=== PATIENT | female | born 1955 | race Caucasian/White ===

== ENCOUNTER 2024-03-29 20:32 | Inpatient (IN) | payer MEDICARE, OTHER ==
--- NOTE | 2024-03-29 20:46 | ED ---
Abdominal Pain HPI - General Source: patient, family, RN notes reviewed Mode of arrival: ambulatory Limitations: no limitations <Halley Camargo - Last Filed: 03/29/24 20:45> - General Source: patient, family, RN notes reviewed <Reg Mtz - Last Filed: 03/30/24 01:29> - General Stated Complaint: Weakness,Dehydration Time Seen by Provider: 03/29/24 20:45 - History of Present Illness Initial Comments: Quick note: 68-year-old female presented to ER with a chief complaint of weakness and abdominal distention. She states for approximately 1-1/2 weeks she has noticed an increase in abdominal discomfort and distention. She denies any nausea, vomiting, constipation/diarrhea. She does report a decreased appetite. states they were sent by Dr. Esparza due to weakness. Denies any fevers. (Halley Camargo) Patient is a 68-year-old female presents emergency department complaining of multiple weeks of worsening weakness, abdominal distention, as well as skin turning yellow. Patient does have history of alcohol abuse but last drink was over 2 weeks ago. Denies any abdominal pain other than distention. Denies any chest pain or shortness of breath. No other acute complaints at this time. Presents for further evaluation at this time. Denies having a PCP. (Reg Mtz) - Related Data Allergies Allergy/AdvReac Type Severity Reaction Status Date / Time azithromycin AdvReac Abdominal Verified 03/29/24 20:47 Pain Review of Systems ROS Other: All systems not noted in ROS Statement are negative. <Halley Camargo - Last Filed: 03/29/24 20:45> ROS Other: All systems not noted in ROS Statement are negative. <Reg Mtz - Last Filed: 03/30/24 01:29> ROS Statement: Those systems with pertinent positive or pertinent negative responses have been documented in the HPI. Review of Systems: CONST: Denies fever EYES: Denies blurry vision ENT: Denies nasal congestion C/V: Denies Chest pain RESP: Denies shortness of breath GI: Endorses abdominal distention : Denies dysuria SKIN: Denies rash. MSK: Denies joint pain. NEURO: Denies headache (Reg Mtz) General Exam <Halley Camargo - Last Filed: 03/29/24 20:45> <Reg Mtz - Last Filed: 03/30/24 01:29> - General Exam Comments Initial Comments: Visual Physical Exam Vital signs reviewed General: Well-appearing, nontoxic, no acute distress. Distended abdomen and jaundice Head: Normocephalic, atraumatic Eyes: PERRLA, EOMI ENT: Airway patent Chest: Nonlabored breathing Skin: No visual rash, normal skin tone Neuro: Alert and oriented 3 Musculoskeletal: No gross abnormalities (Halley Camargo) General: Appears anxious. HEAD: Normal with no signs of head trauma. EYES: PERRLA, EOMI, conjunctiva normal, no discharge. Scleral icterus. ENT: Hearing grossly intact, normal oropharynx. RESPIRATORY: Clear breath sounds bilaterally. No wheezes, rales, or rhonchi. C/V: Regular rate and rhythm. S1 and S2 auscultated, no edema, peripheral pulses 2+ and intact throughout ABD: Abdomen is distended with fluid wave. No significant tenderness. No guarding. EXT: Normal range of motion, no obvious deformity SKIN: Patient is jaundiced. NEURO: Alert and oriented x 4. (Reg Mtz) Course Vital Signs 03/29/24 20:41 Temperature 97.9 F Pulse Rate 114 H Respiratory 18 Rate Blood Pressure 118/72 O2 Sat by Pulse 94 L Oximetry Medical Decision Making <Halley Camargo - Last Filed: 03/29/24 20:45> - Lab Data Result diagrams: 03/29/24 20:58 03/29/24 20:58 <Reg Mtz - Last Filed: 03/30/24 01:29> - Medical Decision Making I performed the quick note portion of this chart. Electronically signed by Halley Camargo PA-C (Halley Camargo) Was pt. sent in by a medical professional or institution (YESENIA Ludwig, FUR TAILOR, urgent care, hospital, or jail...) When possible be specific @ -No Did you speak to anyone other than the patient for history (EMS, parent, family, police, friend...)? What history was obtained from this source @ -No Did you review nursing and triage notes (agree or disagree)? Why? @ -I reviewed and agree with nursing and triage notes Were old charts reviewed (outside hosp., previous admission, EMS record, old EKG, old radiological studies, urgent care reports/EKG's, jail records)? Report findings @ -No old charts were reviewed Differential Diagnosis (chest pain, altered mental status, abdominal pain women, abdominal pain men, vaginal bleeding, weakness, fever, dyspnea, syncope, headache, dizziness, GI bleed, back pain, seizure, CVA, palpatations, mental health, musculoskeletal)? @ -Differential Abdominal Pain Women: Appendicitis, Cholecystitis, diverticulosis, ischemic bowel, pancreatitis, hepatitis, UTI, gastroenteritis, AAA, incarcerated hernia, bowel obstruction, constipation, inflammatory bowel, hepatitis, peptic ulcer disease, splenic infarction, perforated viscus, vulvitis, ovarian torsion, PID, kidney stone, placenta abruption, this is not meant to be an all-inclusive list EKG interpreted by me (3pts min.). @ -None done X-rays interpreted by me (1pt min.). @ -None done CT interpreted by me (1pt min.). @ -CT abdomen pelvis reveals liver cirrhosis, portal venous hypertension with some severe intraperitoneal ascites and paraesophageal varices. U/S interpreted by me (1pt. min.). @ -None done What testing was considered but not performed or refused? (CT, X-rays, U/S, labs)? Why? @ -None What meds were considered but not given or refused? Why? @ -None Did you discuss the management of the patient with other professionals (professionals i.e. , PA, FUR TAILOR, lab, RT, psych nurse, social work job titles, wire insulator, te acher, loan officer, classification case manager)? Give summary @ -Discussed with admitting physician, city call Dr. Carmen who accepted the admission. Was smoking cessation discussed for >3mins.? @ -No Was critical care preformed (if so, how long)? @ -No Were there social determinants of health that impacted care today? How? (Homelessness, low income, unemployed, alcoholism, drug addiction, transportation, low edu. Level, literacy, decrease access to med. care, [facility], rehab)? @ -No Was there de-escalation of care discussed even if they declined (Discuss DNR or withdrawal of care, Hospice)? DNR status @ -No What co-morbidities impacted this encounter? (DM, HTN, Smoking, COPD, CAD, Cancer, CVA, ARF, Chemo, Hep., AIDS, mental health diagnosis, sleep apnea, morbid obesity)? @ -Alcohol abuse Was patient admitted / discharged? Hospital course, mention meds given and route, prescriptions, significant lab abnormalities, going to OR and other pertinent info. @ -Patient presents emergency department with abdominal distention, turning yellow, weakness, which has been ongoing for a few weeks. Workup started as a quick note. Labs returned remarkable for elevated hepatobiliary function in the setting of chronic alcohol abuse and findings of cirrhosis and portal venous hypertension on CT imaging likely all secondary to her alcohol abuse. Lipase is also slightly elevated. She has no pain or tenderness. I believe hepatobiliary labs as well as elevated lactic acid are all secondary to the cirrhosis. I discussed with the patient. She does feel anxious. No concern for infection at this time. Patient will be empirically given a dose of Zosyn as well as IV Protonix. She is given a dose of Ativan. To avoid making the ascites worse we will not provide her with IV fluids at this time but encourage oral hydration. I recommended admission for evaluation by gastroenterology Dr. Moss and she was in agreement this plan. I spoke with the admitting physician, Dr. Churchill who accepted the admission. Dr. Moss consulted. Undiagnosed new problem with uncertain prognosis? @ -No Drug Therapy requiring intensive monitoring for toxicity (Heparin, Nitro, Insulin, Cardizem)? @ -No Were any procedures done? @ -No Diagnosis/symptom? @ -Cirrhosis, ascites, jaundice, alcohol abuse Acute, or Chronic, or Acute on Chronic? @ -Acute Uncomplicated (without systemic symptoms) or Complicated (systemic symptoms)? @ -Complicated Side effects of treatment? @ -No Exacerbation, Progression, or Severe Exacerbation? @ -No Poses a threat to life or bodily function? How? (Chest pain, USA, PR, pneumonia, PE, COPD, DKA, ARF, appy, cholecystitis, CVA, Diverticulitis, Homicidal, Suicidal, threat to staff... and all critical care pts) @ -Yes (Reg Mtz) - Lab Data Lab Results 03/29/24 03/29/24 03/29/24 Range/Units 20:58 20:58 20:58 WBC 12.0 H (3.8-10.6) k/uL RBC 3.45 L (3.80-5.40) m/uL Hgb 13.5 (11.4-16.0) gm/dL Hct 40.8 (34.0-46.0) % MCV 118.3 H (80.0-100.0) fL MCH 39.1 H (25.0-35.0) pg MCHC 33.1 (31.0-37.0) g/dL RDW 13.8 (11.5-15.5) % Plt Count 174 (150-450) k/uL MPV 9.4 Neutrophils % 77 % Lymphocytes % 13 % Monocytes % 7 % Eosinophils % 1 % Basophils % 1 % Neutrophils # 9.3 H (1.3-7.7) k/uL Lymphocytes # 1.6 (1.0-4.8) k/uL Monocytes # 0.8 (0-1.0) k/uL Eosinophils # 0.1 (0-0.7) k/uL Basophils # 0.1 (0-0.2) k/uL Manual Slide Review Performed Polychromasia Present Macrocytosis Marked A Target Cells Present PT 16.8 H (10.0-12.5) sec INR 1.7 H (<1.2) APTT 35.1 H (22.0-30.0) sec Sodium 130 L (137-145) mmol/L Potassium 4.6 (3.5-5.1) mmol/L Chloride 97 L (98-107) mmol/L Carbon Dioxide 20 L (22-30) mmol/L Anion Gap 13 mmol/L BUN 22 H (7-17) mg/dL Creatinine 0.85 (0.52-1.04) mg/dL Est GFR (CKD-EPI)AfAm 81 (>60 ml/min/1.73 sqM) Est GFR (CKD-EPI)NonAf 70 (>60 ml/min/1.73 sqM) Glucose 129 H (74-99) mg/dL Lactic Ac Sepsis Rflx Plasma Lactic Acid Santos (0.7-2.0) mmol/L Calcium 8.5 (8.4-10.2) mg/dL Total Bilirubin 8.7 H (0.2-1.3) mg/dL Conjugated Bilirubin 2.9 H (0.0-0.3) mg/dL Unconjugated Bilirubin 2.4 H (0.0-1.1) mg/dL Delta Bilirubin 3.4 H (0.0-0.2) mg/dL AST 161 H (14-36) U/L ALT 41 H (4-34) U/L Alkaline Phosphatase 192 H (38-126) U/L Ammonia (<30) umol/L Total Protein 8.6 H (6.3-8.2) g/dL Albumin 3.3 L (3.5-5.0) g/dL Amylase 67 (30-110) U/L Lipase 629 H (23-300) U/L Serum Alcohol mg/dL Influenza Type A (PCR) (Not Detectd) Influenza Type B (PCR) (Not Detectd) RSV (PCR) (Not Detectd) SARS-CoV-2 (PCR) (Not Detectd) 03/29/24 03/29/24 03/29/24 Range/Units 20:58 21:46 23:09 WBC (3.8-10.6) k/uL RBC (3.80-5.40) m/uL Hgb (11.4-16.0) gm/dL Hct (34.0-46.0) % MCV (80.0-100.0) fL MCH (25.0-35.0) pg MCHC (31.0-37.0) g/dL RDW (11.5-15.5) % Plt Count (150-450) k/uL MPV Neutrophils % % Lymphocytes % % Monocytes % % Eosinophils % % Basophils % % Neutrophils # (1.3-7.7) k/uL Lymphocytes # (1.0-4.8) k/uL Monocytes # (0-1.0) k/uL Eosinophils # (0-0.7) k/uL Basophils # (0-0.2) k/uL Manual Slide Review Polychromasia Macrocytosis Target Cells PT (10.0-12.5) sec INR (<1.2) APTT (22.0-30.0) sec Sodium (137-145) mmol/L Potassium (3.5-5.1) mmol/L Chloride (98-107) mmol/L Carbon Dioxide (22-30) mmol/L Anion Gap mmol/L BUN (7-17) mg/dL Creatinine (0.52-1.04) mg/dL Est GFR (CKD-EPI)AfAm (>60 ml/min/1.73 sqM) Est GFR (CKD-EPI)NonAf (>60 ml/min/1.73 sqM) Glucose (74-99) mg/dL Lactic Ac Sepsis Rflx Y Plasma Lactic Acid Santos 3.7 H* (0.7-2.0) mmol/L Calcium (8.4-10.2) mg/dL Total Bilirubin (0.2-1.3) mg/dL Conjugated Bilirubin (0.0-0.3) mg/dL Unconjugated Bilirubin (0.0-1.1) mg/dL Delta Bilirubin (0.0-0.2) mg/dL AST (14-36) U/L ALT (4-34) U/L Alkaline Phosphatase (38-126) U/L Ammonia <9 (<30) umol/L Total Protein (6.3-8.2) g/dL Albumin (3.5-5.0) g/dL Amylase (30-110) U/L Lipase (23-300) U/L Serum Alcohol mg/dL Influenza Type A (PCR) (Not Detectd) Influenza Type B (PCR) (Not Detectd) RSV (PCR) (Not Detectd) SARS-CoV-2 (PCR) (Not Detectd) 03/29/24 03/29/24 Range/Units 23:09 23:09 WBC (3.8-10.6) k/uL RBC (3.80-5.40) m/uL Hgb (11.4-16.0) gm/dL Hct (34.0-46.0) % MCV (80.0-100.0) fL MCH (25.0-35.0) pg MCHC (31.0-37.0) g/dL RDW (11.5-15.5) % Plt Count (150-450) k/uL MPV Neutrophils % % Lymphocytes % % Monocytes % % Eosinophils % % Basophils % % Neutrophils # (1.3-7.7) k/uL Lymphocytes # (1.0-4.8) k/uL Monocytes # (0-1.0) k/uL Eosinophils # (0-0.7) k/uL Basophils # (0-0.2) k/uL Manual Slide Review Polychromasia Macrocytosis Target Cells PT (10.0-12.5) sec INR (<1.2) APTT (22.0-30.0) sec Sodium (137-145) mmol/L Potassium (3.5-5.1) mmol/L Chloride (98-107) mmol/L Carbon Dioxide (22-30) mmol/L Anion Gap mmol/L BUN (7-17) mg/dL Creatinine (0.52-1.04) mg/dL Est GFR (CKD-EPI)AfAm (>60 ml/min/1.73 sqM) Est GFR (CKD-EPI)NonAf (>60 ml/min/1.73 sqM) Glucose (74-99) mg/dL Lactic Ac Sepsis Rflx Plasma Lactic Acid Santos (0.7-2.0) mmol/L Calcium (8.4-10.2) mg/dL Total Bilirubin (0.2-1.3) mg/dL Conjugated Bilirubin (0.0-0.3) mg/dL Unconjugated Bilirubin (0.0-1.1) mg/dL Delta Bilirubin (0.0-0.2) mg/dL AST (14-36) U/L ALT (4-34) U/L Alkaline Phosphatase (38-126) U/L Ammonia (<30) umol/L Total Protein (6.3-8.2) g/dL Albumin (3.5-5.0) g/dL Amylase (30-110) U/L Lipase (23-300) U/L Serum Alcohol <10 mg/dL Influenza Type A (PCR) Not Detected (Not Detectd) Influenza Type B (PCR) Not Detected (Not Detectd) RSV (PCR) Not Detected (Not Detectd) SARS-CoV-2 (PCR) Not Detected (Not Detectd) Disposition <Halley Camargo - Last Filed: 03/29/24 20:45> Time of Disposition: 23:09 <Reg Mtz - Last Filed: 03/30/24 01:29> Clinical Impression: Cirrhosis, Ascites, Jaundice, Alcohol abuse Disposition: ADMITTED IP TO THIS HOSP Condition: Serious
[2024-03-29 21:32] LABS: ALT 41 U/L (4-34); African American GFR (CKD) 81 (>60 ml/min/1.73 sqM); Amylase 67 U/L (30-110); Anion Gap 13 mmol/L; Bilirubin, Conjugated 2.9 mg/dL (0.0-0.3); Bilirubin, Delta 3.4 mg/dL (0.0-0.2); Bilirubin,Unconjugated 2.4 mg/dL (0.0-1.1); Blood Urea Nitrogen 22 mg/dL (7-17); Calcium 8.5 mg/dL (8.4-10.2); Carbon Dioxide 20 mmol/L (22-30); Chloride 97 mmol/L (98-107); Glucose 129 mg/dL (74-99); INR 1.7 (<1.2); Lipase 629 U/L (23-300); Non-African American GFR(CKD) 70 (>60 ml/min/1.73 sqM); Partial Thromboplastin Time 35.1 sec (22.0-30.0); Prothrombin Time 16.8 sec (10.0-12.5); Sodium 130 mmol/L (137-145); Total Bilirubin 8.7 mg/dL (0.2-1.3); Total Protein 8.6 g/dL (6.3-8.2)
[2024-03-29 21:38] LABS: Basophils # (A) 0.1 k/uL (0-0.2); Basophils % (A) 1 %; Eosinophils # (A) 0.1 k/uL (0-0.7); Eosinophils % (A) 1 %; HCT 40.8 % (34.0-46.0); HGB 13.5 gm/dL (11.4-16.0); Lymphocytes # (A) 1.6 k/uL (1.0-4.8); Lymphocytes % (A) 13 %; MCH 39.1 pg (25.0-35.0); MCHC 33.1 g/dL (31.0-37.0); MCV 118.3 fL (80.0-100.0); Macrocytosis Marked; Mean Platelet Volume 9.4; Monocytes # (A) 0.8 k/uL (0-1.0); Monocytes % (A) 7 %; Neutrophils # (A) 9.3 k/uL (1.3-7.7); Neutrophils % (A) 77 %; Platelet Count 174 k/uL (150-450); RBC 3.45 m/uL (3.80-5.40); RDW 13.8 % (11.5-15.5)
[2024-03-29 21:43] LABS: AST 161 U/L (14-36); Albumin 3.3 g/dL (3.5-5.0); Alkaline Phosphatase 192 U/L (38-126); Potassium 4.6 mmol/L (3.5-5.1)
--- NOTE | 2024-03-29 22:22 | CT ---
EXAMINATION TYPE: CT abdomen pelvis w con DATE OF EXAM: 03/29/2024 HISTORY: abd distention and jaundice CT DLP: 880.6mGycm Automated Exposure Control for Dose Reduction was Utilized. CONTRAST: CT scan of the abdomen and pelvis is performed with IV Contrast, patient injected with 100 ml mL of I sovue 300. COMPARISON: None. FINDINGS: LUNG BASES: No significant abnormality is appreciated. LIVER/GB: Gallbladder has distended margins. Finding probably related to underlying hepatocellular di sease. Liver is heterogeneously hypodense and somewhat small in size. Patent nondilated main portal v ein. PANCREAS: No significant abnormality is seen. SPLEEN: No significant abnormality is seen. ADRENALS: No significant abnormality is seen. KIDNEYS: No significant abnormality is seen. BOWEL: Paraesophageal varices distal esophagus. No abnormal small or large bowel dilatation. Stomach poorly distended and suboptimally evaluated. UTERUS/ADNEXA: No gross abnormality seen. LYMPH NODES: No greater than 1cm abdominal or pelvic lymph nodes are appreciated. OSSEOUS STRUCTURES: Moderate narrowing of both hip joints. OTHER: Moderate to severe intraperitoneal ascites in the abdomen and pelvis. IMPRESSION: 1. Underlying cirrhosis. Underlying portal venous hypertension with moderate to severe intraperitonea l ascites and paraesophageal varices.
[2024-03-29 22:30] LABS: Polychromasia Present; Target Cells Present
[2024-03-29] MEDS ORDERED: ONDANSETRON 4 MG/2 ML VIAL IVP PRN (23:09)
[2024-03-29] MEDS ORDERED: NALOXONE 0.4 MG/ML 1 ML VIAL IV PRN (23:09)
[2024-03-30] MEDS: PIPERACILLIN-TAZOBACTAM 3.375 GM in SODIUM CHLORIDE 0.9% 100 ML IVPB STA (00:37)
[2024-03-30] MEDS: LORazepam 0.5 MG TAB PO STA (00:37)
[2024-03-30] MEDS: PANTOPRAZOLE 40 MG/10 ML VIAL IVP STA (00:38)
[2024-03-30 07:24] LABS: Appearance,Urine Clear (Clear); Bacteria,Urine Rare /hpf; Bilirubin,Urine 1+ (Negative); Blood,Urine Small (Negative); Color,Urine Dark Yellow; Glucose,Urine (UA) Negative (Negative); Ketones,Urine Trace (Negative); Leukocyte Esterase,Urine Negative (Negative); Mucus,Urine Rare /hpf; Nitrite,Urine Negative (Negative); PH, Urine 5.5 (5.0-8.0); Protein,Urine Trace (Negative); RBC,Urine 6 /hpf (0-5); Squamous Epithelial Cell,Urine 10 /hpf (0-4); WBC,Urine 1 /hpf (0-5)
[2024-03-30 07:29] LABS: Specific Gravity,Urine >1.050 (1.001-1.035)
[2024-03-30 08:06] LABS: Basophils # (A) 0.1 k/uL (0-0.2); Basophils % (A) 1 %; Eosinophils # (A) 0.1 k/uL (0-0.7); Eosinophils % (A) 1 %; HCT 39.3 % (34.0-46.0); Lymphocytes # (A) 1.9 k/uL (1.0-4.8); Lymphocytes % (A) 16 %; MCH 39.8 pg (25.0-35.0); MCHC 33.1 g/dL (31.0-37.0); MCV 120.2 fL (80.0-100.0); Macrocytosis Marked; Mean Platelet Volume 9.4; Monocytes # (A) 0.7 k/uL (0-1.0); Monocytes % (A) 6 %; Neutrophils # (A) 9.4 k/uL (1.3-7.7); Neutrophils % (A) 77 %; Platelet Count 189 k/uL (150-450); RBC 3.27 m/uL (3.80-5.40); RDW 13.8 % (11.5-15.5); WBC 12.2 k/uL (3.8-10.6)
[2024-03-30 08:11] LABS: ALT 37 U/L (4-34); African American GFR (CKD) 81 (>60 ml/min/1.73 sqM); Anion Gap 12 mmol/L; Blood Urea Nitrogen 22 mg/dL (7-17); Calcium 8.2 mg/dL (8.4-10.2); Carbon Dioxide 21 mmol/L (22-30); Chloride 97 mmol/L (98-107); Glucose 105 mg/dL (74-99); Non-African American GFR(CKD) 70 (>60 ml/min/1.73 sqM); Sodium 130 mmol/L (137-145); Total Bilirubin 8.1 mg/dL (0.2-1.3); Total Protein 8.1 g/dL (6.3-8.2)
[2024-03-30 08:16] LABS: Potassium 4.7 mmol/L (3.5-5.1)
[2024-03-30 08:17] LABS: AST 142 U/L (14-36); Alkaline Phosphatase 168 U/L (38-126)
[2024-03-30] MEDS: PANTOPRAZOLE 40 MG/10 ML VIAL IVP SCH (09:21)
[2024-03-30] MEDS: FUROSEMIDE 20 MG TAB PO SCH (09:21)
[2024-03-30] MEDS: SPIRONOLACTONE 25 MG TAB PO SCH (09:22)
--- NOTE | 2024-03-30 13:22 | P.CONS ---
History of Present Illness - Reason for Consult Consult date: 03/30/24 Ascites Requesting physician: Reg Mtz - Chief Complaint Abdominal distention - History of Present Illness This is a pleasant 68-year-old female who presented to the emergency department for increased weakness, decreased appetite and abdominal distention. Patient has history of alcohol abuse and was drinking quite heavily. She admitted to drinking 3 back on squirts daily for at least 10 years. States she has not been drinking at all for the last 2 weeks duration. She had abdominal CT that reports cirrhosis of the liver, portal hypertension with moderate to severe ascites. She denies any previous history of liver disease, no history of hepatitis, no previous history of ascites. States that her abdomen has been distended for last 2 weeks duration with some discomfort. at the bedside states that he has not really noticed that she was jaundice but states that she has been sleeping quite a bit and had decreased appetite not eating or drinking much. Patient with elevated liver enzymes. She denies any abdominal pain at this time, no nausea or vomiting, no fevers or chills. Review of Systems REVIEW OF SYSTEMS: CARDIOPULMONARY: No chest pain or shortness of breath. Gastrointestinal: Abdominal pain. Abdominal distention. Decreased appetite. No nausea or vomiting. No hematemesis, coffee-ground emesis. No rectal bleeding, or melena. GENITOURINARY: No dysuria or hematuria. MUSCULOSKELETAL: Reports normal range of motion. SKIN: No rashes. No jaundice. ENDOCRINE: No chills, fevers. No excessive weight gain or loss. No polydipsia or polyuria. PSYCHIATRIC: Unremarkable. NEUROLOGY: No change in mental status. Denies dizziness, headache. ENT: Vision unremarkable. CONSTITUTIONAL: No recent weight loss. No fever, chills, night sweats. Weakness. Fatigue. Past Medical History Past Medical History: No Reported History History of Any Multi-Drug Resistant Organisms: None Reported Past Surgical History: No Surgical Hx Reported Past Psychological History: No Psychological Hx Reported Smoking Status: Never smoker Past Alcohol Use History: Daily Past Drug Use History: None Reported Medications and Allergies Home Medications Medication Instructions Recorded Confirmed Type No Known Home Medications 03/30/24 03/30/24 History Allergies Allergy/AdvReac Type Severity Reaction Status Date / Time azithromycin AdvReac Abdominal Verified 03/30/24 07:52 Pain Physical Exam Vitals: Vital Signs Temp Pulse Resp BP Pulse Ox 03/30/24 07:35 97.8 F 89 16 105/65 93 L 03/30/24 06:00 86 18 95/44 93 L 03/30/24 04:58 92 18 111/62 92 L 03/30/24 02:00 92 18 98/61 93 L 03/29/24 20:41 97.9 F 114 H 18 118/72 94 L Intake and Output 03/29/24 03/30/24 03/30/24 22:59 06:59 14:59 Other: Weight 74.843 kg General appearance: The patient is alert, oriented, appears in no acute distress. HET: Head is normocephalic and atraumatic. Conjunctiva pink. Sclera icteric. Neck: Supple without lymphadenopathy. Trachea midline. Heart: Regular. Lungs: Equal expansion, normal respiratory effort. Abdomen: Soft, nontender, distended, large amount of ascites. Skin: No rashes. Jaundice. Extremities: Normal skin color and turgor. No pedal edema. Neurological: No focal deficits. Alert and oriented x3. Results CBC & Chem 7: 03/30/24 06:49 03/30/24 06:49 Labs: Abnormal Lab Results - Last 24 Hours (Table) 03/29/24 03/29/24 03/29/24 Range/Units 20:58 20:58 20:58 WBC 12.0 H (3.8-10.6) k/uL RBC 3.45 L (3.80-5.40) m/uL MCV 118.3 H (80.0-100.0) fL MCH 39.1 H (25.0-35.0) pg Neutrophils # 9.3 H (1.3-7.7) k/uL Macrocytosis Marked A PT 16.8 H (10.0-12.5) sec INR 1.7 H (<1.2) APTT 35.1 H (22.0-30.0) sec Sodium 130 L (137-145) mmol/L Chloride 97 L (98-107) mmol/L Carbon Dioxide 20 L (22-30) mmol/L BUN 22 H (7-17) mg/dL Glucose 129 H (74-99) mg/dL Plasma Lactic Acid Santos (0.7-2.0) mmol/L Calcium (8.4-10.2) mg/dL Total Bilirubin 8.7 H (0.2-1.3) mg/dL Conjugated Bilirubin 2.9 H (0.0-0.3) mg/dL Unconjugated Bilirubin 2.4 H (0.0-1.1) mg/dL Delta Bilirubin 3.4 H (0.0-0.2) mg/dL AST 161 H (14-36) U/L ALT 41 H (4-34) U/L Alkaline Phosphatase 192 H (38-126) U/L Total Protein 8.6 H (6.3-8.2) g/dL Albumin 3.3 L (3.5-5.0) g/dL Lipase 629 H (23-300) U/L Ur Specific Ora (1.001-1.035) Urine Protein (Negative) Urine Ketones (Negative) Urine Blood (Negative) Urine Bilirubin (Negative) Urine RBC (0-5) /hpf Ur Squamous Epith Cells (0-4) /hpf Urine Bacteria (None) /hpf Urine Mucus (None) /hpf 03/29/24 03/29/24 03/30/24 Range/Units 20:58 23:57 06:35 WBC (3.8-10.6) k/uL RBC (3.80-5.40) m/uL MCV (80.0-100.0) fL MCH (25.0-35.0) pg Neutrophils # (1.3-7.7) k/uL Macrocytosis PT (10.0-12.5) sec INR (<1.2) APTT (22.0-30.0) sec Sodium (137-145) mmol/L Chloride (98-107) mmol/L Carbon Dioxide (22-30) mmol/L BUN (7-17) mg/dL Glucose (74-99) mg/dL Plasma Lactic Acid Santos 3.7 H* 3.1 H* (0.7-2.0) mmol/L Calcium (8.4-10.2) mg/dL Total Bilirubin (0.2-1.3) mg/dL Conjugated Bilirubin (0.0-0.3) mg/dL Unconjugated Bilirubin (0.0-1.1) mg/dL Delta Bilirubin (0.0-0.2) mg/dL AST (14-36) U/L ALT (4-34) U/L Alkaline Phosphatase (38-126) U/L Total Protein (6.3-8.2) g/dL Albumin (3.5-5.0) g/dL Lipase (23-300) U/L Ur Specific Ora >1.050 H (1.001-1.035) Urine Protein Trace H (Negative) Urine Ketones Trace H (Negative) Urine Blood Small H (Negative) Urine Bilirubin 1+ H (Negative) Urine RBC 6 H (0-5) /hpf Ur Squamous Epith Cells 10 H (0-4) /hpf Urine Bacteria Rare H (None) /hpf Urine Mucus Rare H (None) /hpf 03/30/24 03/30/24 03/30/24 Range/Units 06:49 06:49 06:49 WBC 12.2 H (3.8-10.6) k/uL RBC 3.27 L (3.80-5.40) m/uL MCV 120.2 H (80.0-100.0) fL MCH 39.8 H (25.0-35.0) pg Neutrophils # 9.4 H (1.3-7.7) k/uL Macrocytosis Marked A PT (10.0-12.5) sec INR (<1.2) APTT (22.0-30.0) sec Sodium 130 L (137-145) mmol/L Chloride 97 L (98-107) mmol/L Carbon Dioxide 21 L (22-30) mmol/L BUN 22 H (7-17) mg/dL Glucose 105 H (74-99) mg/dL Plasma Lactic Acid Santos 3.0 H* (0.7-2.0) mmol/L Calcium 8.2 L (8.4-10.2) mg/dL Total Bilirubin 8.1 H (0.2-1.3) mg/dL Conjugated Bilirubin (0.0-0.3) mg/dL Unconjugated Bilirubin (0.0-1.1) mg/dL Delta Bilirubin (0.0-0.2) mg/dL AST 142 H (14-36) U/L ALT 37 H (4-34) U/L Alkaline Phosphatase 168 H (38-126) U/L Total Protein (6.3-8.2) g/dL Albumin 3.0 L (3.5-5.0) g/dL Lipase (23-300) U/L Ur Specific Ora (1.001-1.035) Urine Protein (Negative) Urine Ketones (Negative) Urine Blood (Negative) Urine Bilirubin (Negative) Urine RBC (0-5) /hpf Ur Squamous Epith Cells (0-4) /hpf Urine Bacteria (None) /hpf Urine Mucus (None) /hpf Comments: CT abdomen pelvis with contrast reports underlying cirrhosis. Underlying portal venous hypertension with moderate to severe intraperitoneal ascites and paraesophageal varices. Assessment and Plan (1) Cirrhosis Narrative/Plan: 68-year-old female with alcohol abuse over the last 10 years duration admitting to at least 3 liquor drinks daily presenting with weakness, fatigue, decreased appetite and abdominal distention. CT abdomen pelvis showing ascites and nodular liver consistent with cirrhosis including portal hypertension. Patient with decompensated cirrhosis of the liver now with ascites secondary to alcohol abuse. Labs are consistent with alcohol cirrhosis of the liver. Will plan for paracentesis, hepatitis panel. Discussed with patient and at the bedside importance of alcohol abstinence. Recommend low-sodium diet. Will start diuretics. Current Visit: Yes Status: Acute Code(s): K74.60 - UNSPECIFIED CIRRHOSIS OF LIVER SNOMED Code(s): 44857314 (2) Alcohol abuse Current Visit: Yes Status: Acute Code(s): F10.10 - ALCOHOL ABUSE, UNCOMPLICATED SNOMED Code(s): 06226245 (3) Ascites Current Visit: Yes Status: Acute Code(s): R18.8 - OTHER ASCITES SNOMED Code(s): 563131539 (4) Jaundice Current Visit: Yes Status: Acute Code(s): R17 - UNSPECIFIED JAUNDICE SNOMED Code(s): 89031124 Plan: 1. Continue symptomatic and supportive care 2. Daily CBC, CMP, INR 3. Consult to interventional radiology for paracentesis and fluid studies 4. Hepatitis panel ordered 5. Recommend low-sodium diet 6. Will start Lasix 20 mg daily, spironolactone 50 mg daily 7. Discussed with patient and patient's importance of alcohol abstinence 8. Patient will need to follow-up with gastroenterology in outpatient setting Thank you for this consultation, we will continue to follow. Dr. Osman Moss I agree with the dictator's note, documented as a scribe by Tonia Torre.
[2024-03-30 16:02] LABS: Hepatitis A Antibody IgM Nonreactive (Nonreactive); Hepatitis B Core IgM Nonreactive (Nonreactive); Hepatitis B Surface Antigen Nonreactive (Nonreactive); Hepatitis C IgG Antibody Nonreactive (Nonreactive)
--- NOTE | 2024-03-30 23:15 | HP ---
HISTORY AND PHYSICAL HISTORY OF PRESENT ILLNESS: This is a 68-year-old white female. She is in the hospital for weakness, abdominal distention for approximately 1-1/2 weeks. Increased abdominal discomfort, distention. Denies any nausea, vomiting, or diarrhea. Sent here by surgeon for her weakness. Denies any fevers. She has a history of alcohol abuse with last drink 2 weeks ago. Denies any shortness of breath, chest pain, or any other symptoms. ALLERGIES: Zithromax. REVIEW OF SYSTEMS: Otherwise negative. PHYSICAL EXAMINATION: VITAL SIGNS: Reviewed. Temperature 97.9, pulse 114, respiratory rate 16 to 18, blood pressure 118/72, and O2 94. GENERAL: She is well-appearing, nontoxic. ABDOMEN: Distended abdomen and some jaundice. HEENT: Normocephalic, atraumatic. Pupils equal, round, and reactive. NEUROLOGIC: Alert and oriented. LUNGS: Decreased breath sounds. HEART: S1, S2. LABORATORY DATA: Labs showed white count 12.0, hemoglobin 13.5. Her liver enzymes showed total bilirubin of 8.7, conjugated 2.7, AST is 161, ALT 41, lipase 629. Lactic acid 3.7. She has this dehydration, acute liver failure of unclear etiology, its alcohol abuse or possibly gallbladder related, we will get GI and surgical consult. PROGNOSIS: Guarded. Please see further orders. MMODL / IJN: [id number] /
--- NOTE | 2024-03-31 07:14 | P.CRDCN ---
History of Present Illness History of present illness: HISTORY OF PRESENTING ILLNESS This is a pleasant 68-year-old with past medical history significant for alcohol abuse and recent liver failure who presents secondary to increase in abdominal distention, waking. She had never been told she has liver failure before however has been noticing some increased yellow in her eyes. She denies any chest pain or pressure. She is found to have liver failure with total bilirubin 8.7, direct bilirubin 2.9, unconjugated bilirubin 2.4, AST 161, ALT 41, alk phos 192, albumin 3.3, lipase 629, lactic acid 3.7. CT showed ascites. Cardiology was consult at secondary abnormal EKG. EKG shows sinus rhythm with ST depressions in anterior leads. She denies any chest pain or pressure or significant shortness breath. She admits it is somewhat harder to breathe with full stomach. She does not smoke and states she usually drinks pop and vodka. Family history of mother with heart disease later in life. REVIEW OF SYSTEMS At the time of my exam: CONSTITUTIONAL: Denies fever or chills. CARDIOVASCULAR: Denies chest pain, shortness of breath, orthopnea, PND or palpitations. RESPIRATORY: Denies cough. GASTROINTESTINAL: Denies abdominal pain, diarrhea, constipation, nausea or vomiting. MUSCULOSKELETAL: Denies myalgias. NEUROLOGIC: Denies numbness, tingling or weakness. ENDOCRINE: Denies fatigue, weight change, polydipsia or polyurina. GENITOURINARY: Denies burning, hematuria or urgency with micturation. HEMATOLOGIC: Denies history of anemia or bleeding. PHYSICAL EXAMINATION Vital signs reviewed. CONSTITUTIONAL: No apparent distress. HEENT: Head is normocephalic. Pupils are equal, round. Sclerae anicteric. Mucous membranes of the mouth are moist. No JVD. No carotid bruit. CHEST EXAMINATION: Lungs are clear to auscultation. No chest wall tenderness is noted on palpation or with deep breathing. HEART EXAMINATION: Regular rate and rhythm. S1, S2 heard. +2/6 systolic murmur, no gallops or rub. ABDOMEN: Soft, nontender, +distended. Positive bowel sounds. EXTREMITIES: 2+ peripheral pulses, no lower extremity edema and no calf tende rness. NEUROLOGIC EXAMINATION: Patient is awake, alert and oriented x3. ASSESSMENT Acute liver failure Alcohol abuse Abnormal EKG lactic acidosis PLAN patient with abnormal EKG however no significant symptoms. She does however have liver failure and lactic acidosis and may be related to stress from liver failure. Repeat EKG today. Check 2-D echo to evaluate left trigger function. Not having any significant ischemic symptoms. Check BNP as well as troponin for completeness sake. continue with diuretics and patient being evaluated for paracentesis. Further recommendations to follow. Past Medical History Past Medical History: No Reported History Additional Past Medical History / Comment(s): patient reported hx of heart murmur History of Any Multi-Drug Resistant Organisms: None Reported Past Surgical History: No Surgical Hx Reported Past Anesthesia/Blood Transfusion Reactions: No Reported Reaction Past Psychological History: No Psychological Hx Reported Smoking Status: Never smoker Past Alcohol Use History: Daily Past Drug Use History: None Reported Medications and Allergies Home Medications Medication Instructions Recorded Confirmed Type No Known Home Medications 03/30/24 03/30/24 History Allergies Allergy/AdvReac Type Severity Reaction Status Date / Time azithromycin AdvReac Abdominal Verified 03/30/24 07:52 Pain Physical Exam Vitals: Vital Signs Temp Pulse Pulse Resp BP BP Pulse Ox 03/31/24 02:00 98.3 F 92 18 109/59 94 L 03/30/24 21:30 97.5 F L 89 18 116/62 94 L 03/30/24 20:27 91 18 102/55 93 L 03/30/24 18:57 88 16 108/64 92 L 03/30/24 18:00 86 16 100/62 94 L 03/30/24 17:00 88 16 100/65 94 L 03/30/24 16:00 86 16 116/70 94 L 03/30/24 15:00 88 16 104/62 96 03/30/24 14:00 68 16 130/68 94 L 03/30/24 13:05 90 16 102/60 95 03/30/24 12:00 92 16 102/60 93 L 03/30/24 10:00 88 18 100/60 93 L 03/30/24 09:18 89 16 103/65 96 03/30/24 07:35 97.8 F 89 16 105/65 93 L Intake and Output 03/30/24 03/31/24 03/31/24 22:59 06:59 14:59 Intake Total 0 Balance 0 Intake: Oral 0 Other: Voiding Method Toilet # Voids 1 Weight 74.843 kg Results 03/30/24 06:49 03/30/24 06:49 Cardiac Enzymes 03/30/24 Range/Units 06:49 AST 142 H (14-36) U/L CBC 03/30/24 Range/Units 06:49 WBC 12.2 H (3.8-10.6) k/uL RBC 3.27 L (3.80-5.40) m/uL Hgb 13.0 (11.4-16.0) gm/dL Hct 39.3 (34.0-46.0) % Plt Count 189 (150-450) k/uL Comprehensive Metabolic Panel 03/30/24 Range/Units 06:49 Sodium 130 L (137-145) mmol/L Potassium 4.7 (3.5-5.1) mmol/L Chloride 97 L (98-107) mmol/L Carbon Dioxide 21 L (22-30) mmol/L BUN 22 H (7-17) mg/dL Creatinine 0.85 (0.52-1.04) mg/dL Glucose 105 H (74-99) mg/dL Calcium 8.2 L (8.4-10.2) mg/dL AST 142 H (14-36) U/L ALT 37 H (4-34) U/L Alkaline Phosphatase 168 H (38-126) U/L Total Protein 8.1 (6.3-8.2) g/dL Albumin 3.0 L (3.5-5.0) g/dL Current Medications Generic Name Dose Route Start Last Admin Trade Name Freq PRN Reason Stop Dose Admin Furosemide 20 mg 03/30/24 09:15 03/30/24 09:21 Furosemide 20 Mg Tab PO 20 mg DAILY JOAQUINA Administration Naloxone HCl 0.2 mg 03/29/24 23:09 Naloxone 0.4 Mg/Ml 1 Ml Vial IV Q2M PRN Opioid Reversal Ondansetron HCl 4 mg 03/29/24 23:09 Ondansetron 4 Mg/2 Ml Vial IVP Q8HR PRN Nausea And Vomiting Pantoprazole Sodium 40 mg 03/30/24 09:00 03/30/24 09:21 Pantoprazole 40 Mg/10 Ml Vial IVP 40 mg DAILY JOAQUINA Administration Spironolactone 50 mg 03/30/24 09:15 03/30/24 09:22 Spironolactone 25 Mg Tab PO 50 mg DAILY JOAQUINA Administration Intake and Output 03/30/24 03/31/24 03/31/24 22:59 06:59 14:59 Intake Total 0 Balance 0 Intake: Oral 0 Other: Voiding Method Toilet # Voids 1 Weight 74.843 kg 03/30/24 06:49 03/30/24 06:49
[2024-03-31 08:45] LABS: HCT 32.8 % (37.2-46.3); HGB 11.9 g/dL (12.0-15.0); MCH 38.9 pg (27.0-32.0); MCHC 36.3 g/dL (32.0-37.0); MCV 107.2 FL (80.0-97.0); Mean Platelet Volume 10.2 FL (9.5-12.2); NRBC Per 100 WBC 0 X 10*3/uL (0.00-0.01); Platelet Count 164 X 10*3/uL (140-440); RBC 3.06 X 10*6/uL (4.10-5.20); RDW 16.3 % (11.5-14.5); WBC 12.03 X 10*3/uL (4.50-10.00)
[2024-03-31 09:01] LABS: INR 1.65 sec (0.93-1.11); Prothrombin Time 17.2 sec (9.9-11.9)
[2024-03-31 09:18] LABS: ALT 37 U/L (8-44); AST 118 U/L (13-35); Albumin 2.7 g/dL (3.8-4.9); Albumin/Globulin Ratio 0.57 Ratio (1.60-3.17); Alkaline Phosphatase 137 U/L (41-126); BUN/Creat Ratio 19.18 Ratio (12.00-20.00); Blood Urea Nitrogen 21.1 mg/dL (9.0-27.0); Calcium 8.4 mg/dL (8.7-10.3); Carbon Dioxide 22.2 mmol/L (21.6-31.8); Chloride 93 mmol/L (96-109); Globulin 4.7 g/dL (1.6-3.3); Glucose 100 mg/dL (70-110); Potassium 3.9 mmol/L (3.5-5.5); Sodium 130 mmol/L (135-145); Total Bilirubin 6.8 mg/dL (0.3-1.2); Total Protein 7.4 g/dL (6.2-8.2)
[2024-03-31 09:31] LABS: Basophils # (A) 0.12 X 10*3/uL (0.00-0.10); Eosinophils # (A) 0.16 X 10*3/uL (0.04-0.35); Eosinophils % (A) 1.3 %; Lymphocytes # (A) 1.53 X 10*3/uL (0.90-5.00); Lymphocytes % (A) 12.7 %; Macrocytosis (M) 2+; Monocytes # (A) 0.89 X 10*3/uL (0.20-1.00); Monocytes % (A) 7.4 %; Neutrophils # (A) 9.19 X 10*3/uL (1.80-7.70); Neutrophils % (A) 76.4 %; Target Cells 2+
--- NOTE | 2024-03-31 13:01 | CA ---
Transthoracic Echo Report Name: Beena Esqueda Age: 68 Gender: F : 1955 Exam Date: 03/31/2024 08:47 Exam Location: [place] [facility] Ht (in): 66 Wt (lb): 165 Ordering Physician: Maurice Ramirez DO ([email or web address]) Attending/Referring Phys: Psychology Lecturer Reyna Degroot RDCS Procedure CPT: Indications: re: abnormal ekg Cardiac Hx: Technical Quality: Fair Contrast 1: Total Dose (mL): Contrast 2: Total Dose (mL): MEASUREMENTS (Male / Female) Normal Values 2D ECHO LV Diastolic Diameter PLAX 4.4 cm 4.2 - 5.9 / 3.9 - 5.3 cm LV Systolic Diameter PLAX 2.3 cm IVS Diastolic Thickness 0.8 cm 0.6 - 1.0 / 0.6 - 0.9 cm LVPW Diastolic Thickness 0.8 cm 0.6 - 1.0 / 0.6 - 0.9 cm LV Relative Wall Thickness 0.4 LVOT Diameter 1.8 cm LV Diastolic Volume MOD BP 84.2 cm??? 67 - 155 / 56 - 104 cm??? LV Systolic Volume MOD BP 32.0 cm??? 22 - 58 / 19 - 49 cm??? LV Ejection Fraction MOD BP 62.0 % >= 55 % LV Cardiac Index MOD BP 2579.0 cm???/min???m??? LV Diastolic Volume MOD 4C 80.5 cm??? LV Systolic Volume MOD 4C 29.9 cm??? LV Ejection Fraction MOD 4C 62.8 % LV Cardiac Index MOD 4C 2496.8 cm???/min???m??? LV Diastolic Length 4C 7.3 cm LV Systolic Length 4C 5.3 cm LV Diastolic Volume MOD 2C 80.1 cm??? LV Systolic Volume MOD 2C 33.9 cm??? LV Ejection Fraction MOD 2C 57.7 % LV Cardiac Index MOD 2C 2284.7 cm???/min???m??? LV Diastolic Length 2C 6.6 cm LV Systolic Length 2C 5.4 cm LA Volume 56.4 cm??? 18 - 58 / 22 - 52 cm??? LA Volume Index 30.0 cm???/m??? 16 - 28 cm???/m??? Ascending Aorta Diameter 2.9 cm DOPPLER AV Peak Velocity 176.5 cm/s AV Peak Gradient 12.5 mmHg AV Mean Velocity 126.3 cm/s AV Mean Gradient 7.1 mmHg AV Velocity Time Integral 36.1 cm LVOT Peak Velocity 122.6 cm/s LVOT Peak Gradient 6.0 mmHg LVOT Velocity Time Integral 22.6 cm LVOT Stroke Volume 59.7 cm??? LVOT Stroke Volume Index 32.4 ml/m??? LVOT Cardiac Index 2950.1 cm???/min???m??? AV Area Cont Eq vti 1.7 cm??? AV Area Cont Eq pk 1.8 cm??? MV Area PHT 5.5 cm??? Mitral E Point Velocity 54.7 cm/s Mitral A Point Velocity 74.5 cm/s Mitral E to A Ratio 0.7 MV Deceleration Time 137.9 ms TR Peak Velocity 229.8 cm/s TR Peak Gradient 21.1 mmHg Right Atrial Pressure 5.0 mmHg Pulmonary Artery Systolic Pressu 26.1 mmHg Right Ventricular Systolic Press 26.1 mmHg PV Peak Velocity 112.0 cm/s PV Peak Gradient 5.0 mmHg FINDINGS Left Ventricle Left ventricular ejection fraction is estimated at 60-65 %. Left ventricular cavity size normal. Left ventricular wall thickness normal. No obvious regional wall motion abnormalities. Right Ventricle Normal right ventricular size and function. Right ventricular systolic pressure within normal limits. Right Atrium Normal right atrial size. Left Atrium Mildly increased left atrial volume. Mitral Valve Structurally normal mitral valve. No evidence for mitral valve prolapse. No mitral stenosis. Trace mitral regurgitation. Aortic Valve Trileaflet aortic valve. No aortic valve stenosis or regurgitation. Tricuspid Valve Structurally normal tricuspid valve. No tricuspid stenosis. Mild tricuspid regurgitation. Pulmonic Valve Structurally normal pulmonic valve. No pulmonic stenosis. No pulmonic regurgitation. Pericardium No pericardial effusion. Aorta Normal size aortic root and proximal ascending aorta. CONCLUSIONS Left ventricular ejection fraction 60-65% RVSP 26 Trace mitral regurgitation Mild tricuspid regurgitation Previewed by: Dr. Maurice Ramirez DO (Electronically Signed) Final Date: 31 March 2024 13:00
--- NOTE | 2024-03-31 13:03 | US ---
EXAMINATION TYPE: US paracentesis abd w/image, diagnostic and therapeutic DATE OF EXAM: 03/31/2024 CLINICAL HISTORY: 68-year-old female new ascites referred for paracentesis The procedure was discussed with the patient. The risks, complications, benefits, and alternatives we re discussed and any questions were answered. Informed consent was obtained. The patient was placed s upine on the ultrasound table and prepped and draped in the usual sterile fashion. All elements of maximal barrier technique were utilized. Ultrasound was utilized to determine the precise skin entry site along the right lower quadrant. A 6 English safety centesis catheter and trocar technique was utilized to access the ascites collectio n. Approximately 7.5 liters of clear, straw-colored fluid was removed. An initial diagnostic sample with two 50 mL syringes were collected, labeled, and sent for laboratory analysis. Catheter was removed, hemostasis obtained, and a dressing placed. The patient was stable throughout the procedure and remained stable upon discharge from Department of Radiology. IMPRESSION: Successful diagnostic and therapeutic paracentesis under ultrasound guidance. 7.5 L of fluid removed.
[2024-03-31] MEDS: ALBUMIN HUMAN 25% 50 ML in EMPTY BAG 1 BAG IVPB SCH (13:53)
--- NOTE | 2024-03-31 13:55 | P.PN ---
Subjective Progress Note Date: 03/31/24 Principal diagnosis: Ascites This is a pleasant 68-year-old female who presented to the emergency department for increased weakness, decreased appetite and abdominal distention. Patient has history of alcohol abuse and was drinking quite heavily. She admitted to drinking 3 back on squirts daily for at least 10 years. States she has not been drinking at all for the last 2 weeks duration. She had abdominal CT that reports cirrhosis of the liver, portal hypertension with moderate to severe ascites. She denies any previous history of liver disease, no history of hepatitis, no previous history of ascites. States that her abdomen has been distended for last 2 weeks duration with some discomfort. at the bedside states that he has not really noticed that she was jaundice but states that she has been sleeping quite a bit and had decreased appetite not eating or drinking much. Patient with elevated liver enzymes. She denies any abdominal pain at this time, no nausea or vomiting, no fevers or chills. 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 Patient is scheduled to undergo paracentesis today. She is otherwise without any complaints. Denies any abdominal pain, nausea or vomiting. Today's labs WBC 12.0 hemoglobin 11.9 hematocrit 32 platelet count 164,000 INR 1.65 sodium 130 potassium 3.9 BUN 21 creatinine 1.1 total bilirubin 6.8 AST 118 ALT 37 alkaline phosphatase 137 hepatitis panel nonreactive. Objective - Vital Signs Vital signs: Vital Signs Temp 98.1 F 03/31/24 06:56 Pulse 83 03/31/24 11:50 Resp 16 03/31/24 11:32 BP 108/63 03/31/24 11:50 Pulse Ox 97 03/31/24 11:50 FiO2 Intake & Output 03/30/24 03/31/24 03/31/24 18:59 06:59 18:59 Intake Total 0 Balance 0 Weight 74.843 kg Intake: Oral 0 Other: Voiding Method Toilet # Voids 1 - Exam General appearance: The patient is alert, oriented, appears in no acute distress. HET: Head is normocephalic and atraumatic. Conjunctiva pink. Sclera icteric. Neck: Supple without lymphadenopathy. Abdomen: Soft, nontender, distended, ascites.. Extremities: Normal skin color and turgor. No pedal edema Skin: No rashes, jaundice. Neurological: No focal deficits. Alert and oriented. - Labs CBC & Chem 7: 03/31/24 05:41 03/31/24 05:41 Labs: Abnormal Lab Results - Last 24 Hours (Table) 03/31/24 03/31/24 03/31/24 Range/Units 05:41 05:41 05:41 WBC 12.03 H (4.50-10.00) X 10*3/uL RBC 3.06 L (4.10-5.20) X 10*6/uL Hgb 11.9 L (12.0-15.0) g/dL Hct 32.8 L (37.2-46.3) % MCV 107.2 H (80.0-97.0) FL MCH 38.9 H (27.0-32.0) pg RDW 16.3 H (11.5-14.5) % Immature Gran # 0.14 H (0.00-0.04) X 10*3/uL Neutrophils # 9.19 H (1.80-7.70) X 10*3/uL Basophils # 0.12 H (0.00-0.10) X 10*3/uL Macrocytosis (manual) 2+ A Target Cells 2+ A PT 17.2 H (9.9-11.9) sec INR 1.65 H (0.93-1.11) sec Sodium 130 L (135-145) mmol/L Chloride 93 L (96-109) mmol/L Anion Gap 14.80 H (4.00-12.00) mmol/L Est GFR (CKD-EPI) 54 L (>=60) Calcium 8.4 L (8.7-10.3) mg/dL Total Bilirubin 6.8 H (0.3-1.2) mg/dL AST 118 H (13-35) U/L Alkaline Phosphatase 137 H (41-126) U/L NT-Pro-B Natriuret Pep (0-125) pg/mL Albumin 2.7 L (3.8-4.9) g/dL Globulin 4.7 H (1.6-3.3) g/dL Albumin/Globulin Ratio 0.57 L (1.60-3.17) Ratio 03/31/24 Range/Units 07:46 WBC (4.50-10.00) X 10*3/uL RBC (4.10-5.20) X 10*6/uL Hgb (12.0-15.0) g/dL Hct (37.2-46.3) % MCV (80.0-97.0) FL MCH (27.0-32.0) pg RDW (11.5-14.5) % Immature Gran # (0.00-0.04) X 10*3/uL Neutrophils # (1.80-7.70) X 10*3/uL Basophils # (0.00-0.10) X 10*3/uL Macrocytosis (manual) Target Cells PT (9.9-11.9) sec INR (0.93-1.11) sec Sodium (135-145) mmol/L Chloride (96-109) mmol/L Anion Gap (4.00-12.00) mmol/L Est GFR (CKD-EPI) (>=60) Calcium (8.7-10.3) mg/dL Total Bilirubin (0.3-1.2) mg/dL AST (13-35) U/L Alkaline Phosphatase (41-126) U/L NT-Pro-B Natriuret Pep 401 H (0-125) pg/mL Albumin (3.8-4.9) g/dL Globulin (1.6-3.3) g/dL Albumin/Globulin Ratio (1.60-3.17) Ratio Microbiology - Last 24 Hours (Table) 03/29/24 23:45 Blood Culture - Preliminary Blood 03/29/24 23:30 Blood Culture - Preliminary Blood Assessment and Plan (1) Cirrhosis Narrative/Plan: 68-year-old female with alcohol abuse over the last 10 years duration admitting to at least 3 liquor drinks daily presenting with weakness, fatigue, decreased appetite and abdominal distention. CT abdomen pelvis showing ascites and nodular liver consistent with cirrhosis including portal hypertension. Patient with decompensated cirrhosis of the liver now with ascites secondary to alcohol abuse. Labs are consistent with alcohol cirrhosis of the liver. Will plan for paracentesis, hepatitis panel. Discussed with patient and at the bedside importance of alcohol abstinence. Recommend low-sodium diet. Will start diuretics. Current Visit: Yes Status: Acute Code(s): K74.60 - UNSPECIFIED CIRRHOSIS OF LIVER SNOMED Code(s): 15666964 (2) Alcohol abuse Current Visit: Yes Status: Acute Code(s): F10.10 - ALCOHOL ABUSE, UNCOMPLICATED SNOMED Code(s): 47496673 (3) Ascites Narrative/Plan: 7 L removed by paracentesis. Transfuse albumin 50 g Current Visit: Yes Status: Acute Code(s): R18.8 - OTHER ASCITES SNOMED Code(s): 889617106 (4) Jaundice Current Visit: Yes Status: Acute Code(s): R17 - UNSPECIFIED JAUNDICE SNOMED Code(s): 40738251 (5) Hyponatremia Current Visit: Yes Status: Acute Code(s): E87.1 - HYPO-OSMOLALITY AND HYPONATREMIA SNOMED Code(s): 91123715 Plan: 1. Continue symptomatic and supportive care 2. Daily CBC, CMP, INR 3. Consult to interventional radiology for paracentesis and fluid studies 4. Hepatitis panel ordered and reviewed 5. Recommend low-sodium diet 6. Fluid restriction 1500 mL daily 7. Continue Lasix 20 mg daily, spironolactone 50 mg daily 8. Discussed with patient and patient's importance of alcohol abstinence 9. Patient will need to follow-up with gastroenterology in outpatient setting Thank you for this consultation, we will continue to follow. Dr. Osman Moss I agree with the dictator's note, documented as a scribe by Tonia Torre.
[2024-03-31 14:32] VITALS: BMI 26.6
--- NOTE | 2024-03-31 15:40 | P.GSCN ---
History of Present Illness Consult date: 03/31/24 History of present illness: CHIEF COMPLAINT: Abdominal distention HISTORY OF PRESENT ILLNESS: This is a 68-year-old female who presented to the hospital with abdominal distention, weakness and overall not feeling well. Patient reports that she thought she had the flu. Patient has a known history of alcohol liver cirrhosis. She is scheduled for paracentesis today. This will be her first paracentesis. She is followed by GI service. Patient denies any prior history of pancreatitis or any history of gallstones. Surgical service is consulted for pancreatitis. There is mild elevation of lipase of 626. Patient has no abdominal pain. CT scan had reported gallbladder with distended margin secondary to hepatocellular disease liver cirrhosis portal hypertension and ascites. PAST MEDICAL HISTORY: See below PAST SURGICAL HISTORY: See below MEDICATIONS: See below ALLERGIES: See below SOCIAL HISTORY: No illicit drug use. REVIEW OF SYSTEMS: CONSTITUTIONAL: Denies fever or chills. HEENT: Denies blurred vision, vision changes, or eye pain. Denies hemoptysis CARDIOVASCULAR: Denies chest pain or pressure. RESPIRATORY: No shortness of breath. GASTROINTESTINAL: See HPI for pertinent findings HEMATOLOGIC: Denies bleeding disorders. GENITOURINARY: Denies any blood in urine or increased urinary frequency. SKIN: Denies pruitis. Denies rash. PHYSICAL EXAM: VITAL SIGNS: Reviewed GENERAL: Well-developed in no acute distress. HEENT: Scleral icterus ABDOMEN: Distended with evidence of fluid wave NEUROLOGIC: Alert and oriented. Cranial nerves II through XII grossly intact. skin: Jaundiced LABORATORY DATA: WBC 12.03 Hgb 11.9 platelets 164 INR 1.65 sodium 130 potassium 3.9 creatinine 1.1 Total bili 8.7 down to 6.8 LFTs elevated lipase 629 Serum alcohol level less than 10 Hepatitis panel nonreactive IMAGING: CT scan abdomen pelvis reports underlying cirrhosis. Underlying portal venous hypertension with moderate to severe intraperitoneal ascites and paraesophageal varices ASSESSMENT: 1. Abdominal distention due to abdominal ascites from liver cirrhosis 2. Elevated lipase level. No evidence of gallstones on CAT scan. No abdominal tenderness on exam 3. History of alcoholic liver cirrhosis PLAN: -Agree with paracentesis -No surgical intervention planned -Patient to follow-up with GI service -Educated patient on alcohol abstinence -Continue regular diet Physician Primary Health Care Nurse note has been reviewed by physician. Signing provider agrees with the documented findings, assessment, and plan of care. Past Medical History Past Medical History: No Reported History Additional Past Medical History / Comment(s): patient reported hx of heart murmur History of Any Multi-Drug Resistant Organisms: None Reported Past Surgical History: No Surgical Hx Reported Past Anesthesia/Blood Transfusion Reactions: No Reported Reaction Past Psychological History: No Psychological Hx Reported Smoking Status: Never smoker Past Alcohol Use History: Daily Past Drug Use History: None Reported Medications and Allergies Home Medications Medication Instructions Recorded Confirmed Type No Known Home Medications 03/30/24 03/30/24 History Allergies Allergy/AdvReac Type Severity Reaction Status Date / Time azithromycin AdvReac Abdominal Verified 03/30/24 07:52 Pain Surgical - Exam Vital Signs Temp Pulse Resp BP Pulse Ox 97.9 F 114 H 18 118/72 94 L 03/29/24 20:41 03/29/24 20:41 03/29/24 20:41 03/29/24 20:41 03/29/24 20:41 Results - Labs 03/31/24 05:41 03/31/24 05:41 Abnormal Lab Results - Last 24 Hours (Table) 03/31/24 03/31/24 03/31/24 Range/Units 05:41 05:41 05:41 WBC 12.03 H (4.50-10.00) X 10*3/uL RBC 3.06 L (4.10-5.20) X 10*6/uL Hgb 11.9 L (12.0-15.0) g/dL Hct 32.8 L (37.2-46.3) % MCV 107.2 H (80.0-97.0) FL MCH 38.9 H (27.0-32.0) pg RDW 16.3 H (11.5-14.5) % Immature Gran # 0.14 H (0.00-0.04) X 10*3/uL Neutrophils # 9.19 H (1.80-7.70) X 10*3/uL Basophils # 0.12 H (0.00-0.10) X 10*3/uL Macrocytosis (manual) 2+ A Target Cells 2+ A PT 17.2 H (9.9-11.9) sec INR 1.65 H (0.93-1.11) sec Sodium 130 L (135-145) mmol/L Chloride 93 L (96-109) mmol/L Anion Gap 14.80 H (4.00-12.00) mmol/L Est GFR (CKD-EPI) 54 L (>=60) Calcium 8.4 L (8.7-10.3) mg/dL Total Bilirubin 6.8 H (0.3-1.2) mg/dL AST 118 H (13-35) U/L Alkaline Phosphatase 137 H (41-126) U/L NT-Pro-B Natriuret Pep (0-125) pg/mL Albumin 2.7 L (3.8-4.9) g/dL Globulin 4.7 H (1.6-3.3) g/dL Albumin/Globulin Ratio 0.57 L (1.60-3.17) Ratio 03/31/24 Range/Units 07:46 WBC (4.50-10.00) X 10*3/uL RBC (4.10-5.20) X 10*6/uL Hgb (12.0-15.0) g/dL Hct (37.2-46.3) % MCV (80.0-97.0) FL MCH (27.0-32.0) pg RDW (11.5-14.5) % Immature Gran # (0.00-0.04) X 10*3/uL Neutrophils # (1.80-7.70) X 10*3/uL Basophils # (0.00-0.10) X 10*3/uL Macrocytosis (manual) Target Cells PT (9.9-11.9) sec INR (0.93-1.11) sec Sodium (135-145) mmol/L Chloride (96-109) mmol/L Anion Gap (4.00-12.00) mmol/L Est GFR (CKD-EPI) (>=60) Calcium (8.7-10.3) mg/dL Total Bilirubin (0.3-1.2) mg/dL AST (13-35) U/L Alkaline Phosphatase (41-126) U/L NT-Pro-B Natriuret Pep 401 H (0-125) pg/mL Albumin (3.8-4.9) g/dL Globulin (1.6-3.3) g/dL Albumin/Globulin Ratio (1.60-3.17) Ratio Microbiology - Last 24 Hours (Table) 03/29/24 23:45 Blood Culture - Preliminary Blood 03/29/24 23:30 Blood Culture - Preliminary Blood Diabetes panel 03/31/24 Range/Units 05:41 Sodium 130 L (135-145) mmol/L Potassium 3.9 (3.5-5.5) mmol/L Chloride 93 L (96-109) mmol/L Carbon Dioxide 22.2 (21.6-31.8) mmol/L BUN 21.1 (9.0-27.0) mg/dL Creatinine 1.1 (0.6-1.5) mg/dL Glucose 100 (70-110) mg/dL Calcium 8.4 L (8.7-10.3) mg/dL AST 118 H (13-35) U/L ALT 37 (8-44) U/L Alkaline Phosphatase 137 H (41-126) U/L Total Protein 7.4 (6.2-8.2) g/dL Albumin 2.7 L (3.8-4.9) g/dL Calcium panel 03/31/24 Range/Units 05:41 Calcium 8.4 L (8.7-10.3) mg/dL Albumin 2.7 L (3.8-4.9) g/dL Pituitary panel 03/31/24 Range/Units 05:41 Sodium 130 L (135-145) mmol/L Potassium 3.9 (3.5-5.5) mmol/L Chloride 93 L (96-109) mmol/L Carbon Dioxide 22.2 (21.6-31.8) mmol/L BUN 21.1 (9.0-27.0) mg/dL Creatinine 1.1 (0.6-1.5) mg/dL Glucose 100 (70-110) mg/dL Calcium 8.4 L (8.7-10.3) mg/dL Adrenal panel 03/31/24 Range/Units 05:41 Sodium 130 L (135-145) mmol/L Potassium 3.9 (3.5-5.5) mmol/L Chloride 93 L (96-109) mmol/L Carbon Dioxide 22.2 (21.6-31.8) mmol/L BUN 21.1 (9.0-27.0) mg/dL Creatinine 1.1 (0.6-1.5) mg/dL Glucose 100 (70-110) mg/dL Calcium 8.4 L (8.7-10.3) mg/dL Total Bilirubin 6.8 H (0.3-1.2) mg/dL AST 118 H (13-35) U/L ALT 37 (8-44) U/L Alkaline Phosphatase 137 H (41-126) U/L Total Protein 7.4 (6.2-8.2) g/dL Albumin 2.7 L (3.8-4.9) g/dL
[2024-03-31 19:11] LABS: T. Protein, Body Fluid Source Ascites; Total Protein, Body Fluid 2260 mg/dL
[2024-03-31 19:17] LABS: Albumin, Fluid Source Ascites
[2024-03-31 22:36] LABS: Appearance,BF Slightly Hazy (Clear)
[2024-04-01 08:35] LABS: HCT 30.9 % (37.2-46.3); HGB 11.3 g/dL (12.0-15.0); MCH 39.2 pg (27.0-32.0); MCHC 36.6 g/dL (32.0-37.0); MCV 107.3 FL (80.0-97.0); Mean Platelet Volume 10.3 FL (9.5-12.2); NRBC Per 100 WBC 0 X 10*3/uL (0.00-0.01); Platelet Count 150 X 10*3/uL (140-440); RBC 2.88 X 10*6/uL (4.10-5.20); RDW 16.1 % (11.5-14.5); WBC 11.18 X 10*3/uL (4.50-10.00)
[2024-04-01 08:58] LABS: ALT 31 U/L (8-44); AST 102 U/L (13-35); Albumin 3.1 g/dL (3.8-4.9); Albumin/Globulin Ratio 0.82 Ratio (1.60-3.17); Alkaline Phosphatase 111 U/L (41-126); Blood Urea Nitrogen 18.4 mg/dL (9.0-27.0); Carbon Dioxide 22.8 mmol/L (21.6-31.8); Chloride 96 mmol/L (96-109); Globulin 3.8 g/dL (1.6-3.3); Glucose 101 mg/dL (70-110); Potassium 3.8 mmol/L (3.5-5.5); Sodium 133 mmol/L (135-145); Total Bilirubin 7.3 mg/dL (0.3-1.2); Total Protein 6.9 g/dL (6.2-8.2)
[2024-04-01] MEDS ORDERED: HYDROcodone/APAP 5-325MG 1 EACH TAB PO PRN (09:43)
--- NOTE | 2024-04-01 12:09 | P.PN ---
Subjective HISTORY OF PRESENT ILLNESS: This is a pleasant 68-year-old with past medical history significant for alcohol abuse and recent liver failure who presents secondary to increase in abdominal distention, waking. She had never been told she has liver failure before however has been noticing some increased yellow in her eyes. She denies any chest pain or pressure. She is found to have liver failure with total bilirubin 8.7, direct bilirubin 2.9, unconjugated bilirubin 2.4, AST 161, ALT 41, alk phos 192, albumin 3.3, lipase 629, lactic acid 3.7. CT showed ascites. Cardiology was consult at secondary abnormal EKG. EKG shows sinus rhythm with ST depressions in anterior leads. She denies any chest pain or pressure or significant shortness breath. She admits it is somewhat harder to breathe with full stomach. She does not smoke and states she usually drinks pop and vodka. Family history of mother with heart disease later in life. 04/01/2024 patient examined this morning at the bedside. Patient denies any chest pain or pressure. echocardiogram completed revealing ejection fraction 60-65% with trace MR and mild TR. PHYSICAL EXAM: VITAL SIGNS: Reviewed. GENERAL: Well-developed in no acute distress. NECK: Supple. No JVD or thyromegaly LUNGS: Respirations even and unlabored. Lungs essentially clear to auscultation bilaterally. HEART: Regular rate and rhythm. S1 and S2 heard. EXTREMITIES: Normal range of motion. No clubbing or cyanosis. Peripheral pulses intact. No lower extremity edema ASSESSMENT: Acute liver failure Alcohol abuse Abnormal EKG Lactic acidosis PLAN: no further inpatient recommendations from a cardiac standpoint Patient to follow-up in [address] Ramirez When patient's acute issues have resolved recommend outpatient stress testing We will sign off. Please reconsult if needed. Nurse practitioner note has been reviewed by physician. Signing provider agrees with the documented findings, assessment, and plan of care. Objective - Vital Signs Vital signs: Vital Signs Temp 98.5 F 04/01/24 06:55 Pulse 90 04/01/24 06:55 Resp 18 04/01/24 06:55 BP 97/56 04/01/24 06:55 Pulse Ox 95 04/01/24 06:55 FiO2 Intake & Output 03/31/24 04/01/24 04/01/24 18:59 06:59 18:59 Intake Total 350 Balance 350 Weight 74.843 kg Intake: Oral 350 Other: Voiding Method Toilet # Voids 1 2 - Labs CBC & Chem 7: 04/01/24 05:55 04/01/24 05:55 Labs: Abnormal Lab Results - Last 24 Hours (Table) 03/31/24 04/01/24 04/01/24 Range/Units 11:09 05:55 05:55 WBC 11.18 H (4.50-10.00) X 10*3/uL RBC 2.88 L (4.10-5.20) X 10*6/uL Hgb 11.3 L (12.0-15.0) g/dL Hct 30.9 L (37.2-46.3) % MCV 107.3 H (80.0-97.0) FL MCH 39.2 H (27.0-32.0) pg RDW 16.1 H (11.5-14.5) % Sodium 133 L (135-145) mmol/L Anion Gap 14.20 H (4.00-12.00) mmol/L Calcium 8.0 L (8.7-10.3) mg/dL Total Bilirubin 7.3 H (0.3-1.2) mg/dL AST 102 H (13-35) U/L Albumin 3.1 L (3.8-4.9) g/dL Globulin 3.8 H (1.6-3.3) g/dL Albumin/Globulin Ratio 0.82 L (1.60-3.17) Ratio Fluid Appearance Slightly Hazy A (Clear) Microbiology - Last 24 Hours (Table) 03/29/24 23:45 Blood Culture - Preliminary Blood 03/29/24 23:30 Blood Culture - Preliminary Blood 03/31/24 11:09 Gram Stain - Preliminary Ascites Fluid
--- NOTE | 2024-04-01 12:19 | P.PN ---
Subjective Progress Note Date: 04/01/24 Principal diagnosis: Ascites This is a pleasant 68-year-old female who presented to the emergency department for increased weakness, decreased appetite and abdominal distention. Patient has history of alcohol abuse and was drinking quite heavily. She admitted to drinking 3 back on squirts daily for at least 10 years. States she has not been drinking at all for the last 2 weeks duration. She had abdominal CT that reports cirrhosis of the liver, portal hypertension with moderate to severe ascites. She denies any previous history of liver disease, no history of hepatitis, no previous history of ascites. States that her abdomen has been distended for last 2 weeks duration with some discomfort. at the bedside states that he has not really noticed that she was jaundice but states that she has been sleeping quite a bit and had decreased appetite not eating or drinking much. Patient with elevated liver enzymes. She denies any abdominal pain at this time, no nausea or vomiting, no fevers or chills. 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 Patient is scheduled to undergo paracentesis today. She is otherwise without any complaints. Denies any abdominal pain, nausea or vomiting. Today's labs WBC 12.0 hemoglobin 11.9 hematocrit 32 platelet count 164,000 INR 1.65 sodium 130 potassium 3.9 BUN 21 creatinine 1.1 total bilirubin 6.8 AST 118 ALT 37 alkaline phosphatase 137 hepatitis panel nonreactive. 04/01/2024 Patient seen and examined this morning as a follow-up. States she is feeling a little better yesterday. Yesterday she underwent paracentesis with 7.5 L removed following with albumin. She denies any abdominal pain, nausea or vomiting. WBC 11.1 hemoglobin 11.3 platelet count 150,000 sodium 133 potassium 3.8 18.4 creatinine 1.0 total bilirubin 7.3 AST 102-day-old T 31 alkaline phosphatase 111 Objective - Vital Signs Vital signs: Vital Signs Temp 98.2 F 04/01/24 01:48 Pulse 63 04/01/24 01:48 Resp 18 04/01/24 01:48 BP 105/48 04/01/24 01:48 Pulse Ox 93 L 04/01/24 01:48 FiO2 Intake & Output 07/18/24 07/19/24 07/19/24 18:59 06:59 18:59 Intake Total 350 Balance 350 Weight 74.843 kg Intake: Oral 350 Other: Voiding Method Toilet # Voids 1 2 - Exam General appearance: The patient is alert, oriented, appears in no acute distress. HET: Head is normocephalic and atraumatic. Conjunctiva pink. Sclera icteric. Neck: Supple without lymphadenopathy. Abdomen: Soft, nontender, nondistended. Extremities: Normal skin color and turgor. No pedal edema Skin: No rashes, jaundice. Neurological: No focal deficits. Alert and oriented. - Labs CBC & Chem 7: 04/01/24 05:55 04/01/24 05:55 Labs: Abnormal Lab Results - Last 24 Hours (Table) 03/31/24 03/31/24 03/31/24 Range/Units 05:41 05:41 05:41 WBC 12.03 H (4.50-10.00) X 10*3/uL RBC 3.06 L (4.10-5.20) X 10*6/uL Hgb 11.9 L (12.0-15.0) g/dL Hct 32.8 L (37.2-46.3) % MCV 107.2 H (80.0-97.0) FL MCH 38.9 H (27.0-32.0) pg RDW 16.3 H (11.5-14.5) % Immature Gran # 0.14 H (0.00-0.04) X 10*3/uL Neutrophils # 9.19 H (1.80-7.70) X 10*3/uL Basophils # 0.12 H (0.00-0.10) X 10*3/uL Macrocytosis (manual) 2+ A Target Cells 2+ A PT 17.2 H (9.9-11.9) sec INR 1.65 H (0.93-1.11) sec Sodium 130 L (135-145) mmol/L Chloride 93 L (96-109) mmol/L Anion Gap 14.80 H (4.00-12.00) mmol/L Est GFR (CKD-EPI) 54 L (>=60) Calcium 8.4 L (8.7-10.3) mg/dL Total Bilirubin 6.8 H (0.3-1.2) mg/dL AST 118 H (13-35) U/L Alkaline Phosphatase 137 H (41-126) U/L NT-Pro-B Natriuret Pep (0-125) pg/mL Albumin 2.7 L (3.8-4.9) g/dL Globulin 4.7 H (1.6-3.3) g/dL Albumin/Globulin Ratio 0.57 L (1.60-3.17) Ratio Fluid Appearance (Clear) 03/31/24 03/31/24 Range/Units 07:46 11:09 WBC (4.50-10.00) X 10*3/uL RBC (4.10-5.20) X 10*6/uL Hgb (12.0-15.0) g/dL Hct (37.2-46.3) % MCV (80.0-97.0) FL MCH (27.0-32.0) pg RDW (11.5-14.5) % Immature Gran # (0.00-0.04) X 10*3/uL Neutrophils # (1.80-7.70) X 10*3/uL Basophils # (0.00-0.10) X 10*3/uL Macrocytosis (manual) Target Cells PT (9.9-11.9) sec INR (0.93-1.11) sec Sodium (135-145) mmol/L Chloride (96-109) mmol/L Anion Gap (4.00-12.00) mmol/L Est GFR (CKD-EPI) (>=60) Calcium (8.7-10.3) mg/dL Total Bilirubin (0.3-1.2) mg/dL AST (13-35) U/L Alkaline Phosphatase (41-126) U/L NT-Pro-B Natriuret Pep 401 H (0-125) pg/mL Albumin (3.8-4.9) g/dL Globulin (1.6-3.3) g/dL Albumin/Globulin Ratio (1.60-3.17) Ratio Fluid Appearance Slightly Hazy A (Clear) Microbiology - Last 24 Hours (Table) 03/29/24 23:45 Blood Culture - Preliminary Blood 03/29/24 23:30 Blood Culture - Preliminary Blood 03/31/24 11:09 Gram Stain - Preliminary Ascites Fluid Assessment and Plan (1) Cirrhosis Narrative/Plan: 68-year-old female with alcohol abuse over the last 10 years duration admitting to at least 3 liquor drinks daily presenting with weakness, fatigue, decreased appetite and abdominal distention. CT abdomen pelvis showing ascites and nodular liver consistent with cirrhosis including portal hypertension. Patient with decompensated cirrhosis of the liver now with ascites secondary to alcohol abuse. Labs are consistent with alcohol cirrhosis of the liver. Will plan for paracentesis, hepatitis panel. Discussed with patient and at the bedside importance of alcohol abstinence. Recommend low-sodium diet. continue diuretics, follow up with gastroenterology. Current Visit: Yes Status: Acute Code(s): K74.60 - UNSPECIFIED CIRRHOSIS OF LIVER SNOMED Code(s): 78375328 (2) Alcohol abuse Current Visit: Yes Status: Acute Code(s): F10.10 - ALCOHOL ABUSE, UNCOMPLICATED SNOMED Code(s): 04013991 (3) Ascites Narrative/Plan: 7 L removed by paracentesis. Transfuse albumin 50 g Current Visit: Yes Status: Acute Code(s): R18.8 - OTHER ASCITES SNOMED Code(s): 956347787 (4) Jaundice Current Visit: Yes Status: Acute Code(s): R17 - UNSPECIFIED JAUNDICE SNOMED Code(s): 81304328 (5) Hyponatremia Current Visit: Yes Status: Acute Code(s): E87.1 - HYPO-OSMOLALITY AND HYPONATREMIA SNOMED Code(s): 08059572 Plan: 1. Continue symptomatic and supportive care 2. Daily CBC, CMP, INR 3. Consult to interventional radiology for paracentesis and fluid studies 4. Hepatitis panel ordered and reviewed 5. Recommend low-sodium diet 6. Fluid restriction 1500 mL daily 7. Continue Lasix 20 mg daily, spironolactone 50 mg daily 8. Discussed with patient and patient's importance of alcohol abstinence 9. Patient will need to follow-up with gastroenterology in outpatient setting Thank you for allowing us to participate in the care of the patient, the GI service will sign off, gastroenterology will not be available at the hospital this weekend and through next week. If further evaluation by gastroenterology is required the patient will need transfer as per the primary team's discretion. Dr. Osman Moss I agree with the dictator's note, documented as a scribe by Tonia Torre.
--- NOTE | 2024-04-01 14:15 | P.PN ---
Subjective Progress Note Date: 04/01/24 CHIEF COMPLAINT: abdominal ascites HISTORY OF PRESENT ILLNESS: patient is status post paracentesis with 7.5 L removed. Patient did have some cramping of the abdomen last night. Denies any nausea vomiting. Tolerated a small amount of breakfast.afebrile. WBC 11.18 PHYSICAL EXAM: VITAL SIGNS: Reviewed. GENERAL: no acute distress. HEENT: scleral icterus ABDOMEN: Soft. mildly distended. Nontender. skin: Jaundiced ASSESSMENT: 1. Abdominal distention due to abdominal ascites from liver cirrhosis 2. Elevated lipase level. No evidence of gallstones on CAT scan. No abdominal tenderness on exam 3. History of alcoholic liver cirrhosis PLAN: -No surgical intervention planned -Patient to follow-up with GI service -Educated patient on alcohol abstinence -Continue regular diet Physician Podiatry Teacher note has been reviewed by physician. Signing provider agrees with the documented findings, assessment, and plan of care. Objective - Vital Signs Vital signs: Vital Signs Temp 98.2 F 04/01/24 13:56 Pulse 91 04/01/24 13:56 Resp 16 04/01/24 13:56 BP 99/54 04/01/24 13:56 Pulse Ox 95 04/01/24 06:55 FiO2 Intake & Output 03/31/24 04/01/24 04/01/24 18:59 06:59 18:59 Intake Total 350 Balance 350 Weight 74.843 kg Intake: Oral 350 Other: Voiding Method Toilet # Voids 1 2 - Labs CBC & Chem 7: 04/01/24 05:55 04/01/24 05:55 Labs: Abnormal Lab Results - Last 24 Hours (Table) 03/31/24 04/01/24 04/01/24 Range/Units 11:09 05:55 05:55 WBC 11.18 H (4.50-10.00) X 10*3/uL RBC 2.88 L (4.10-5.20) X 10*6/uL Hgb 11.3 L (12.0-15.0) g/dL Hct 30.9 L (37.2-46.3) % MCV 107.3 H (80.0-97.0) FL MCH 39.2 H (27.0-32.0) pg RDW 16.1 H (11.5-14.5) % Sodium 133 L (135-145) mmol/L Anion Gap 14.20 H (4.00-12.00) mmol/L Calcium 8.0 L (8.7-10.3) mg/dL Total Bilirubin 7.3 H (0.3-1.2) mg/dL AST 102 H (13-35) U/L Albumin 3.1 L (3.8-4.9) g/dL Globulin 3.8 H (1.6-3.3) g/dL Albumin/Globulin Ratio 0.82 L (1.60-3.17) Ratio Fluid Appearance Slightly Hazy A (Clear) Microbiology - Last 24 Hours (Table) 03/29/24 23:45 Blood Culture - Preliminary Blood 03/29/24 23:30 Blood Culture - Preliminary Blood 03/31/24 11:09 Gram Stain - Preliminary Ascites Fluid
--- NOTE | 2024-04-01 14:44 | P.PN ---
Subjective Progress Note Date: 04/01/24 Principal diagnosis: Acute liver failure with History of alcoholic liver cirrhosis Alcohol abuse Abnormal EKG Lactic acidosis Abdominal distention due to abdominal ascites from liver cirrhosis Elevated lipase level. No evidence of gallstones on CAT scan. No abdominal tenderness on exam electrolyte imbalance with hyponatremia 04/01/2024, patient seen eval examined during rounds labs reviewed medications reviewed, patient has some abdominal distention but feeling better after large volume paracentesis over 7 L of fluid has been removed by IR.she is afebrile blood pressure soft 99/54 map is 69, room air oxygen saturation is 95%. Blood cultures 2 no growth so far., acetic fluid Gram stain negative no WBC seen. Fluid is hazy with albumin is 1.06 other labs reviewed white cell count 11.18 hemoglobin and hematocrit 08/13 platelet count of 150 sodium 1:30 position 3.8 BUN creatinine is 01/10 AST/ALT 102/31 down from 118/37 alk phos is 111 down from 137 review of the data revealed that patient is a 68-year-old female who presented to the emergency department for increased weakness, decreased appetite and abdominal distention. Patient has history of alcohol abuse and was drinking quite heavily. She admitted to drinking 3 back on squirts daily for at least 10 years. States she has not been drinking at all for the last 2 weeks duration. She had abdominal CT that reports cirrhosis of the liver, portal hypertension with moderate to severe ascites. She denies any previous history of liver disease, no history of hepatitis, no previous history of ascites. States that her abdomen has been distended for last 2 weeks duration with some discomfort. at the bedside states that he has not really noticed that she was jaundice but states that she has been sleeping quite a bit and had decreased appetite not eating or drinking much. Patient with elevated liver enzymes. She denies any abdominal pain at this time, no nausea or vomiting, no fevers or chil ls. Objective - Vital Signs Vital signs: Vital Signs Temp 98.2 F 04/01/24 13:56 Pulse 91 04/01/24 13:56 Resp 16 04/01/24 13:56 BP 99/54 04/01/24 13:56 Pulse Ox 95 04/01/24 06:55 FiO2 Intake & Output 03/31/24 04/01/24 04/01/24 18:59 06:59 18:59 Intake Total 350 Balance 350 Weight 74.843 kg Intake: Oral 350 Other: Voiding Method Toilet # Voids 1 2 - Constitutional General appearance: Present: average body habitus, cooperative, disheveled - EENT Eyes: Present: EOMI, PERRLA, scleral icterus ENT: Present: normal oropharynx Ears: bilateral: normal - Neck Neck: Present: normal ROM Carotids: bilateral: upstroke normal - Respiratory Respiratory: bilateral: diminished - Cardiovascular Rhythm: regular Heart sounds: normal: S1, S2 - Gastrointestinal General gastrointestinal: Present: distended, normal bowel sounds, soft - Neurologic Neurologic: Present: CNII-XII intact - Musculoskeletal Musculoskeletal: Present: gait normal, generalized weakness, strength equal bilaterally - Psychiatric Psychiatric: Present: A&O x's 3, appropriate affect, intact judgment & insight - Labs CBC & Chem 7: 04/01/24 05:55 04/01/24 05:55 Labs: Abnormal Lab Results - Last 24 Hours (Table) 03/31/24 04/01/24 04/01/24 Range/Units 11:09 05:55 05:55 WBC 11.18 H (4.50-10.00) X 10*3/uL RBC 2.88 L (4.10-5.20) X 10*6/uL Hgb 11.3 L (12.0-15.0) g/dL Hct 30.9 L (37.2-46.3) % MCV 107.3 H (80.0-97.0) FL MCH 39.2 H (27.0-32.0) pg RDW 16.1 H (11.5-14.5) % Sodium 133 L (135-145) mmol/L Anion Gap 14.20 H (4.00-12.00) mmol/L Calcium 8.0 L (8.7-10.3) mg/dL Total Bilirubin 7.3 H (0.3-1.2) mg/dL AST 102 H (13-35) U/L Albumin 3.1 L (3.8-4.9) g/dL Globulin 3.8 H (1.6-3.3) g/dL Albumin/Globulin Ratio 0.82 L (1.60-3.17) Ratio Fluid Appearance Slightly Hazy A (Clear) Microbiology - Last 24 Hours (Table) 03/29/24 23:45 Blood Culture - Preliminary Blood 03/29/24 23:30 Blood Culture - Preliminary Blood 03/31/24 11:09 Gram Stain - Preliminary Ascites Fluid Assessment and Plan Assessment: hypotension due to liver failure, monitor observe mean arterial pressure is adequate , observe closely Acute liver failure with History of alcoholic liver cirrhosis Alcohol abuse Abnormal EKG Lactic acidosis Abdominal distention due to abdominal ascites from liver cirrhosis Elevated lipase level. No evidence of gallstones on CAT scan. No abdominal tenderness on exam electrolyte imbalance with hyponatremia, Likely hypervolemic Plan: follow-up paracentesis result and hepatitis panel reviewed test results as they're available with the patient and family, continued low sodium diet, monitor observe electrolytes as well as blood pressure closely continue gentle diuresis with Lasix and Aldactone Antinausea medicine with Zofran Pain control with [place] as needed Time with Patient: Greater than 30
--- NOTE | 2024-04-02 15:16 | P.PN ---
Subjective Progress Note Date: 04/02/24 Principal diagnosis: Acute liver failure with History of alcoholic liver cirrhosis Alcohol abuse Abnormal EKG Lactic acidosis Abdominal distention due to abdominal ascites from liver cirrhosis Elevated lipase level. No evidence of gallstones on CAT scan. No abdominal tenderness on exam electrolyte imbalance with hyponatremia 04/02/2024, patient seen and evaluated examined the rounds labs reviewed medications Discussed, Overall Patient Breathing Comfortably, Denies Any Chest Pain, Intermittent Abdominal Pain and Discomfort Hours Present, Dry Dressing Is Present for the Paracentesis SiteOkay Has Been Noted, hemodynamic status stable,a sciatic fluid no growth has been seen no organisms seen, blood cultures no growth as well, and labs reviewed white cell count 11.18, hemoglobin remained up to 11.3 platelet count of 150, chemistry reviewed sodium of 133 09/14/1930, BUN/creatinine is 18/1 total bilirubin is 7.3 EST/ALT 102/31 alk phos is an 11, patient is on diuresis with Lasix and Aldactone. Patient has been complaining of hematuria which she says has been there for almost 2 to 4 months, never has been evaluated it is painless, urine analysis however showed only a few RBCs, family requesting to be evaluated with a urologist 04/01/2024, patient seen eval examined during rounds labs reviewed medications reviewed, patient has some abdominal distention but feeling better after large volume paracentesis over 7 L of fluid has been removed by IR.she is afebrile blood pressure soft 99/54 map is 69, room air oxygen saturation is 95%. Blood cultures 2 no growth so far., acetic fluid Gram stain negative no WBC seen. Fluid is hazy with albumin is 1.06 other labs reviewed white cell count 11.18 hemoglobin and hematocrit 08/13 platelet count of 150 sodium 1:30 position 3.8 BUN creatinine is 18/1 AST/ALT 102/31 down from 118/37 alk phos is 111 down from 137 review of the data revealed that patient is a 68-year-old female who presented to the emergency department for increased weakness, decreased appetite and abdominal distention. Patient has history of alcohol abuse and was drinking quite heavily. She admitted to drinking 3 back on squirts daily for at least 10 years. States she has not been drinking at all for the last 2 weeks duration. She had abdominal CT that reports cirrhosis of the liver, portal hypertension with moderate to severe ascites. She denies any previous history of liver disease, no history of hepatitis, no previous history of ascites. States that her abdomen has been distended for last 2 weeks duration with some discomfort. at the bedside states that he has not really noticed that she was jaundice but states that she has been sleeping quite a bit and had decreased appetite not eating or drinking much. Patient with elevated liver enzymes. She denies any abdominal pain at this time, no nausea or vomiting, no fevers or chills. Objective - Vital Signs Vital signs: Vital Signs Temp 97.5 F L 04/02/24 08:00 Pulse 87 04/02/24 08:00 Resp 18 04/02/24 08:00 BP 101/59 04/02/24 08:00 Pulse Ox 100 04/02/24 08:00 FiO2 Intake & Output 04/01/24 04/02/24 04/02/24 18:59 06:59 18:59 Intake Total 10 Balance 10 Intake: IV 10 Invasive Line 1 10 Other: Voiding Method Toilet # Voids 2 - Exam - Constitutional General appearance: Present: average body habitus, cooperative, disheveled - EENT Eyes: Present: EOMI, PERRLA, scleral icterus ENT: Present: normal oropharynx Ears: bilateral: normal - Neck Neck: Present: normal ROM Carotids: bilateral: upstroke normal - Respiratory Respiratory: bilateral: diminished - Cardiovascular Rhythm: regular Heart sounds: normal: S1, S2 - Gastrointestinal General gastrointestinal: Present: distended, normal bowel sounds, soft - Neurologic Neurologic: Present: CNII-XII intact - Musculoskeletal Musculoskeletal: Present: gait normal, generalized weakness, strength equal bilaterally - Psychiatric Psychiatric: Present: A&O x's 3, appropriate affect, intact judgment & insight - Labs CBC & Chem 7: 04/01/24 05:55 04/01/24 05:55 Labs: Microbiology - Last 24 Hours (Table) 03/29/24 23:45 Blood Culture - Preliminary Blood 03/29/24 23:30 Blood Culture - Preliminary Blood 03/31/24 11:09 Gram Stain - Preliminary Ascites Fluid Body Fluid Culture - Preliminary Assessment and Plan Assessment: hematuria reported by the family has been present for almost 2 months hypotension due to liver failure, monitor observe mean arterial pressure is adequate , observe closely Acute liver failure with History of alcoholic liver cirrhosis Alcohol abuse Abnormal EKG Lactic acidosis Abdominal distention due to abdominal ascites from liver cirrhosis Elevated lipase level. No evidence of gallstones on CAT scan. No abdominal tenderness on exam electrolyte imbalance with hyponatremia, Likely hypervolemic Plan: urology consultation follow-up paracentesis result and hepatitis panel reviewed test results as they're available with the patient and family, continued low sodium diet, monitor observe electrolytes as well as blood pressure closely continue gentle diuresis with Lasix and Aldactone Antinausea medicine with Zofran Pain control with [place] as needed Time with Patient: Greater than 30
--- NOTE | 2024-04-02 16:29 | P.PN ---
Progress Note - Text Progress Note Date: 04/02/24 CHIEF COMPLAINT: abdominal ascites HISTORY OF PRESENT ILLNESS: patient is status post paracentesis. NAEO PHYSICAL EXAM: VITAL SIGNS: Reviewed. GENERAL: no acute distress. HEENT: scleral icterus ABDOMEN: Soft. mildly distended. Nontender. skin: Jaundiced ASSESSMENT: 1. Abdominal distention due to abdominal ascites from liver cirrhosis 2. Elevated lipase level. No evidence of gallstones on CAT scan. No abdominal tenderness on exam 3. History of alcoholic liver cirrhosis PLAN: -No surgical intervention planned -Patient to follow-up with GI service -Educated patient on alcohol abstinence -Continue regular diet
--- NOTE | 2024-04-03 09:26 | P.GSCN ---
History of Present Illness Consult date: 04/03/24 Reason for Consult: Hematuria Requesting physician: Erasmo Castle History of present illness: The patient is a 68-year-old white female admitted with weakness, diminished appetite, and abdominal distention. She has been diagnosed with alcoholic cirrhosis with ascites. She underwent paracentesis on March 31, 2024. She rep orts a several month history of gross painless hematuria. Specifically, she states that she occasionally sees blood when she wipes, and states that it is not bright red. She is somewhat vague regarding this. She denies dysuria and flank pain. Urinalysis obtained at the time of admission showed trace microhematuria. I reviewed the patient's CT scan, which shows no abnormalities. She denies any prior history of UTIs or urolithiasis. Review of Systems - Constitutional Reports weakness - Gastrointestinal Reports loss of appetite - Genitourinary Genitourinary: Reports as per HPI Past Medical History Past Medical History: No Reported History Additional Past Medical History / Comment(s): patient reported hx of heart murmur History of Any Multi-Drug Resistant Organisms: None Reported Past Surgical History: No Surgical Hx Reported Past Anesthesia/Blood Transfusion Reactions: No Reported Reaction Past Psychological History: No Psychological Hx Reported Smoking Status: Never smoker Past Alcohol Use History: Daily Past Drug Use History: None Reported Medications and Allergies Home Medications Medication Instructions Recorded Confirmed Type No Known Home Medications 03/30/24 03/30/24 History Allergies Allergy/AdvReac Type Severity Reaction Status Date / Time azithromycin AdvReac Abdominal Verified 03/30/24 07:52 Pain Surgical - Exam Vital Signs Temp Pulse Resp BP Pulse Ox 97.9 F 114 H 18 118/72 94 L 03/29/24 20:41 03/29/24 20:41 03/29/24 20:41 03/29/24 20:41 03/29/24 20:41 - General well developed, well nourished, no distress - Respiratory normal respiratory effort - Abdomen Soft but mildly distended, non-tender, no mass. - Psychiatric oriented to time, oriented to person, oriented to place, speech is normal, memory intact Results - Labs 04/01/24 05:55 04/01/24 05:55 Microbiology - Last 24 Hours (Table) 03/31/24 11:09 Anaerobic Culture - Preliminary Ascites Fluid 03/31/24 11:09 Gram Stain - Preliminary Ascites Fluid Body Fluid Culture - Preliminary 03/29/24 23:45 Blood Culture - Preliminary Blood 03/29/24 23:30 Blood Culture - Preliminary Blood - Imaging CT scan - abdomen: report reviewed, image reviewed Assessment and Plan (1) Gross hematuria Current Visit: Yes Status: Acute Code(s): R31.0 - GROSS HEMATURIA SNOMED Code(s): 150030140 Plan: I discussed the differential diagnosis of gross hematuria with Mrs. Esqueda in detail. I explained to her that the CT scan showed no abnormalities, but that CT scan of the bladder is unreliable. In view of this, arrangements will be made for her to undergo outpatient cystoscopy to rule out intravesical pathology, specifically malignancy. Please notify me if I can be of any further assistance. Time with Patient: Greater than 30
--- NOTE | 2024-04-03 10:20 | P.PN ---
Subjective Progress Note Date: 04/03/24 Patient gita stable. On exam her vital signs appear stable. Abdomen is soft there is minimal tenderness throughout. There is evidence of ascites. No surgical manage plan. Patient has portal venous hypertension with ascites. She will be medically managed. Objective - Vital Signs Vital signs: Vital Signs Temp 97.7 F 04/03/24 07:21 Pulse 85 04/03/24 07:21 Resp 18 04/03/24 07:21 BP 100/55 04/03/24 07:21 Pulse Ox 95 04/03/24 07:21 FiO2 Intake & Output 04/02/24 04/03/24 04/03/24 18:59 06:59 18:59 Intake Total 240 Balance 240 Intake: Oral 240 Other: Voiding Method Toilet # Voids 3 1 - Labs CBC & Chem 7: 04/01/24 05:55 04/01/24 05:55 Labs: Microbiology - Last 24 Hours (Table) 03/31/24 11:09 Anaerobic Culture - Preliminary Ascites Fluid 03/31/24 11:09 Gram Stain - Preliminary Ascites Fluid Body Fluid Culture - Preliminary
--- NOTE | 2024-04-03 11:33 | P.PN ---
Subjective Progress Note Date: 04/03/24 Principal diagnosis: Acute liver failure with History of alcoholic liver cirrhosis Alcohol abuse Abnormal EKG Lactic acidosis Abdominal distention due to abdominal ascites from liver cirrhosis Elevated lipase level. No evidence of gallstones on CAT scan. No abdominal tenderness on exam electrolyte imbalance with hyponatremia 04/03/2024, patient seen and evaluated examined the rounds labs reviewed medications reviewed, patient blood pressure is much improved now, on the other hand patient is still have immature urology has evaluated the patientreviewed culture reports of the ascites fluid no growth seen 04/02/2024, patient seen and evaluated examined the rounds labs reviewed medications Discussed, Overall Patient Breathing Comfortably, Denies Any Chest Pain, Intermittent Abdominal Pain and Discomfort Hours Present, Dry Dressing Is Present for the Paracentesis SiteOkay Has Been Noted, hemodynamic status stable,a sciatic fluid no growth has been seen no organisms seen, blood cultures no growth as well, and labs reviewed white cell count 11.18, hemoglobin remained up to 11.330 platelet count of 150, chemistry reviewed sodium of 133 09/14/1930, BUN/creatinine is 18/1 total bilirubin is 7.3 EST/ALT 102/31 alk phos is an 11, patient is on diuresis with Lasix and Aldactone. Patient has been complaining of hematuria which she says has been there for almost 2 to 4 months, never has been evaluated it is painless, urine analysis however showed only a few RBCs, family requesting to be evaluated with a urologist 04/01/2024, patient seen eval examined during rounds labs reviewed medications reviewed, patient has some abdominal distention but feeling better after large volume paracentesis over 7 L of fluid has been removed by IR.she is afebrile blood pressure soft 99/54 map is 69, room air oxygen saturation is 95%. Blood cultures 2 no growth so far., acetic fluid Gram stain negative no WBC seen. Fluid is hazy with albumin is 1.06 other labs reviewed white cell count 11.18 hemoglobin and hematocrit 08/13 platelet count of 150 sodium 1:30 position 3.8 B UN creatinine is 18/1 AST/ALT 102/31 down from 118/37 alk phos is 111 down from 137 review of the data revealed that patient is a 68-year-old female who presented to the emergency department for increased weakness, decreased appetite and abdominal distention. Patient has history of alcohol abuse and was drinking quite heavily. She admitted to drinking 3 back on squirts daily for at least 10 years. States she has not been drinking at all for the last 2 weeks duration. She had abdominal CT that reports cirrhosis of the liver, portal hypertension with moderate to severe ascites. She denies any previous history of liver disease, no history of hepatitis, no previous history of ascites. States that her abdomen has been distended for last 2 weeks duration with some discomfort. at the bedside states that he has not really noticed that she was jaundice but states that she has been sleeping quite a bit and had decreased appetite not eating or drinking much. Patient with elevated liver enzymes. She denies any abdominal pain at this time, no nausea or vomiting, no fevers or chi lls. Objective - Vital Signs Vital signs: Vital Signs Temp 97.7 F 04/03/24 07:21 Pulse 85 04/03/24 07:21 Resp 18 04/03/24 07:21 BP 100/55 04/03/24 07:21 Pulse Ox 95 04/03/24 07:21 FiO2 Intake & Output 04/02/24 04/03/24 04/03/24 18:59 06:59 18:59 Intake Total 240 Balance 240 Intake: Oral 240 Other: Voiding Method Toilet # Voids 3 1 - Exam - Constitutional General appearance: Present: average body habitus, cooperative, disheveled - EENT Eyes: Present: EOMI, PERRLA, scleral icterus ENT: Present: normal oropharynx Ears: bilateral: normal - Neck Neck: Present: normal ROM Carotids: bilateral: upstroke normal - Respiratory Respiratory: bilateral: diminished - Cardiovascular Rhythm: regular Heart sounds: normal: S1, S2 - Gastrointestinal General gastrointestinal: Present: distended, normal bowel sounds, soft - Neurologic Neurologic: Present: CNII-XII intact - Musculoskeletal Musculoskeletal: Present: gait normal, generalized weakness, strength equal bilaterally - Psychiatric Psychiatric: Present: A&O x's 3, appropriate affect, intact judgment & insight - Labs CBC & Chem 7: 04/01/24 05:55 04/01/24 05:55 Labs: Microbiology - Last 24 Hours (Table) 03/31/24 11:09 Anaerobic Culture - Preliminary Ascites Fluid 03/31/24 11:09 Gram Stain - Preliminary Ascites Fluid Body Fluid Culture - Preliminary Assessment and Plan Assessment: hematuria reported by the family has been present for almost 2 months hypotension due to liver failure, monitor observe mean arterial pressure is adequate , observe closely Acute liver failure with History of alcoholic liver cirrhosis Alcohol abuse Abnormal EKG Lactic acidosis Abdominal distention due to abdominal ascites from liver cirrhosis Elevated lipase level. No evidence of gallstones on CAT scan. No abdominal tenderness on exam electrolyte imbalance with hyponatremia, Likely hypervolemic Plan: urology consultation follow-up paracentesis result and hepatitis panel reviewed test results as they're available with the patient and family, continued low sodium diet, monitor observe electrolytes as well as blood pressure closely continue gentle diuresis with Lasix and Aldactone Antinausea medicine with Zofran Pain control with [place] as needed Time with Patient: Greater than 30
--- NOTE | 2024-04-04 12:10 | P.PN ---
Subjective Progress Note Date: 04/04/24 CHIEF COMPLAINT: abdominal ascites HISTORY OF PRESENT ILLNESS: patient is status post paracentesis with 7.5 L removed. Patient does report some crampy abdominal pain. But overall feeling better. She does report that her abdomen might feel little bit more distended again. Denies any nausea or vomiting. Decreased appetite. Afebrile PHYSICAL EXAM: VITAL SIGNS: Reviewed. GENERAL: no acute distress. HEENT: scleral icterus ABDOMEN: Soft. mildly distended. Nontender. skin: Jaundiced ASSESSMENT: 1. Abdominal distention due to abdominal ascites from liver cirrhosis 2. Elevated lipase level. No evidence of gallstones on CAT scan. No abdominal tenderness on exam 3. History of alcoholic liver cirrhosis 4. Portal venous hypertension with ascites PLAN: -No surgical intervention planned -Recommend medical management -Patient to follow-up with GI service outpatient -Ensure added for protein supplement Physician Floor Coverings Installer note has been reviewed by physician. Signing provider agrees with the documented findings, assessment, and plan of care. Objective - Vital Signs Vital signs: Vital Signs Temp 98.1 F 04/04/24 07:45 Pulse 86 04/04/24 07:45 Resp 16 04/04/24 07:45 BP 101/50 04/04/24 07:45 Pulse Ox 96 04/04/24 07:45 FiO2 Intake & Output 04/03/24 04/04/24 04/04/24 18:59 06:59 18:59 Intake Total 960 240 Balance 960 240 Intake: Oral 960 240 Other: Voiding Method Toilet # Voids 2 1 - Labs CBC & Chem 7: 04/01/24 05:55 04/01/24 05:55 Labs: Microbiology - Last 24 Hours (Table) 03/29/24 23:45 Blood Culture - Final Blood 03/29/24 23:30 Blood Culture - Final Blood 03/31/24 11:09 Gram Stain - Preliminary Ascites Fluid Body Fluid Culture - Preliminary
--- NOTE | 2024-04-04 12:36 | P.PN ---
Subjective Progress Note Date: 04/04/24 Principal diagnosis: Acute liver failure with History of alcoholic liver cirrhosis Alcohol abuse Abnormal EKG Lactic acidosis Abdominal distention due to abdominal ascites from liver cirrhosis Elevated lipase level. No evidence of gallstones on CAT scan. No abdominal tenderness on exam electrolyte imbalance with hyponatremia 04/04/2024, patient seen eval examined during the rounds labs reviewed medications reviewed care plan discussed, patient is been diuresis, patient has been composed, cultures no growthmultiple repeat labs and LFTs continue monitor abdominal exam is stable possible discharge in next 24-48 hours, for hematuria patient will get outpatient cystoscopy 04/03/2024, patient seen and evaluated examined the rounds labs reviewed medications reviewed, patient blood pressure is much improved now, on the other hand patient is still have immature urology has evaluated the patientreviewed culture reports of the ascites fluid no growth seen 04/02/2024, patient seen and evaluated examined the rounds labs reviewed medications Discussed, Overall Patient Breathing Comfortably, Denies Any Chest Pain, Intermittent Abdominal Pain and Discomfort Hours Present, Dry Dressing Is Present for the Paracentesis SiteOkay Has Been Noted, hemodynamic status stable,a sciatic fluid no growth has been seen no organisms seen, blood cultures no growth as well, and labs reviewed white cell count 11.18, hemoglobin remained up to 11.12/11 platelet count of 150, chemistry reviewed sodium of 133 09/14/1930, BUN/creatinine is 18/1 total bilirubin is 7.3 EST/ALT 102/31 alk shamika s is an 11, patient is on diuresis with Lasix and Aldactone. Patient has been complaining of hematuria which she says has been there for almost 2 to 4 months, never has been evaluated it is painless, urine analysis however showed only a few RBCs, family requesting to be evaluated with a urologist 04/01/2024, patient seen eval examined during rounds labs reviewed medications reviewed, patient has some abdominal distention but feeling better after large volume paracentesis over 7 L of fluid has been removed by IR.she is afebrile blood pressure soft 99/54 map is 69, room air oxygen saturation is 95%. Blood cultures 2 no growth so far., acetic fluid Gram stain negative no WBC seen. Fluid is hazy with albumin is 1.06 other labs reviewed white cell count 11.18 hemoglobin and hematocrit 08/13 platelet count of 150 sodium 1:30 position 3.8 BUN creatinine is 18/1 AST/ALT 102/31 down from 118/37 alk phos is 111 down from 137 review of the data revealed that patient is a 68-year-old female who presented to the emergency department for increased weakness, decreased appetite and abdominal distention. Patient has history of alcohol abuse and was drinking quite heavily. She admitted to drinking 3 back on squirts daily for at least 10 years. States she has not been drinking at all for the last 2 weeks duration. She had abdominal CT that reports cirrhosis of the liver, portal hypertension with moderate to severe ascites. She denies any previous history of liver disease, no history of hepatitis, no previous history of ascites. States that her abdomen has been distended for last 2 weeks duration with some discomfort. at the bedside states that he has not really noticed that she was jaundice but states that she has been sleeping quite a bit and had decreased appetite not eating or drinking much. Patient with elevated liver enzymes. She denies any abdominal pain at this time, no nausea or vomiting, no fevers or chills. Objective - Vital Signs Vital signs: Vital Signs Temp 98.1 F 04/04/24 07:45 Pulse 86 04/04/24 07:45 Resp 16 04/04/24 07:45 BP 101/50 04/04/24 07:45 Pulse Ox 96 04/04/24 07:45 FiO2 Intake & Output 04/03/24 04/04/24 04/04/24 18:59 06:59 18:59 Intake Total 960 240 Balance 960 240 Intake: Oral 960 240 Other: Voiding Method Toilet # Voids 2 1 - Exam - Constitutional General appearance: Present: average body habitus, cooperative, disheveled - EENT Eyes: Present: EOMI, PERRLA, scleral icterus ENT: Present: normal oropharynx Ears: bilateral: normal - Neck Neck: Present: normal ROM Carotids: bilateral: upstroke normal - Respiratory Respiratory: bilateral: diminished - Cardiovascular Rhythm: regular Heart sounds: normal: S1, S2 - Gastrointestinal General gastrointestinal: Present: distended, normal bowel sounds, soft - Neurologic Neurologic: Present: CNII-XII intact - Musculoskeletal Musculoskeletal: Present: gait normal, generalized weakness, strength equal bilaterally - Psychiatric Psychiatric: Present: A&O x's 3, appropriate affect, intact judgment & insight - Labs CBC & Chem 7: 04/01/24 05:55 04/01/24 05:55 Labs: Microbiology - Last 24 Hours (Table) 03/29/24 23:45 Blood Culture - Final Blood 03/29/24 23:30 Blood Culture - Final Blood 03/31/24 11:09 Gram Stain - Preliminary Ascites Fluid Body Fluid Culture - Preliminary Assessment and Plan Assessment: hematuria reported by the family has been present for almost 2 months, urology evaluated the patient and recommended outpatient cystoscopy hypotension due to liver failure, monitor observe mean arterial pressure is adequate , observe closely Acute liver failure with History of alcoholic liver cirrhosis Alcohol abuse Abnormal EKG Lactic acidosis Abdominal distention due to abdominal ascites from liver cirrhosis Elevated lipase level. No evidence of gallstones on CAT scan. No abdominal tenderness on exam electrolyte imbalance with hyponatremia, Likely hypervolemic Plan: urology consultation follow-up paracentesis result and hepatitis panel reviewed test results as they're available with the patient and family, continued low sodium diet, monitor observe electrolytes as well as blood pressure closely continue gentle diuresis with Lasix and Aldactone Antinausea medicine with Zofran Pain control with [place] as needed Time with Patient: Greater than 30
[2024-04-05 08:30] LABS: Basophils # (A) 0.11 X 10*3/uL (0.00-0.10); Basophils % (A) 0.7 %; Eosinophils % (A) 1.3 %; HCT 33.1 % (37.2-46.3); HGB 12.2 g/dL (12.0-15.0); Lymphocytes # (A) 2.08 X 10*3/uL (0.90-5.00); Lymphocytes % (A) 13.9 %; MCH 39.1 pg (27.0-32.0); MCHC 36.9 g/dL (32.0-37.0); MCV 106.1 FL (80.0-97.0); Mean Platelet Volume 10.5 FL (9.5-12.2); Monocytes # (A) 0.99 X 10*3/uL (0.20-1.00); Monocytes % (A) 6.6 %; NRBC Per 100 WBC 0 X 10*3/uL (0.00-0.01); Neutrophils % (A) 76.2 %; Platelet Count 155 X 10*3/uL (140-440); RBC 3.12 X 10*6/uL (4.10-5.20); RDW 15.9 % (11.5-14.5); WBC 14.97 X 10*3/uL (4.50-10.00)
[2024-04-05 08:54] LABS: ALT 48 U/L (8-44); AST 127 U/L (13-35); Albumin 2.8 g/dL (3.8-4.9); Albumin/Globulin Ratio 0.64 Ratio (1.60-3.17); Alkaline Phosphatase 121 U/L (41-126); Blood Urea Nitrogen 21.3 mg/dL (9.0-27.0); Calcium 8.4 mg/dL (8.7-10.3); Carbon Dioxide 22.4 mmol/L (21.6-31.8); Chloride 94 mmol/L (96-109); Globulin 4.4 g/dL (1.6-3.3); Glucose 113 mg/dL (70-110); Potassium 3.8 mmol/L (3.5-5.5); Sodium 130 mmol/L (135-145); Total Protein 7.2 g/dL (6.2-8.2)
--- NOTE | 2024-04-05 10:33 | P.PN ---
Subjective Progress Note Date: 04/05/24 CHIEF COMPLAINT: abdominal ascites HISTORY OF PRESENT ILLNESS: Patient is a bed comfortably. She has known complaints. She tolerated diet. WBC 14.97 total bilirubin 9 AST 127 PHYSICAL EXAM: VITAL SIGNS: Reviewed. GENERAL: no acute distress. HEENT: scleral icterus ABDOMEN: Soft. mildly distended. Nontender. skin: Jaundiced ASSESSMENT: 1. Abdominal distention due to abdominal ascites from liver cirrhosis 2. Elevated lipase level. No evidence of gallstones on CAT scan. No abdominal tenderness on exam 3. History of alcoholic liver cirrhosis 4. Portal venous hypertension with ascites 5. Severe protein calorie malnutrition PLAN: -No surgical intervention planned -Recommend medical management -Patient to follow-up with GI service outpatient -Continue Ensure protein supplement Physician Dev Manager note has been reviewed by physician. Signing provider agrees with the documented findings, assessment, and plan of care. Objective - Vital Signs Vital signs: Vital Signs Temp 97.8 F 04/05/24 07:15 Pulse 88 04/05/24 07:15 Resp 17 04/05/24 07:15 BP 106/65 04/05/24 07:15 Pulse Ox 96 04/05/24 07:15 FiO2 Intake & Output 04/04/24 04/05/24 04/05/24 18:59 06:59 18:59 Other: Voiding Method Toilet # Voids 4 1 - Labs CBC & Chem 7: 04/05/24 05:14 04/05/24 05:14 Labs: Abnormal Lab Results - Last 24 Hours (Table) 04/05/24 04/05/24 Range/Units 05:14 05:14 WBC 14.97 H (4.50-10.00) X 10*3/uL RBC 3.12 L (4.10-5.20) X 10*6/uL Hct 33.1 L (37.2-46.3) % MCV 106.1 H (80.0-97.0) FL MCH 39.1 H (27.0-32.0) pg RDW 15.9 H (11.5-14.5) % Immature Gran # 0.19 H (0.00-0.04) X 10*3/uL Neutrophils # 11.40 H (1.80-7.70) X 10*3/uL Basophils # 0.11 H (0.00-0.10) X 10*3/uL Sodium 130 L (135-145) mmol/L Chloride 94 L (96-109) mmol/L Anion Gap 13.60 H (4.00-12.00) mmol/L BUN/Creatinine Ratio 21.30 H (12.00-20.00) Ratio Glucose 113 H (70-110) mg/dL Calcium 8.4 L (8.7-10.3) mg/dL Total Bilirubin 9.0 H (0.3-1.2) mg/dL AST 127 H (13-35) U/L ALT 48 H (8-44) U/L Albumin 2.8 L (3.8-4.9) g/dL Globulin 4.4 H (1.6-3.3) g/dL Albumin/Globulin Ratio 0.64 L (1.60-3.17) Ratio Microbiology - Last 24 Hours (Table) 03/31/24 11:09 Anaerobic Culture - Final Ascites Fluid 03/31/24 11:09 Gram Stain - Final Ascites Fluid Body Fluid Culture - Final
--- NOTE | 2024-04-05 20:45 | PN ---
PROGRESS NOTE SUBJECTIVE: She was admitted with cirrhosis of the liver. She is on Protonix, Aldactone, [place], Lasix. Labs have come back with INR 1.65. A set of blood work showed hemoglobin 12.2, white count is 14.97. Last bilirubin is up to 9, which is increased higher than 7.3, albumin is 2.8. Ascitic fluid shows negative white cells, red cells. Ascitic fluid cultures are all negative. Surgery has seen , abdominal distention secondary to abdominal ascites and liver cirrhosis. Elevated lipases. No gallstones. Alcoholic liver cirrhosis, portal venous hypertension with ascites, severe protein malnutrition. Ensure protein drinks. Wait for GI recommendations to continue current treatment. Urology has also seen her for gross hematuria. CAT scan was negative. Outpatient cystoscopy, rule out malignancy. Prognosis guarded. Please see further orders. Hemoglobin is stabilizing. Wait for GI recommendations. MMODL / IJN: [id number] /
[2024-04-06] MEDS: PANTOPRAZOLE 40 MG TABLET PO SCH (09:15)
[2024-04-06 10:38] LABS: Basophils # (A) 0.12 X 10*3/uL (0.00-0.10); Basophils % (A) 0.7 %; Eosinophils # (A) 0.18 X 10*3/uL (0.04-0.35); Eosinophils % (A) 1.1 %; HCT 33.9 % (37.2-46.3); HGB 12.3 g/dL (12.0-15.0); Lymphocytes # (A) 1.92 X 10*3/uL (0.90-5.00); Lymphocytes % (A) 11.4 %; MCH 38.3 pg (27.0-32.0); MCHC 36.3 g/dL (32.0-37.0); MCV 105.6 FL (80.0-97.0); Mean Platelet Volume 10.1 FL (9.5-12.2); Monocytes # (A) 1.32 X 10*3/uL (0.20-1.00); Monocytes % (A) 7.8 %; NRBC Per 100 WBC 0 X 10*3/uL (0.00-0.01); Neutrophils # (A) 13.05 X 10*3/uL (1.80-7.70); Neutrophils % (A) 77.1 %; Platelet Count 156 X 10*3/uL (140-440); RBC 3.21 X 10*6/uL (4.10-5.20); RDW 15.8 % (11.5-14.5); WBC 16.91 X 10*3/uL (4.50-10.00)
[2024-04-06 11:18] LABS: ALT 45 U/L (8-44); AST 122 U/L (13-35); Albumin 2.8 g/dL (3.8-4.9); Albumin/Globulin Ratio 0.62 Ratio (1.60-3.17); Alkaline Phosphatase 121 U/L (41-126); BUN/Creat Ratio 20.36 Ratio (12.00-20.00); Blood Urea Nitrogen 22.4 mg/dL (9.0-27.0); Calcium 8.3 mg/dL (8.7-10.3); Carbon Dioxide 22.8 mmol/L (21.6-31.8); Chloride 92 mmol/L (96-109); Globulin 4.5 g/dL (1.6-3.3); Glucose 110 mg/dL (70-110); Potassium 3.9 mmol/L (3.5-5.5); Sodium 128 mmol/L (135-145); Total Bilirubin 9.5 mg/dL (0.3-1.2); Total Protein 7.3 g/dL (6.2-8.2)
--- NOTE | 2024-04-06 13:30 | PN ---
PROGRESS NOTE 68-year-old white female, was sent home on Protonix 40 mg daily, Aldactone 50 daily, Lasix 20 daily for cirrhosis, elevated bilirubin 9.5 on discharge. Surgery cleared her for discharge. GI is unavailable. The patient wants to go home. Follow up with GI outpatient. Vital signs, she has been stable. She has no signs of confusion or bleeding. OBJECTIVE: VITAL SIGNS: Blood pressure 100/56, temperature 98.1, pulse 61, respiratory rate 16 to 18. CARDIOVASCULAR: S1, S2. LUNGS: Transmitted upper sounds. GI: Soft. HEMATOLOGY: Negative for Homans. PSYCH: Fair mood and affect. Blood cultures, Gram stain of the body fluids negative. Anaerobic cultures negative. Prognosis is guarded. Apparently, GI saw her last week and cleared her for discharge on Thursday. She is safe to go home. White count 16.91, platelets 156, sodium 128, potassium 3.9. Bilirubin is 9.5, elevated. AST is 122, ALT is 45. Ascitic fluid that was drawn off is negative. No signs of infection. As mentioned, Surgery cleared her for discharge. She does not want anything for alcohol withdrawal symptoms or treatment. Cranial nerves are intact. Abdomen is distended, soft. Respiratory is diminished. Heart S1 and S2. ASSESSMENT: Lactic acidosis, abnormal EKG, abdominal distention, elevated lipase, acute liver failure, hypotension, hematuria. Outpatient cystoscopy will be done per Urology. Continue with diuresis, Lasix, Aldactone, possibly sent home on antibiotic due to elevated white count for possible UTI. There are no signs of abdominal infection. As we can see, prognosis guarded. MMODL / IJN: [id number] /
--- NOTE | 2024-04-06 14:00 | P.PN ---
Subjective Progress Note Date: 04/06/24 CHIEF COMPLAINT: abdominal ascites HISTORY OF PRESENT ILLNESS: Patient is lying in bed comfortably. She has no new complaints. She tolerated diet. Patient denies any abdominal pain. afebrile. WBC is up to 16.91. total bili 9.5 AST 122 ALT 45 alk phos 121 PHYSICAL EXAM: VITAL SIGNS: Reviewed. GENERAL: no acute distress. HEENT: scleral icterus ABDOMEN: Soft. mildly distended. Nontender. skin: Jaundiced ASSESSMENT: 1. Abdominal distention due to abdominal ascites from liver cirrhosis 2. Elevated lipase level. No evidence of gallstones on CAT scan. No abdominal tenderness on exam 3. History of alcoholic liver cirrhosis 4. Portal venous hypertension with ascites 5. Severe protein calorie malnutrition PLAN: -No surgical intervention planned -Patient is stable for discharge from surgical standpoint -Recommend follow-up with GI service outpatient in regards to her liver cirrhosi s -Continue Ensure protein supplement Physician Contract Negotiation Specialist note has been reviewed by physician. Signing provider agrees with the documented findings, assessment, and plan of care. Objective - Vital Signs Vital signs: Vital Signs Temp 98.1 F 04/06/24 07:00 Pulse 61 04/06/24 07:00 Resp 17 04/06/24 07:00 BP 100/56 04/06/24 07:00 Pulse Ox 97 04/06/24 07:00 FiO2 Intake & Output 04/05/24 04/06/24 04/06/24 18:59 06:59 18:59 Intake Total 548 240 Balance 548 240 Intake: Oral 548 240 Other: # Voids 2 1 - Labs CBC & Chem 7: 04/06/24 06:51 04/06/24 06:51 Labs: Abnormal Lab Results - Last 24 Hours (Table) 04/06/24 04/06/24 Range/Units 06:51 06:51 WBC 16.91 H (4.50-10.00) X 10*3/uL RBC 3.21 L (4.10-5.20) X 10*6/uL Hct 33.9 L (37.2-46.3) % MCV 105.6 H (80.0-97.0) FL MCH 38.3 H (27.0-32.0) pg RDW 15.8 H (11.5-14.5) % Immature Gran # 0.32 H (0.00-0.04) X 10*3/uL Neutrophils # 13.05 H (1.80-7.70) X 10*3/uL Monocytes # 1.32 H (0.20-1.00) X 10*3/uL Basophils # 0.12 H (0.00-0.10) X 10*3/uL Sodium 128 L (135-145) mmol/L Chloride 92 L (96-109) mmol/L Anion Gap 13.20 H (4.00-12.00) mmol/L Est GFR (CKD-EPI) 54 L (>=60) BUN/Creatinine Ratio 20.36 H (12.00-20.00) Ratio Calcium 8.3 L (8.7-10.3) mg/dL Total Bilirubin 9.5 H (0.3-1.2) mg/dL AST 122 H (13-35) U/L ALT 45 H (8-44) U/L Albumin 2.8 L (3.8-4.9) g/dL Globulin 4.5 H (1.6-3.3) g/dL Albumin/Globulin Ratio 0.62 L (1.60-3.17) Ratio
--- NOTE | 2024-04-06 17:38 | CT ---
EXAMINATION TYPE: CT chest wo con CT DLP: 211.2 mGycm, Automated exposure control for dose reduction was used. DATE OF EXAM: 04/06/2024 5:18 PM COMPARISON: 03/29/2024. CLINICAL INDICATION:Female, 68 years old with history of elevated WBC; PHH, Elevated WBC. TECHNIQUE: Multiple axial images were obtained through the chest. Sagittal and coronal reformats were created for review. Contrast used: mL of (None if empty) Oral contrast used: (None if empty) FINDINGS: LUNGS/ PLEURA: No focal consolidation, pneumothorax or pleural effusion. AIRWAY: Patent and unremarkable. HEART: Size within normal limits.Atherosclerosis of the arterial vasculature. MEDIASTINUM: No gross evidence of adenopathy. VASCULATURE: No aortic aneurysm. MUSCULOSKELETAL: No acute osseous abnormalities right acromion os trigonum suggested. SOFT TISSUES/LYMPH NODES: Unremarkable. LOWER NECK: No significant findings. UPPER ABDOMEN: Nodular contour to liver with abnormal free fluid. IMPRESSION: 1. No acute airspace process to suggest infection. 2. Nodular contour to liver with abdominal ascites criteria for cirrhosis.
[2024-04-06] MEDS: NYSTATIN 100,000 UNIT/ML SUSP 500,000 UNIT/5 ML CUP PO SCH (18:43)
[2024-04-06 20:37] LABS: Appearance,Urine Cloudy (Clear); Bacteria,Urine Rare /hpf; Bilirubin,Urine 2+ (Negative); Blood,Urine Trace (Negative); Color,Urine Dark Brown; Glucose,Urine (UA) Negative (Negative); Hyaline Casts,Urine 19 /lpf (0-2); Ketones,Urine Negative (Negative); Leukocyte Esterase,Urine Trace (Negative); Mucus,Urine Occasional /hpf; Nitrite,Urine Negative (Negative); Protein,Urine Trace (Negative); RBC,Urine 5 /hpf (0-5); Specific Gravity,Urine 1.018 (1.001-1.035); Squamous Epithelial Cell,Urine 11 /hpf (0-4); WBC,Urine 6 /hpf (0-5)
[2024-04-06] MEDS: CIPROFLOXACIN HCL 500 MG TAB PO SCH (21:11)
--- NOTE | 2024-04-07 06:50 | P.CONS ---
History of Present Illness - Reason for Consult Consult date: 04/06/24 Leukocytosis Requesting physician: Dakota Churchill - Chief Complaint Weakness x few days - History of Present Illness Patient is a 68-year-old female with a past medical history significant for alcohol abuse presented to the hospital almost 10 days ago for evaluation of increased weakness and decreased appetite and abdominal distention patient has been diagnosed with cirrhosis of the liver likely related to alcoholism did have abdominal ascites and is s/p paracentesis on 03/31/2024 fluid was slightly hazy white count was only 51 patient did have negative hepatitis serology did have white count of 12,000 admission that has slowly creeped up to 16.91 today prompting this consultation today patient currently denies having any fever or any chills and no fever have been recorded into this hospital stay patient denies having any headache or URI symptoms no chest pain shortness of breath or cough no nausea no vomiting no abdominal pain or diarrhea no urinary symptoms. Patient did have a white count of 16.91 creatinine is 1.1 electrolytes are normal liver enzymes are elevated blood cultures and abdominal fluid culture negative this admission Review of Systems Positive point and negatives has been mentioned in the HPI, complete review of systems was performed and all other systems are negative Past Medical History Past Medical History: No Reported History Additional Past Medical History / Comment(s): patient reported hx of heart murmur History of Any Multi-Drug Resistant Organisms: None Reported Past Surgical History: No Surgical Hx Reported Past Anesthesia/Blood Transfusion Reactions: No Reported Reaction Past Psychological History: No Psychological Hx Reported Smoking Status: Never smoker Past Alcohol Use History: Daily Past Drug Use History: None Reported Medications and Allergies Home Medications Medication Instructions Recorded Confirmed Type Furosemide [Lasix] 20 mg PO DAILY 30 Days #30 tab 04/06/24 Rx Pantoprazole [Protonix] 40 mg PO AC-BRKFST 30 Days #30 tab 04/06/24 Rx Spironolactone [Aldactone] 50 mg PO DAILY 30 Days #30 tab 04/06/24 Rx Allergies Allergy/AdvReac Type Severity Reaction Status Date / Time azithromycin AdvReac Abdominal Verified 03/30/24 07:52 Pain Physical Exam Vitals: Vital Signs Temp Pulse Pulse Resp BP Pulse Ox 04/06/24 13:34 98.3 F 96 16 102/63 94 L 04/06/24 07:00 98.1 F 61 17 100/56 97 04/06/24 01:48 97.8 F 90 18 103/47 94 L 04/05/24 19:42 98.2 F 83 18 101/55 96 Intake and Output 04/06/24 04/06/24 04/06/24 06:59 14:59 22:59 Intake Total 240 180 Balance 240 180 Intake: Oral 240 180 Other: # Voids 1 GENERAL DESCRIPTION: Elderly female lying in bed, no distress. No tachypnea or accessory muscle of respiration use. HEENT: Shows Pallor , no scleral icterus. Oral mucous membrane is dry. No pharyngeal erythema or thrush NECK: Trachea central, no thyromegaly. LUNGS: Unlabored breathing. Clear to auscultation anteriorly. No wheeze or crackle. HEART: S1, S2, regular rate and rhythm. No loud murmur ABDOMEN: Soft, no tenderness , EXTREMITIES: No edema of feet. SKIN: No rash, no masses palpable. NEUROLOGICAL: The patient is awake, alert, oriented x3, mood and affect normal. Results CBC & Chem 7: 04/07/24 05:42 04/07/24 05:42 Labs: Abnormal Lab Results - Last 24 Hours (Table) 04/06/24 04/06/24 04/06/24 Range/Units 06:51 06:51 06:51 WBC 16.91 H (4.50-10.00) X 10*3/uL RBC 3.21 L (4.10-5.20) X 10*6/uL Hct 33.9 L (37.2-46.3) % MCV 105.6 H (80.0-97.0) FL MCH 38.3 H (27.0-32.0) pg RDW 15.8 H (11.5-14.5) % Immature Gran # 0.32 H (0.00-0.04) X 10*3/uL Neutrophils # 13.05 H (1.80-7.70) X 10*3/uL Monocytes # 1.32 H (0.20-1.00) X 10*3/uL Basophils # 0.12 H (0.00-0.10) X 10*3/uL Sodium 128 L (135-145) mmol/L Chloride 92 L (96-109) mmol/L Anion Gap 13.20 H (4.00-12.00) mmol/L Est GFR (CKD-EPI) 54 L (>=60) BUN/Creatinine Ratio 20.36 H (12.00-20.00) Ratio Calcium 8.3 L (8.7-10.3) mg/dL Total Bilirubin 9.5 H 9.2 H (0.3-1.2) mg/dL AST 122 H (13-35) U/L ALT 45 H (8-44) U/L Albumin 2.8 L (3.8-4.9) g/dL Globulin 4.5 H (1.6-3.3) g/dL Albumin/Globulin Ratio 0.62 L (1.60-3.17) Ratio Assessment and Plan (1) Leukocytosis Current Visit: Yes Status: Acute Code(s): D72.829 - ELEVATED WHITE BLOOD CELL COUNT, UNSPECIFIED SNOMED Code(s): 624610176 (2) Oral thrush Current Visit: Yes Status: Acute Code(s): B37.0 - CANDIDAL STOMATITIS SNOMED Code(s): 81421092 Plan: 1patient with elevated white count and this patient presented to hospital with weakness decreased appetite did have a abdominal ascites from cirrhosis of the liver status post paracentesis and those culture has been negative patient did not have any fever during this hospital stay noticed to have mild thrush could be etiology of this elevated white count has no other obvious focus of infection 2-we will obtain inflammatory markers check a UA and culture 3-start the patient on nystatin swish and swallow We will follow on clinical condition and cultures to further adjust medication if needed Thank you for this consultation we will follow the patient along with you Dictation was produced using [employer] dictation software. please excuse any grammatical, word or spelling errors. Time with Patient: Greater than 30
[2024-04-07 08:41] LABS: Basophils # (A) 0.11 X 10*3/uL (0.00-0.10); Basophils % (A) 0.7 %; Eosinophils # (A) 0.16 X 10*3/uL (0.04-0.35); HCT 32.2 % (37.2-46.3); HGB 11.8 g/dL (12.0-15.0); Lymphocytes # (A) 1.86 X 10*3/uL (0.90-5.00); Lymphocytes % (A) 11.1 %; MCH 39.2 pg (27.0-32.0); MCHC 36.6 g/dL (32.0-37.0); Mean Platelet Volume 10.4 FL (9.5-12.2); Monocytes % (A) 7.7 %; NRBC Per 100 WBC 0 X 10*3/uL (0.00-0.01); Neutrophils # (A) 12.92 X 10*3/uL (1.80-7.70); Neutrophils % (A) 76.9 %; Platelet Count 165 X 10*3/uL (140-440); RBC 3.01 X 10*6/uL (4.10-5.20); WBC 16.79 X 10*3/uL (4.50-10.00)
[2024-04-07 10:19] LABS: BUN/Creat Ratio 19.38 Ratio (12.00-20.00); Blood Urea Nitrogen 25.2 mg/dL (9.0-27.0); Carbon Dioxide 21.3 mmol/L (21.6-31.8); Chloride 90 mmol/L (96-109); Glucose 99 mg/dL (70-110); Potassium 4.1 mmol/L (3.5-5.5); Sodium 127 mmol/L (135-145)
[2024-04-07 10:20] LABS: ALT 46 U/L (8-44); AST 120 U/L (13-35); Albumin 2.8 g/dL (3.8-4.9); Albumin/Globulin Ratio 0.62 Ratio (1.60-3.17); Alkaline Phosphatase 119 U/L (41-126); Calcium 8.5 mg/dL (8.7-10.3); Globulin 4.5 g/dL (1.6-3.3); Total Bilirubin 9.3 mg/dL (0.3-1.2); Total Protein 7.3 g/dL (6.2-8.2)
--- NOTE | 2024-04-07 11:09 | P.PN ---
Subjective Progress Note Date: 04/07/24 CHIEF COMPLAINT: abdominal ascites HISTORY OF PRESENT ILLNESS: She has no new complaints. Patient denies any abdominal pain. Tolerating diet. afebrile. WBC 16.79 total bili 9.3 LFTs elevated and remain about the same. Patient seen by infectious disease regarding elevated white count. They started her on medication for oral thrush. PHYSICAL EXAM: VITAL SIGNS: Reviewed. GENERAL: no acute distress. HEENT: scleral icterus ABDOMEN: Soft. mildly distended. Nontender. skin: Jaundiced ASSESSMENT: 1. Abdominal distention due to abdominal ascites from liver cirrhosis status post paracentesis during this admission 2. Elevated lipase level. No evidence of gallstones on CAT scan. No abdominal tenderness on exam 3. History of alcoholic liver cirrhosis 4. Portal venous hypertension with ascites 5. Severe protein calorie malnutrition PLAN: -No surgical intervention planned -Patient is stable for discharge from surgical standpoint -Recommend follow-up with GI service outpatient in regards to her liver cirrhosis Physician Cleater note has been reviewed by physician. Signing provider agrees with the documented findings, assessment, and plan of care. Objective - Vital Signs Vital signs: Vital Signs Temp 98.2 F 04/07/24 06:58 Pulse 92 04/07/24 06:58 Resp 18 04/07/24 06:58 BP 107/61 04/07/24 06:58 Pulse Ox 95 04/07/24 06:58 FiO2 Intake & Output 04/06/24 04/07/24 04/07/24 18:59 06:59 18:59 Intake Total 420 270 Balance 420 270 Intake: Oral 420 270 Other: Voiding Method Toilet Toilet # Voids 1 1 - Labs CBC & Chem 7: 04/07/24 05:42 04/07/24 05:42 Labs: Abnormal Lab Results - Last 24 Hours (Table) 04/06/24 04/06/24 04/06/24 Range/Units 06:51 06:51 19:35 WBC (4.50-10.00) X 10*3/uL RBC (4.10-5.20) X 10*6/uL Hgb (12.0-15.0) g/dL Hct (37.2-46.3) % MCV (80.0-97.0) FL MCH (27.0-32.0) pg RDW (11.5-14.5) % Immature Gran # (0.00-0.04) X 10*3/uL Neutrophils # (1.80-7.70) X 10*3/uL Monocytes # (0.20-1.00) X 10*3/uL Basophils # (0.00-0.10) X 10*3/uL Sodium 128 L (135-145) mmol/L Chloride 92 L (96-109) mmol/L Carbon Dioxide (21.6-31.8) mmol/L Anion Gap 13.20 H (4.00-12.00) mmol/L Est GFR (CKD-EPI) 54 L (>=60) BUN/Creatinine Ratio 20.36 H (12.00-20.00) Ratio Calcium 8.3 L (8.7-10.3) mg/dL Total Bilirubin 9.5 H 9.2 H (0.3-1.2) mg/dL AST 122 H (13-35) U/L ALT 45 H (8-44) U/L C-Reactive Protein (0.00-0.80) mg/dL Albumin 2.8 L (3.8-4.9) g/dL Globulin 4.5 H (1.6-3.3) g/dL Albumin/Globulin Ratio 0.62 L (1.60-3.17) Ratio Procalcitonin (0.02-0.09) ng/mL Urine Appearance Cloudy H (Clear) Urine Protein Trace H (Negative) Urine Blood Trace H (Negative) Urine Bilirubin 2+ H (Negative) Ur Leukocyte Esterase Trace H (Negative) Urine WBC 6 H (0-5) /hpf Ur Squamous Epith Cells 11 H (0-4) /hpf Urine Bacteria Rare H (None) /hpf Hyaline Casts 19 H (0-2) /lpf Urine Mucus Occasional H (None) /hpf 04/07/24 04/07/24 04/07/24 Range/Units 05:42 05:42 05:42 WBC 16.79 H (4.50-10.00) X 10*3/uL RBC 3.01 L (4.10-5.20) X 10*6/uL Hgb 11.8 L (12.0-15.0) g/dL Hct 32.2 L (37.2-46.3) % MCV 107.0 H (80.0-97.0) FL MCH 39.2 H (27.0-32.0) pg RDW 16.0 H (11.5-14.5) % Immature Gran # 0.44 H (0.00-0.04) X 10*3/uL Neutrophils # 12.92 H (1.80-7.70) X 10*3/uL Monocytes # 1.30 H (0.20-1.00) X 10*3/uL Basophils # 0.11 H (0.00-0.10) X 10*3/uL Sodium 127 L (135-145) mmol/L Chloride 90 L (96-109) mmol/L Carbon Dioxide 21.3 L (21.6-31.8) mmol/L Anion Gap 15.70 H (4.00-12.00) mmol/L Est GFR (CKD-EPI) 45 L (>=60) BUN/Creatinine Ratio (12.00-20.00) Ratio Calcium 8.5 L (8.7-10.3) mg/dL Total Bilirubin 9.3 H (0.3-1.2) mg/dL AST 120 H (13-35) U/L ALT 46 H (8-44) U/L C-Reactive Protein 8.50 H (0.00-0.80) mg/dL Albumin 2.8 L (3.8-4.9) g/dL Globulin 4.5 H (1.6-3.3) g/dL Albumin/Globulin Ratio 0.62 L (1.60-3.17) Ratio Procalcitonin 0.84 H (0.02-0.09) ng/mL Urine Appearance (Clear) Urine Protein (Negative) Urine Blood (Negative) Urine Bilirubin (Negative) Ur Leukocyte Esterase (Negative) Urine WBC (0-5) /hpf Ur Squamous Epith Cells (0-4) /hpf Urine Bacteria (None) /hpf Hyaline Casts (0-2) /lpf Urine Mucus (None) /hpf
[2024-04-07] MEDS: FLUCONAZOLE 100 MG TAB PO ONE (15:41)
--- NOTE | 2024-04-07 15:49 | P.PN ---
Subjective Progress Note Date: 04/07/24 Principal diagnosis: Reason for follow-up is leukocytosis Patient is a 68-year-old female with a past medical history significant for alcohol abuse presented to the hospital for evaluation of increased weakness decreased appetite abdominal distention patient be diagnosed with cirrhosis of the liver secondary to alcoholism did have paracentesis abdominal culture negative with worsening white count prompted this consultation. On today's evaluation that is 04/06/2024, Patient is afebrile patient is currently on room air and denies having any shortness of breath, the patient denies any chest pain or cough, the patient denies any nausea vomiting did not have any abdominal pain and no diarrhea. Patient white count is 16.7, creatinine is 1.3 Objective - Vital Signs Vital signs: Vital Signs Temp 98.2 F 04/07/24 06:58 Pulse 92 04/07/24 06:58 Resp 18 04/07/24 06:58 BP 107/61 04/07/24 06:58 Pulse Ox 95 04/07/24 06:58 FiO2 Intake & Output 04/06/24 04/07/24 04/07/24 18:59 06:59 18:59 Intake Total 420 270 Balance 420 270 Intake: Oral 420 270 Other: Voiding Method Toilet Toilet # Voids 1 1 2 - Exam GENERAL DESCRIPTION: An elderly female lying in bed in no distress HEENT: Oral thrush RESPIRATORY SYSTEM: Unlabored breathing , decreased breath sounds at bases HEART: S1 S2 regular rate and rhythm , ABDOMEN: Soft , no tenderness EXTREMITIES: No edema feet - Labs CBC & Chem 7: 04/07/24 05:42 04/07/24 05:42 Labs: Abnormal Lab Results - Last 24 Hours (Table) 04/06/24 04/06/24 04/07/24 Range/Units 06:51 19:35 05:42 WBC (4.50-10.00) X 10*3/uL RBC (4.10-5.20) X 10*6/uL Hgb (12.0-15.0) g/dL Hct (37.2-46.3) % MCV (80.0-97.0) FL MCH (27.0-32.0) pg RDW (11.5-14.5) % Immature Gran # (0.00-0.04) X 10*3/uL Neutrophils # (1.80-7.70) X 10*3/uL Monocytes # (0.20-1.00) X 10*3/uL Basophils # (0.00-0.10) X 10*3/uL Sodium (135-145) mmol/L Chloride (96-109) mmol/L Carbon Dioxide (21.6-31.8) mmol/L Anion Gap (4.00-12.00) mmol/L Est GFR (CKD-EPI) (>=60) Calcium (8.7-10.3) mg/dL Total Bilirubin 9.2 H (0.3-1.2) mg/dL AST (13-35) U/L ALT (8-44) U/L C-Reactive Protein (0.00-0.80) mg/dL Albumin (3.8-4.9) g/dL Globulin (1.6-3.3) g/dL Albumin/Globulin Ratio (1.60-3.17) Ratio Procalcitonin 0.84 H (0.02-0.09) ng/mL Urine Appearance Cloudy H (Clear) Urine Protein Trace H (Negative) Urine Blood Trace H (Negative) Urine Bilirubin 2+ H (Negative) Ur Leukocyte Esterase Trace H (Negative) Urine WBC 6 H (0-5) /hpf Ur Squamous Epith Cells 11 H (0-4) /hpf Urine Bacteria Rare H (None) /hpf Hyaline Casts 19 H (0-2) /lpf Urine Mucus Occasional H (None) /hpf 04/07/24 04/07/24 Range/Units 05:42 05:42 WBC 16.79 H (4.50-10.00) X 10*3/uL RBC 3.01 L (4.10-5.20) X 10*6/uL Hgb 11.8 L (12.0-15.0) g/dL Hct 32.2 L (37.2-46.3) % MCV 107.0 H (80.0-97.0) FL MCH 39.2 H (27.0-32.0) pg RDW 16.0 H (11.5-14.5) % Immature Gran # 0.44 H (0.00-0.04) X 10*3/uL Neutrophils # 12.92 H (1.80-7.70) X 10*3/uL Monocytes # 1.30 H (0.20-1.00) X 10*3/uL Basophils # 0.11 H (0.00-0.10) X 10*3/uL Sodium 127 L (135-145) mmol/L Chloride 90 L (96-109) mmol/L Carbon Dioxide 21.3 L (21.6-31.8) mmol/L Anion Gap 15.70 H (4.00-12.00) mmol/L Est GFR (CKD-EPI) 45 L (>=60) Calcium 8.5 L (8.7-10.3) mg/dL Total Bilirubin 9.3 H (0.3-1.2) mg/dL AST 120 H (13-35) U/L ALT 46 H (8-44) U/L C-Reactive Protein 8.50 H (0.00-0.80) mg/dL Albumin 2.8 L (3.8-4.9) g/dL Globulin 4.5 H (1.6-3.3) g/dL Albumin/Globulin Ratio 0.62 L (1.60-3.17) Ratio Procalcitonin (0.02-0.09) ng/mL Urine Appearance (Clear) Urine Protein (Negative) Urine Blood (Negative) Urine Bilirubin (Negative) Ur Leukocyte Esterase (Negative) Urine WBC (0-5) /hpf Ur Squamous Epith Cells (0-4) /hpf Urine Bacteria (None) /hpf Hyaline Casts (0-2) /lpf Urine Mucus (None) /hpf Assessment and Plan (1) Leukocytosis Current Visit: Yes Status: Acute Code(s): D72.829 - ELEVATED WHITE BLOOD CELL COUNT, UNSPECIFIED SNOMED Code(s): 752049177 (2) Oral thrush Current Visit: Yes Status: Acute Code(s): B37.0 - CANDIDAL STOMATITIS SNOMED Code(s): 61401669 Plan: 1patient with elevated white count and this patient presented to hospital with weakness decreased appetite did have a abdominal ascites from cirrhosis of the liver status post paracentesis and those culture has been negative patient did not have any fever during this hospital stay noticed to have mild thrush could be etiology of this elevated white count has no other obvious focus of infection 2-UA has been negative 3-patient to continue with the nystatin swish and swallow we will add Diflucan as a white count did not show significant improvement discontinue Cipro Dictation was produced using [employer] dictation software. please excuse any grammatical, word or spelling errors.
[2024-04-08] MEDS: FLUCONAZOLE 100 MG TAB PO SCH (08:26)
[2024-04-08] MEDS: SODIUM CHLORIDE 0.9% 1,000 ML IV SCH (08:28)
[2024-04-08 10:11] LABS: Basophils % (A) 0.6 %; Eosinophils # (A) 0.25 X 10*3/uL (0.04-0.35); Eosinophils % (A) 1.5 %; HCT 31.7 % (37.2-46.3); HGB 11.5 g/dL (12.0-15.0); Lymphocytes # (A) 1.85 X 10*3/uL (0.90-5.00); Lymphocytes % (A) 10.8 %; MCH 38.7 pg (27.0-32.0); MCHC 36.3 g/dL (32.0-37.0); MCV 106.7 FL (80.0-97.0); Mean Platelet Volume 10.6 FL (9.5-12.2); Monocytes % (A) 8.7 %; NRBC Per 100 WBC 0 X 10*3/uL (0.00-0.01); Neutrophils # (A) 13.02 X 10*3/uL (1.80-7.70); Neutrophils % (A) 75.8 %; Platelet Count 163 X 10*3/uL (140-440); RBC 2.97 X 10*6/uL (4.10-5.20); RDW 15.9 % (11.5-14.5); WBC 17.17 X 10*3/uL (4.50-10.00)
[2024-04-08 11:01] LABS: ALT 49 U/L (8-44); AST 119 U/L (13-35); Albumin 2.8 g/dL (3.8-4.9); Albumin/Globulin Ratio 0.65 Ratio (1.60-3.17); Alkaline Phosphatase 115 U/L (41-126); BUN/Creat Ratio 20.29 Ratio (12.00-20.00); Blood Urea Nitrogen 28.4 mg/dL (9.0-27.0); Calcium 8.4 mg/dL (8.7-10.3); Carbon Dioxide 22.6 mmol/L (21.6-31.8); Chloride 91 mmol/L (96-109); Globulin 4.3 g/dL (1.6-3.3); Glucose 107 mg/dL (70-110); Potassium 4.4 mmol/L (3.5-5.5); Sodium 126 mmol/L (135-145); Total Bilirubin 9.2 mg/dL (0.3-1.2); Total Protein 7.1 g/dL (6.2-8.2)
--- NOTE | 2024-04-08 14:35 | P.PN ---
Subjective Progress Note Date: 04/08/24 CHIEF COMPLAINT: Abdominal distention HISTORY OF PRESENT ILLNESS: The patient is a 68-year-old female with pre- existing liver cirrhosis being followed for abdominal distention. She reports no acute abdominal pain. She is tolerating diet. No fevers or chills. ROS: No reports of nausea and vomiting. No fevers or chills. No new chest pain. No productive sputum PHYSICAL EXAM: VITAL SIGNS: Reviewed CONSTITUTIONAL: Well developed and in no acute distress. EYES: Conjuctivae with sclera icterus. Extraocular movements grossly intact. HEAD, EARS, NOSE, THROAT: Moist buccal mucosa. Head is atraumatic, normocephalic. Hears conversational speech. No nasal drainage. RESPIRATORY: Non-labored respirations and equal bilateral excursions. CARDIOVASCULAR: Palpable 2+ radial pulses. ABDOMEN: Abdominal ascites. No peritonitis. MUSCULOSKELETAL: No gross deformity of the lower extremities noted. No clubbing. No cyanosis. SKIN: Good skin turgor. Well perfused. NEUROLOGIC: Cranial nerves II through XII grossly intact. No focal or lateralizing signs. PSYCH: Appropriate affect. Alert and oriented to person, place and time. CLINICAL LABS: Reviewed. WBC elevated 16.7-17.1. Sodium low 126 STUDIES: CT of the abdomen pelvis from 03/29/2024 reviewed demonstrates marked diffuse abdominal ascites. Gallbladder present with mild distention. No diffuse free air or colitis. This is my independent interpretation. ASSESSMENT: 1. Abdominal ascites due to liver cirrhosis 2. Leukocytosis 3. Hyponatremia PLAN: 1. Continue medical management for hyponatremia with sodium restriction 2. No acute surgical invention due to current multiple medical comorbidities. Objective - Vital Signs Vital signs: Vital Signs Temp 98.2 F 04/08/24 06:51 Pulse 67 04/08/24 08:25 Resp 18 04/08/24 08:25 BP 92/53 04/08/24 09:53 Pulse Ox 94 L 04/08/24 06:51 FiO2 Intake & Output 04/07/24 04/08/24 04/08/24 18:59 06:59 18:59 Intake Total 270 Balance 270 Intake: Oral 270 Other: Voiding Method Toilet Toilet # Voids 2 1 - Labs CBC & Chem 7: 04/08/24 06:15 04/08/24 06:15 Labs: Abnormal Lab Results - Last 24 Hours (Table) 04/08/24 04/08/24 Range/Units 06:15 06:15 WBC 17.17 H (4.50-10.00) X 10*3/uL RBC 2.97 L (4.10-5.20) X 10*6/uL Hgb 11.5 L (12.0-15.0) g/dL Hct 31.7 L (37.2-46.3) % MCV 106.7 H (80.0-97.0) FL MCH 38.7 H (27.0-32.0) pg RDW 15.9 H (11.5-14.5) % Immature Gran # 0.45 H (0.00-0.04) X 10*3/uL Neutrophils # 13.02 H (1.80-7.70) X 10*3/uL Monocytes # 1.50 H (0.20-1.00) X 10*3/uL Sodium 126 L (135-145) mmol/L Chloride 91 L (96-109) mmol/L Anion Gap 12.40 H (4.00-12.00) mmol/L BUN 28.4 H (9.0-27.0) mg/dL Est GFR (CKD-EPI) 41 L (>=60) BUN/Creatinine Ratio 20.29 H (12.00-20.00) Ratio Calcium 8.4 L (8.7-10.3) mg/dL Total Bilirubin 9.2 H (0.3-1.2) mg/dL AST 119 H (13-35) U/L ALT 49 H (8-44) U/L C-Reactive Protein 8.20 H (0.00-0.80) mg/dL Albumin 2.8 L (3.8-4.9) g/dL Globulin 4.3 H (1.6-3.3) g/dL Albumin/Globulin Ratio 0.65 L (1.60-3.17) Ratio
--- NOTE | 2024-04-08 15:42 | P.PN ---
Subjective Progress Note Date: 04/08/24 Principal diagnosis: Reason for follow-up is leukocytosis Patient is a 68-year-old female with a past medical history significant for alcohol abuse presented to the hospital for evaluation of increased weakness decreased appetite abdominal distention patient be diagnosed with cirrhosis of the liver secondary to alcoholism did have paracentesis abdominal culture negative with worsening white count prompted this consultation. On today's evaluation that is 04/08/2024, Patient is afebrile this morning patient denies having any chest pain shortness of breath or cough, the patient is breathing comfortably and currently on room air, patient denies any abdominal pain no diarrhea no nausea no vomiting, no new symptoms. Patient white count is up to 17.17, creatinine is 1.4 Pro-S[address] 0[address] chest was negative for any pneumonia Objective - Vital Signs Vital signs: Vital Signs Temp 98.0 F 04/08/24 13:55 Pulse 94 04/08/24 13:55 Resp 18 04/08/24 13:55 BP 104/58 04/08/24 13:55 Pulse Ox 96 04/08/24 13:55 FiO2 Intake & Output 04/07/24 04/08/24 04/08/24 18:59 06:59 18:59 Intake Total 270 Balance 270 Intake: Oral 270 Other: Voiding Method Toilet Toilet # Voids 2 1 - Exam GENERAL DESCRIPTION: An elderly female lying in bed in no distress HEENT: Oral thrush RESPIRATORY SYSTEM: Unlabored breathing , decreased breath sounds at bases HEART: S1 S2 regular rate and rhythm , ABDOMEN: Soft , no tenderness EXTREMITIES: No edema feet - Labs CBC & Chem 7: 04/08/24 06:15 04/08/24 06:15 Labs: Abnormal Lab Results - Last 24 Hours (Table) 04/08/24 04/08/24 Range/Units 06:15 06:15 WBC 17.17 H (4.50-10.00) X 10*3/uL RBC 2.97 L (4.10-5.20) X 10*6/uL Hgb 11.5 L (12.0-15.0) g/dL Hct 31.7 L (37.2-46.3) % MCV 106.7 H (80.0-97.0) FL MCH 38.7 H (27.0-32.0) pg RDW 15.9 H (11.5-14.5) % Immature Gran # 0.45 H (0.00-0.04) X 10*3/uL Neutrophils # 13.02 H (1.80-7.70) X 10*3/uL Monocytes # 1.50 H (0.20-1.00) X 10*3/uL Sodium 126 L (135-145) mmol/L Chloride 91 L (96-109) mmol/L Anion Gap 12.40 H (4.00-12.00) mmol/L BUN 28.4 H (9.0-27.0) mg/dL Est GFR (CKD-EPI) 41 L (>=60) BUN/Creatinine Ratio 20.29 H (12.00-20.00) Ratio Calcium 8.4 L (8.7-10.3) mg/dL Total Bilirubin 9.2 H (0.3-1.2) mg/dL AST 119 H (13-35) U/L ALT 49 H (8-44) U/L C-Reactive Protein 8.20 H (0.00-0.80) mg/dL Albumin 2.8 L (3.8-4.9) g/dL Globulin 4.3 H (1.6-3.3) g/dL Albumin/Globulin Ratio 0.65 L (1.60-3.17) Ratio Assessment and Plan (1) Leukocytosis Current Visit: Yes Status: Acute Code(s): D72.829 - ELEVATED WHITE BLOOD CELL COUNT, UNSPECIFIED SNOMED Code(s): 426947802 (2) Oral thrush Current Visit: Yes Status: Acute Code(s): B37.0 - CANDIDAL STOMATITIS SN OMED Code(s): 42977894 Plan: 1patient with elevated white count and this patient presented to hospital with weakness decreased appetite did have a abdominal ascites from cirrhosis of the liver status post paracentesis and those culture has been negative patient did not have any fever during this hospital stay noticed to have mild thrush could be etiology of this elevated white count has no other obvious focus of infection 2-UA has been negative, CT of the chest no pneumonia however the patient did have elevated procalcitonin 3-patient to continue with the nystatin swish and swallow along with Diflucan keeping in mind elevated procalcitonin will add Unasyn and repeat a CBC with a.m. lab Dictation was produced using [employer] dictation software. please excuse any grammatical, word or spelling errors. Time with Patient: Less than 30
[2024-04-08] MEDS: AMPICILLIN-SULBACTAM 3 GM in SODIUM CHLORIDE 0.9% 100 ML IVPB SCH (17:41)
--- NOTE | 2024-04-08 21:57 | PN ---
PROGRESS NOTE SUBJECTIVE: Her bilirubin is stable at 9.2, but she is dehydrated. Her sodium dropped down to 126. I gave her normal saline, which has increased her blood pressure, which is low 80s to 90s up to 100s to 110s systolic. She possibly get too much Lasix and spironolactone. She has elevated white count. Dr. Dye started her on Unasyn until we get final cultures back. She has liver cirrhosis, status post paracentesis, alcohol dependence, hypotension secondary to dehydration, and overuse of diuretics. Possibly hold her Lasix or spironolactone on discharge. Surgery saw her, cleared her for discharge. She looks weak and fatigued. OBJECTIVE: CARDIOVASCULAR: S1, S2. LUNGS: Transmitted upper sounds. GI: Soft, distended, obesity. EXTREMITIES: No edema. Prognosis guarded. Continue current treatments. Empiric antibiotics for leukocytosis which is increasing. Culture workup per Dr. Dye, dehydration, hyponatremia secondary to dehydration. Give her fluids. Jaundice and liver cirrhosis is stable at 9.2 to 9.3. Continue current treatments. Prognosis guarded. MMODL / IJN: [id number] /
[2024-04-09 04:25] LABS: ALT 46 U/L (4-34); AST 134 U/L (14-36); African American GFR (CKD) 53 (>60 ml/min/1.73 sqM); Albumin 2.7 g/dL (3.5-5.0); Albumin/Globulin Ratio 0.6; Alkaline Phosphatase 144 U/L (38-126); Anion Gap 10 mmol/L; Blood Urea Nitrogen 28 mg/dL (7-17); C Reactive Protein 6.4 mg/dL (<1.0); Calcium 8.1 mg/dL (8.4-10.2); Carbon Dioxide 19 mmol/L (22-30); Chloride 97 mmol/L (98-107); Globulin 4.5 g/dL; Glucose 115 mg/dL (74-99); Non-African American GFR(CKD) 46 (>60 ml/min/1.73 sqM); Potassium 4.3 mmol/L (3.5-5.1); Sodium 126 mmol/L (137-145); Total Bilirubin 10.4 mg/dL (0.2-1.3); Total Protein 7.2 g/dL (6.3-8.2)
[2024-04-09 04:35] LABS: Basophils # (A) 0.1 k/uL (0-0.2); Basophils % (A) 1 %; Eosinophils # (A) 0.1 k/uL (0-0.7); Eosinophils % (A) 1 %; HCT 33.2 % (34.0-46.0); HGB 11.3 gm/dL (11.4-16.0); Lymphocytes # (A) 1.2 k/uL (1.0-4.8); Lymphocytes % (A) 9 %; MCH 39.2 pg (25.0-35.0); Macrocytosis Marked; Mean Platelet Volume 8.2; Monocytes # (A) 0.9 k/uL (0-1.0); Monocytes % (A) 6 %; Neutrophils # (A) 11.7 k/uL (1.3-7.7); Neutrophils % (A) 83 %; Platelet Count 189 k/uL (150-450); RBC 2.88 m/uL (3.80-5.40); RDW 13.8 % (11.5-15.5); WBC 14.1 k/uL (3.8-10.6)
[2024-04-09 04:42] LABS: MCV 115.3 fL (80.0-100.0)
[2024-04-09] MEDS: IOPAMIDOL CONTRAST (ORAL USE) VIAL PO PRN (12:07)
--- NOTE | 2024-04-09 14:09 | CT ---
EXAMINATION TYPE: CT abdomen pelvis wo con DATE OF EXAM: 04/09/2024 HISTORY: leukocytosis CT DLP: 472.3 mGycm. Automated Exposure Control for Dose Reduction was Utilized. TECHNIQUE: CT scan of the abdomen and pelvis is performed without oral or IV contrast. COMPARISON: 03/29/2024 Findings: There are mild interstitial changes in the lung bases.. Gallbladder is normal and there is no gallstone, wall thickening, pericholecystic fluid or distention . There is no biliary ductal dilatation. The liver contour is lobulated consistent with cirrhosis. There is stable marked ascites. There are no renal calcifications or hydronephrosis. The caliber of the abdominal aorta is normal and there is no retroperitoneal adenopathy or hemorrhage . The bowel loops are normal in caliber is no evidence of obstruction. There is questionable thickening of the wall of a small bowel loop in the mid abdomen not identified on the prior study. There is no pelvic mass, free fluid, abscess or adenopathy. The osseous structures and soft tissues are unremarkable. IMPRESSION: 1. Marked stable ascites. 2. Cirrhotic liver. 3. Questionable inflamed short small bowel loop in the midabdomen
--- NOTE | 2024-04-09 15:03 | P.PN ---
Subjective Progress Note Date: 04/09/24 Principal diagnosis: Reason for follow-up is leukocytosis Patient is a 68-year-old female with a past medical history significant for alcohol abuse presented to the hospital for evaluation of increased weakness decreased appetite abdominal distention patient be diagnosed with cirrhosis of the liver secondary to alcoholism did have paracentesis abdominal culture negative with worsening white count prompted this consultation. On today's evaluation that is 04/09/2024,the patient denies any fever or any chills, patient is breathing comfortably on room air, the patient denies chest pain shortness of breath and no significant cough, patient denies abdominal pain, no nausea vomiting or diarrhea. No new symptoms. Patient white count is down to 14.1, creatinine is 1.20 Objective - Vital Signs Vital signs: Vital Signs Temp 97.7 F 04/09/24 06:59 Pulse 94 04/09/24 08:15 Resp 18 04/09/24 08:15 BP 105/59 04/09/24 06:59 Pulse Ox 95 04/09/24 06:59 FiO2 Intake & Output 04/08/24 04/09/24 04/09/24 18:59 06:59 18:59 Other: Voiding Method Toilet Toilet # Voids 4 1 - Exam GENERAL DESCRIPTION: An elderly female lying in bed in no distress HEENT: Oral thrush RESPIRATORY SYSTEM: Unlabored breathing , decreased breath sounds at bases HEART: S1 S2 regular rate and rhythm , ABDOMEN: Soft , no tenderness EXTREMITIES: No edema feet - Labs CBC & Chem 7: 04/09/24 03:27 04/09/24 03:27 Labs: Abnormal Lab Results - Last 24 Hours (Table) 04/09/24 04/09/24 Range/Units 03:27 03:27 WBC 14.1 H (3.8-10.6) k/uL RBC 2.88 L (3.80-5.40) m/uL Hgb 11.3 L (11.4-16.0) gm/dL Hct 33.2 L (34.0-46.0) % MCV 115.3 H (80.0-100.0) fL MCH 39.2 H (25.0-35.0) pg Neutrophils # 11.7 H (1.3-7.7) k/uL Macrocytosis Marked A Sodium 126 L (137-145) mmol/L Chloride 97 L (98-107) mmol/L Carbon Dioxide 19 L (22-30) mmol/L BUN 28 H (7-17) mg/dL Creatinine 1.20 H (0.52-1.04) mg/dL Glucose 115 H (74-99) mg/dL Calcium 8.1 L (8.4-10.2) mg/dL Total Bilirubin 10.4 H (0.2-1.3) mg/dL AST 134 H (14-36) U/L ALT 46 H (4-34) U/L Alkaline Phosphatase 144 H (38-126) U/L C-Reactive Protein 6.4 H (<1.0) mg/dL Albumin 2.7 L (3.5-5.0) g/dL Assessment and Plan (1) Leukocytosis Current Visit: Yes Status: Acute Code(s): D72.829 - ELEVATED WHITE BLOOD CELL COUNT, UNSPECIFIED SNOMED Code(s): 662993749 (2) Oral thrush Current Visit: Yes Status: Acute Code(s): B37.0 - CANDIDAL STOMATITIS SNOMED Code(s): 81939370 Plan: 1patient with elevated white count and this patient presented to hospital with weakness decreased appetite did have a abdominal ascites from cirrhosis of the liver status post paracentesis and those culture has been negative patient did not have any fever during this hospital stay noticed to have mild thrush could be etiology of this elevated white count has no other obvious focus of infection 2-UA has been negative, CT of the chest no pneumonia however the patient did have elevated procalcitonin 3-with concern for possible abdominal source we will obtain CT abdominal pelvis with oral contrast continue with Unasyn to which the patient white count has responded Family the bedside questions were answered Dictation was produced using [employer] dictation software. please excuse any grammatical, word or spelling errors. Time with Patient: Less than 30
--- NOTE | 2024-04-10 00:55 | P.PN ---
Subjective Patient seen and evaluated at bedside. Patient doing well, no complaints. No overnight issues. Objective - Vital Signs Vital signs: Vital Signs Temp 98.2 F 04/09/24 19:23 Pulse 89 04/09/24 20:10 Resp 18 04/09/24 20:10 BP 106/50 04/09/24 19:23 Pulse Ox 96 04/09/24 19:23 FiO2 Intake & Output 04/09/24 04/09/24 04/10/24 06:59 18:59 06:59 Other: Voiding Method Toilet Toilet # Voids 1 3 - Exam gen: nad cv: rrr pul: non labored breathing abd: soft, distended, non tender to palpation, no guarding or rebound tenderness - Labs CBC & Chem 7: 04/09/24 03:27 04/09/24 03:27 Labs: Abnormal Lab Results - Last 24 Hours (Table) 04/09/24 04/09/24 Range/Units 03:27 03:27 WBC 14.1 H (3.8-10.6) k/uL RBC 2.88 L (3.80-5.40) m/uL Hgb 11.3 L (11.4-16.0) gm/dL Hct 33.2 L (34.0-46.0) % MCV 115.3 H (80.0-100.0) fL MCH 39.2 H (25.0-35.0) pg Neutrophils # 11.7 H (1.3-7.7) k/uL Macrocytosis Marked A Sodium 126 L (137-145) mmol/L Chloride 97 L (98-107) mmol/L Carbon Dioxide 19 L (22-30) mmol/L BUN 28 H (7-17) mg/dL Creatinine 1.20 H (0.52-1.04) mg/dL Glucose 115 H (74-99) mg/dL Calcium 8.1 L (8.4-10.2) mg/dL Total Bilirubin 10.4 H (0.2-1.3) mg/dL AST 134 H (14-36) U/L ALT 46 H (4-34) U/L Alkaline Phosphatase 144 H (38-126) U/L C-Reactive Protein 6.4 H (<1.0) mg/dL Albumin 2.7 L (3.5-5.0) g/dL Assessment and Plan Assessment: 68 yo female w/ cirrhosis -denies abdominal pain -imaging negative for acute process -no surgical intervention Time with Patient: Less than 30
--- NOTE | 2024-04-10 04:42 | PN ---
PROGRESS NOTE SUBJECTIVE: Patient remained hypotensive today. We stopped her diuretics, have given her fluids again to get her blood pressure. Kidney function appears to be improving on Protonix. She is on broad-spectrum antibiotics for leukocytosis of unclear etiology. Dr. Dye ordered an abdominopelvic CAT scan to look for signs of infection, which showed mild interstitial changes in the lung bases. Gallbladder is okay. Liver shows cirrhosis broad-spectrum antibiotics. Bilirubin is up to 10.5 today. OBJECTIVE: LUNGS: Transmitted upper sounds. GI: Distended, soft. Normal bowel sounds. HEMATOLOGY: Negative for Homans. PSYCH: Fair mood and affect. INTEGUMENTARY: She is jaundiced. LABORATORY DATA: White count is 14.1, hemoglobin is 11.3. BUN is , creatinine 1.20. Sodium is low at 126 with dehydration, stopped her diuretics as mentioned above. ASSESSMENT AND PLAN: 1. Leukocytosis of unclear etiology. 2. Status post paracentesis. So far, cultures are negative. 3. Mild thrush. 4. No signs of infection. 5. UA is negative. 6. Did have elevated procalcitonin. seen on CAT scan. Wait for Dr. Dye's recommendations. MMODL / IJN: [id number] /
[2024-04-10 10:05] LABS: Basophils # (A) 0.15 X 10*3/uL (0.00-0.10); Basophils % (A) 0.8 %; Eosinophils # (A) 0.18 X 10*3/uL (0.04-0.35); Eosinophils % (A) 0.9 %; HCT 30.5 % (37.2-46.3); HGB 10.9 g/dL (12.0-15.0); Lymphocytes # (A) 1.72 X 10*3/uL (0.90-5.00); MCH 38.7 pg (27.0-32.0); MCHC 35.7 g/dL (32.0-37.0); MCV 108.2 FL (80.0-97.0); Mean Platelet Volume 10.6 FL (9.5-12.2); Monocytes % (A) 7.3 %; NRBC Per 100 WBC 0 X 10*3/uL (0.00-0.01); Neutrophils # (A) 15.28 X 10*3/uL (1.80-7.70); Neutrophils % (A) 79.5 %; Platelet Count 179 X 10*3/uL (140-440); RBC 2.82 X 10*6/uL (4.10-5.20); RDW 16.1 % (11.5-14.5); WBC 19.21 X 10*3/uL (4.50-10.00)
[2024-04-10 11:04] LABS: ALT 47 U/L (8-44); AST 124 U/L (13-35); Albumin 2.5 g/dL (3.8-4.9); Albumin/Globulin Ratio 0.58 Ratio (1.60-3.17); Alkaline Phosphatase 117 U/L (41-126); BUN/Creat Ratio 19.69 Ratio (12.00-20.00); Blood Urea Nitrogen 25.6 mg/dL (9.0-27.0); Carbon Dioxide 20.3 mmol/L (21.6-31.8); Chloride 92 mmol/L (96-109); Globulin 4.3 g/dL (1.6-3.3); Glucose 112 mg/dL (70-110); Potassium 4.3 mmol/L (3.5-5.5); Sodium 125 mmol/L (135-145); Total Bilirubin 9.5 mg/dL (0.3-1.2); Total Protein 6.8 g/dL (6.2-8.2)
--- NOTE | 2024-04-10 12:44 | P.PN ---
Subjective Progress Note Date: 04/10/24 CHIEF COMPLAINT: Abdominal distention HISTORY OF PRESENT ILLNESS: The patient is a 68-year-old female with liver cirrhosis ascites being followed for abdominal distention. She had a CT of the abdomen pelvis yesterday. She has increased abdominal distention today. She reports having 2 bowel movements yesterday. She is on diet. ROS: No reports of nausea and vomiting. No fevers or chills. No new chest pain. No productive sputum PHYSICAL EXAM: VITAL SIGNS: Reviewed CONSTITUTIONAL: Well developed and in no acute distress. EYES: Jaundiced. Extraocular movements grossly intact. HEAD, EARS, NOSE, THROAT: Moist buccal mucosa. Head is atraumatic, normocephalic. Hears conversational speech. No nasal drainage. RESPIRATORY: Non-labored respirations and equal bilateral excursions. CARDIOVASCULAR: Palpable 2+ radial pulses. ABDOMEN: Increased abdominal distention. MUSCULOSKELETAL: No gross deformity of the lower extremities noted. No clubbing. No cyanosis. SKIN: Good skin turgor. Well perfused. NEUROLOGIC: Cranial nerves II through XII grossly intact. No focal or lateralizing signs. PSYCH: Appropriate affect. Alert and oriented to person, place and time. CLINICAL LABS: Reviewed. WBC elevated 16.7-17.1, now elevated over 19,000. Sodium 125. STUDIES: CT of the abdomen pelvis from yesterday demonstrated persistent abdominal ascites. No bowel obstruction or focal diffuse colitis. This is my independent interpretation. REPORT: CT of the abdomen pelvis report reviewed demonstrates severe liver cirrhosis including ascites. ASSESSMENT: 1. Abdominal ascites due to liver cirrhosis 2. Leukocytosis 3. Hyponatremia PLAN: 1. She has increased abdominal ascites and symptomatic. Discussion of paracentesis may be of benefit. 2. Recommend sodium restricted diet for increased abdominal ascites. Objective - Vital Signs Vital signs: Vital Signs Temp 98.1 F 04/10/24 07:29 Pulse 90 04/10/24 08:10 Resp 16 04/10/24 08:10 BP 102/59 04/10/24 07:29 Pulse Ox 96 04/10/24 07:29 FiO2 Intake & Output 04/09/24 04/10/24 04/10/24 18:59 06:59 18:59 Other: Voiding Method Toilet Toilet Toilet # Voids 3 1 - Labs CBC & Chem 7: 04/10/24 04:09 04/10/24 04:05 Labs: Abnormal Lab Results - Last 24 Hours (Table) 04/10/24 04/10/24 Range/Units 04:05 04:09 WBC 19.21 H (4.50-10.00) X 10*3/uL RBC 2.82 L (4.10-5.20) X 10*6/uL Hgb 10.9 L (12.0-15.0) g/dL Hct 30.5 L (37.2-46.3) % MCV 108.2 H (80.0-97.0) FL MCH 38.7 H (27.0-32.0) pg RDW 16.1 H (11.5-14.5) % Immature Gran # 0.48 H (0.00-0.04) X 10*3/uL Neutrophils # 15.28 H (1.80-7.70) X 10*3/uL Monocytes # 1.40 H (0.20-1.00) X 10*3/uL Basophils # 0.15 H (0.00-0.10) X 10*3/uL Sodium 125 L (135-145) mmol/L Chloride 92 L (96-109) mmol/L Carbon Dioxide 20.3 L (21.6-31.8) mmol/L Anion Gap 12.70 H (4.00-12.00) mmol/L Est GFR (CKD-EPI) 45 L (>=60) Glucose 112 H (70-110) mg/dL Calcium 8.0 L (8.7-10.3) mg/dL Total Bilirubin 9.5 H (0.3-1.2) mg/dL AST 124 H (13-35) U/L ALT 47 H (8-44) U/L Albumin 2.5 L (3.8-4.9) g/dL Globulin 4.3 H (1.6-3.3) g/dL Albumin/Globulin Ratio 0.58 L (1.60-3.17) Ratio
[2024-04-10] MEDS: IPRATROPIUM-ALBUTEROL 3 ML NEB INHALATION SCH (13:28)
[2024-04-10] MEDS: PIPERACILLIN-TAZOBACTAM 3.375 GM in SODIUM CHLORIDE 0.9% 100 ML IVPB SCH (17:12)
--- NOTE | 2024-04-10 17:17 | P.PN ---
Subjective Progress Note Date: 04/10/24 Principal diagnosis: Reason for follow-up is leukocytosis Patient is a 68-year-old female with a past medical history significant for alcohol abuse presented to the hospital for evaluation of increased weakness decreased appetite abdominal distention patient be diagnosed with cirrhosis of the liver secondary to alcoholism did have paracentesis abdominal culture negative with worsening white count prompted this consultation. On today's evaluation that is 04/10/2024,the patient remains to be afebrile, patient is on room air not requiring supplemental oxygen and denies any shortness of breath no chest pain or cough.Patient denies having any nausea or vomiting, did have more abdominal distention and some discomfort no diarrhea. Patient white count is up to 19.21 today, creatinine is 1.3 procalcitonin 0.94 Objective - Vital Signs Vital signs: Vital Signs Temp 98.1 F 04/10/24 07:29 Pulse 90 04/10/24 08:10 Resp 16 04/10/24 08:10 BP 102/59 04/10/24 07:29 Pulse Ox 96 04/10/24 07:29 FiO2 Intake & Output 04/09/24 04/10/24 04/10/24 18:59 06:59 18:59 Other: Voiding Method Toilet Toilet Toilet # Voids 3 1 - Exam GENERAL DESCRIPTION: An elderly female lying in bed in no distress HEENT: Oral thrush RESPIRATORY SYSTEM: Unlabored breathing , decreased breath sounds at bases HEART: S1 S2 regular rate and rhythm , ABDOMEN: Soft , no tenderness EXTREMITIES: No edema feet - Labs CBC & Chem 7: 04/10/24 04:09 04/10/24 04:05 Labs: Abnormal Lab Results - Last 24 Hours (Table) 04/10/24 04/10/24 Range/Units 04:05 04:09 WBC 19.21 H (4.50-10.00) X 10*3/uL RBC 2.82 L (4.10-5.20) X 10*6/uL Hgb 10.9 L (12.0-15.0) g/dL Hct 30.5 L (37.2-46.3) % MCV 108.2 H (80.0-97.0) FL MCH 38.7 H (27.0-32.0) pg RDW 16.1 H (11.5-14.5) % Immature Gran # 0.48 H (0.00-0.04) X 10*3/uL Neutrophils # 15.28 H (1.80-7.70) X 10*3/uL Monocytes # 1.40 H (0.20-1.00) X 10*3/uL Basophils # 0.15 H (0.00-0.10) X 10*3/uL Sodium 125 L (135-145) mmol/L Chloride 92 L (96-109) mmol/L Carbon Dioxide 20.3 L (21.6-31.8) mmol/L Anion Gap 12.70 H (4.00-12.00) mmol/L Est GFR (CKD-EPI) 45 L (>=60) Glucose 112 H (70-110) mg/dL Calcium 8.0 L (8.7-10.3) mg/dL Total Bilirubin 9.5 H (0.3-1.2) mg/dL AST 124 H (13-35) U/L ALT 47 H (8-44) U/L Albumin 2.5 L (3.8-4.9) g/dL Globulin 4.3 H (1.6-3.3) g/dL Albumin/Globulin Ratio 0.58 L (1.60-3.17) Ratio Assessment and Plan (1) Leukocytosis Current Visit: Yes Status: Acute Code(s): D72.829 - ELEVATED WHITE BLOOD CELL COUNT, UNSPECIFIED SNOMED Code(s): 382309627 (2) Oral thrush Current Visit: Yes Status: Acute Code(s): B37.0 - CANDIDAL STOMATITIS SNOMED Code(s): 06917869 Plan: 1patient with elevated white count and this patient presented to hospital with weakness decreased appetite did have a abdominal ascites from cirrhosis of the liver status post paracentesis and those culture has been negative patient did not have any fever during this hospital stay noticed to have mild thrush could be etiology of this elevated white count has no other obvious focus of infection 2-UA has been negative, CT of the chest no pneumonia however the patient did have elevated procalcitonin 3-patient did have CT abdominal pelvis with oral contrast which did shows significant ascites and possible inflammation of the small bowel with worsening of the white count antibiotics switched to Zosyn we will get IR drainage of the peritoneal fluid and the fluid should be sent for cell count and culture di scussed with admitting physician Dictation was produced using [employer] dictation software. please excuse any grammatical, word or spelling errors. Time with Patient: Less than 30
--- NOTE | 2024-04-11 02:48 | PN ---
PROGRESS NOTE SUBJECTIVE: White count is up to 19.21 from 14, hemoglobin is 10.9, neutrophils are high at 15.28, marked macrocytosis. GFR is improving up to 45. Calcium is low at 8. AST, ALT are elevated at 124 and . Albumin was 2.5, which continues to get lower, high procalcitonin. showed interstitial pneumonitis . Blood pressure is 102/59, O2 96 on room air, pulse is 88 to 90, respiratory rate 16 to 18, temperature 98.1. Abdominal pelvis CT did not show any signs of anything causing a fever except for possible colitis. LABORATORY DATA: BUN is 28, creatinine 1.20. White count is elevated. Bilirubin today was down back to 9.5 from 10.4, continues to decline next day or 2. We will get GI to see her, possibly discharge her home, worried about her elevated leukocytosis and septic workup, will get Dr. Dye's recommendations on this. PROGNOSIS: Guarded. MMODL / IJN: [id number] /
[2024-04-11 08:51] LABS: HCT 28.8 % (37.2-46.3); HGB 10.5 g/dL (12.0-15.0); MCH 38.7 pg (27.0-32.0); MCHC 36.5 g/dL (32.0-37.0); MCV 106.3 FL (80.0-97.0); Mean Platelet Volume 10.5 FL (9.5-12.2); NRBC Per 100 WBC 0 X 10*3/uL (0.00-0.01); Platelet Count 179 X 10*3/uL (140-440); RBC 2.71 X 10*6/uL (4.10-5.20); RDW 16.2 % (11.5-14.5); WBC 20.41 X 10*3/uL (4.50-10.00)
[2024-04-11 09:53] LABS: ALT 48 U/L (8-44); AST 122 U/L (13-35); Albumin 2.5 g/dL (3.8-4.9); Albumin/Globulin Ratio 0.61 Ratio (1.60-3.17); Alkaline Phosphatase 122 U/L (41-126); Blood Urea Nitrogen 29.4 mg/dL (9.0-27.0); Carbon Dioxide 19.5 mmol/L (21.6-31.8); Chloride 93 mmol/L (96-109); Globulin 4.1 g/dL (1.6-3.3); Glucose 104 mg/dL (70-110); Potassium 4.4 mmol/L (3.5-5.5); Sodium 126 mmol/L (135-145); Total Bilirubin 8.8 mg/dL (0.3-1.2); Total Protein 6.6 g/dL (6.2-8.2)
[2024-04-11 10:24] LABS: Basophils # (A) 0.16 X 10*3/uL (0.00-0.10); Basophils % (A) 0.8 %; Eosinophils # (A) 0.32 X 10*3/uL (0.04-0.35); Eosinophils % (A) 1.6 %; Lymphocytes # (A) 1.78 X 10*3/uL (0.90-5.00); Lymphocytes % (A) 8.7 %; Monocytes # (A) 1.67 X 10*3/uL (0.20-1.00); Monocytes % (A) 8.2 %; Neutrophils # (A) 15.97 X 10*3/uL (1.80-7.70); Neutrophils % (A) 78.2 %; Target Cells 2+
[2024-04-11 11:23] LABS: INR 1.6 (<1.2); Prothrombin Time 16.6 sec (10.0-12.5)
--- NOTE | 2024-04-11 15:09 | P.PN ---
Subjective Progress Note Date: 04/11/24 Principal diagnosis: Ascites This is a pleasant 68-year-old female who presented to the emergency department for increased weakness, decreased appetite and abdominal distention. Patient has history of alcohol abuse and was drinking quite heavily. She admitted to drinking 3 back on squirts daily for at least 10 years. States she has not been drinking at all for the last 2 weeks duration. She had abdominal CT that reports cirrhosis of the liver, portal hypertension with moderate to severe ascites. She denies any previous history of liver disease, no history of hepatitis, no previous history of ascites. States that her abdomen has been distended for last 2 weeks duration with some discomfort. at the bedside states that he has not really noticed that she was jaundice but states that she has been sleeping quite a bit and had decreased appetite not eating or drinking much. Patient with elevated liver enzymes. She denies any abdominal pain at this time, no nausea or vomiting, no fevers or chills. 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 Patient is scheduled to undergo paracentesis today. She is otherwise without any complaints. Denies any abdominal pain, nausea or vomiting. Today's labs WBC 12.0 hemoglobin 11.9 hematocrit 32 platelet count 164,000 INR 1.65 sodium 130 potassium 3.9 BUN 21 creatinine 1.1 total bilirubin 6.8 AST 118 ALT 37 alkaline phosphatase 137 hepatitis panel nonreactive. 04/01/2024 Patient seen and examined this morning as a follow-up. States she is feeling a little better yesterday. Yesterday she underwent paracentesis with 7.5 L removed following with albumin. She denies any abdominal pain, nausea or vomiting. WBC 11.1 hemoglobin 11.3 platelet count 150,000 sodium 133 potassium 3.8 18.4 creatinine 1.0 total bilirubin 7.3 AST 102-day-old T 31 alkaline phosphatase 111 04/11/2024 Patient seen and examined today as a follow-up. There was no gastroenterology present in the hospital last week. Patient has remained in the hospital now for 2 weeks. 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 Also noted to have acute alcohol hepatitis with elevated liver enzymes now stabilizing. She had a paracentesis on 719 and since then has had increased abdominal distention and is scheduled to undergo paracentesis today. Patient also has been noted to have leukocytosis this admission with a white count of 20.2 today. She denies any abdominal pain, nausea or vomiting. She has been afebrile. Infectious diseases following and patient is on Zosyn. Fluid cultures from first paracentesis were negative. Cytology negative. Objective - Vital Signs Vital signs: Vital Signs Temp 98.1 F 04/11/24 07:06 Pulse 92 04/11/24 07:06 Resp 18 04/11/24 07:06 BP 111/50 04/11/24 07:06 Pulse Ox 94 L 04/11/24 07:06 FiO2 Intake & Output 04/10/24 04/11/24 04/11/24 18:59 06:59 18:59 Other: Voiding Method Toilet Toilet # Voids 3 2 - Exam General appearance: The patient is alert, oriented, appears in no acute distress. HET: Head is normocephalic and atraumatic. Conjunctiva pink. Sclera icteric. Neck: Supple without lymphadenopathy. Abdomen: Soft, distended with ascites, nontender. Extremities: Normal skin color and turgor. No pedal edema Skin: No rashes, jaundice. Neurological: No focal deficits. Alert and oriented. - Labs CBC & Chem 7: 04/11/24 04:52 04/11/24 04:52 Labs: Abnormal Lab Results - Last 24 Hours (Table) 04/10/24 04/10/24 04/10/24 Range/Units 04:05 04:05 04:09 WBC 19.21 H (4.50-10.00) X 10*3/uL RBC 2.82 L (4.10-5.20) X 10*6/uL Hgb 10.9 L (12.0-15.0) g/dL Hct 30.5 L (37.2-46.3) % MCV 108.2 H (80.0-97.0) FL MCH 38.7 H (27.0-32.0) pg RDW 16.1 H (11.5-14.5) % Immature Gran # 0.48 H (0.00-0.04) X 10*3/uL Neutrophils # 15.28 H (1.80-7.70) X 10*3/uL Monocytes # 1.40 H (0.20-1.00) X 10*3/uL Basophils # 0.15 H (0.00-0.10) X 10*3/uL Sodium 125 L (135-145) mmol/L Chloride 92 L (96-109) mmol/L Carbon Dioxide 20.3 L (21.6-31.8) mmol/L Anion Gap 12.70 H (4.00-12.00) mmol/L Est GFR (CKD-EPI) 45 L (>=60) Glucose 112 H (70-110) mg/dL Calcium 8.0 L (8.7-10.3) mg/dL Total Bilirubin 9.5 H (0.3-1.2) mg/dL AST 124 H (13-35) U/L ALT 47 H (8-44) U/L Albumin 2.5 L (3.8-4.9) g/dL Globulin 4.3 H (1.6-3.3) g/dL Albumin/Globulin Ratio 0.58 L (1.60-3.17) Ratio Procalcitonin 0.94 H (0.02-0.50) ng/mL 04/11/24 Range/Units 04:52 WBC 20.41 H (4.50-10.00) X 10*3/uL RBC 2.71 L (4.10-5.20) X 10*6/uL Hgb 10.5 L (12.0-15.0) g/dL Hct 28.8 L (37.2-46.3) % MCV 106.3 H (80.0-97.0) FL MCH 38.7 H (27.0-32.0) pg RDW 16.2 H (11.5-14.5) % Immature Gran # (0.00-0.04) X 10*3/uL Neutrophils # (1.80-7.70) X 10*3/uL Monocytes # (0.20-1.00) X 10*3/uL Basophils # (0.00-0.10) X 10*3/uL Sodium (135-145) mmol/L Chloride (96-109) mmol/L Carbon Dioxide (21.6-31.8) mmol/L Anion Gap (4.00-12.00) mmol/L Est GFR (CKD-EPI) (>=60) Glucose (70-110) mg/dL Calcium (8.7-10.3) mg/dL Total Bilirubin (0.3-1.2) mg/dL AST (13-35) U/L ALT (8-44) U/L Albumin (3.8-4.9) g/dL Globulin (1.6-3.3) g/dL Albumin/Globulin Ratio (1.60-3.17) Ratio Procalcitonin (0.02-0.50) ng/mL Assessment and Plan (1) Cirrhosis Narrative/Plan: 68-year-old female with alcohol abuse over the last 10 years duration admitting to at least 3 liquor drinks daily presenting with weakness, fatigue, decreased appetite and abdominal distention. CT abdomen pelvis showing ascites and nodular liver consistent with cirrhosis including portal hypertension. Patient with decompensated cirrhosis of the liver now with ascites secondary to alcohol abuse. Labs are consistent with alcohol cirrhosis of the liver. Will plan for paracentesis, hepatitis panel. Discussed with patient and at the bedside importance of alcohol abstinence. Recommend low-sodium diet. LFTs were trending up with acute alcohol hepatitis however have stabilized. No further gastroenterology workup for LFTs, they are stabilized. And secondary to acute alcohol hepatitis. Continue with alcohol abstinence and outpatient follow-up with gastroenterology Current Visit: Yes Status: Acute Code(s): K74.60 - UNSPECIFIED CIRRHOSIS OF LIVER SNOMED Code(s): 45734339 (2) Alcohol abuse Current Visit: Yes Status: Acute Code(s): F10.10 - ALCOHOL ABUSE, UNCOMPLICATED SNOMED Code(s): 22585548 (3) Ascites Narrative/Plan: 7 L removed by paracentesis. Transfuse albumin 50 g Current Visit: Yes Status: Acute Code(s): R18.8 - OTHER ASCITES SNOMED Code(s): 966519413 (4) Jaundice Current Visit: Yes Status: Acute Code(s): R17 - UNSPECIFIED JAUNDICE SNOMED Code(s): 43642251 (5) Hyponatremia Current Visit: Yes Status: Acute Code(s): E87.1 - HYPO-OSMOLALITY AND HYPONATREMIA SNOMED Code(s): 54655916 (6) Leukocytosis Narrative/Plan: Unclear etiology of leukocytosis. Patient afebrile. Last fluid culture from paracentesis with no growth. Patient to repeat paracentesis today with fluid culture and cell count. Infectious diseases following for leukocytosis, consider changing antibiotics from Zosyn to Rocephin for possible spontaneous bacterial peritonitis Current Visit: Yes Status: Acute Code(s): D72.829 - ELEVATED WHITE BLOOD CELL COUNT, UNSPECIFIED SNOMED Code(s): 231376247 Plan: 1. Continue symptomatic and supportive care 2. Daily CBC, CMP, INR 3. Consult to interventional radiology for paracentesis with fluid culture and cell count 4. Continue low-sodium diet 5. Fluid restriction 1500 mL daily 6. Continue Lasix 20 mg daily, spironolactone 50 mg daily 7. Discussed with patient and patient's importance of alcohol a bstinence 8. Infectious disease on consult for leukocytosis, consider changing Zosyn to Rocephin to cover for SBP 9. Outpatient follow-up with gastroenterology Thank you for this consultation, we will continue to follow. Dr. Osman Moss I agree with the dictator's note, documented as a scribe by Tonia Torre.
--- NOTE | 2024-04-11 15:10 | P.PN ---
Subjective Progress Note Date: 04/11/24 CHIEF COMPLAINT: abdominal ascites HISTORY OF PRESENT ILLNESS: Patient's abdomen is more distended today. She is scheduled for paracentesis. She denies any abdominal pain. Denies any nausea or vomiting. CT scan abdomen pelvis reports marked stable ascites. Cirrhotic liver. Questionable inflamed short small bowel loop in the mid abdomen. Patient reports having bowel movements. Denies any nausea or vomiting. Afebrile. WBC is 19 up to 20.4 Hgb 10.5 INR 1.6 total bilirubin 8.8 LFTs mildly elevated and staying at the same levels PHYSICAL EXAM: VITAL SIGNS: Reviewed. GENERAL: no acute distress. HEENT: scleral icterus ABDOMEN: Soft. distended. Fluid wave present. nontender. skin: Jaundiced ASSESSMENT: 1. Abdominal distention due to abdominal ascites from liver cirrhosis status post paracentesis during this admission 2. Elevated lipase level. No evidence of gallstones on CAT scan. No abdominal tenderness on exam 3. History of alcoholic liver cirrhosis 4. Portal venous hypertension with ascites 5. Severe protein calorie malnutrition 6. Inflamed short small bowel loop in the mid abdomen noted on CT PLAN: -Patient scheduled for paracentesis today -No surgical intervention planned -Recommend follow-up with GI service outpatient in regards to her liver cirrhosis -Antibiotics per ID service Physician Nutrition Coordinator note has been reviewed by physician. Signing provider agrees with the documented findings, assessment, and plan of care. Objective - Vital Signs Vital signs: Vital Signs Temp 98.1 F 04/11/24 07:06 Pulse 92 04/11/24 07:06 Resp 18 04/11/24 07:06 BP 111/50 04/11/24 07:06 Pulse Ox 94 L 04/11/24 07:06 FiO2 Intake & Output 04/10/24 04/11/24 04/11/24 18:59 06:59 18:59 Other: Voiding Method Toilet Toilet # Voids 3 2 - Labs CBC & Chem 7: 04/11/24 04:52 04/11/24 04:52 Labs: Abnormal Lab Results - Last 24 Hours (Table) 04/10/24 04/11/24 04/11/24 Range/Units 04:05 04:52 04:52 WBC 20.41 H (4.50-10.00) X 10*3/uL RBC 2.71 L (4.10-5.20) X 10*6/uL Hgb 10.5 L (12.0-15.0) g/dL Hct 28.8 L (37.2-46.3) % MCV 106.3 H (80.0-97.0) FL MCH 38.7 H (27.0-32.0) pg RDW 16.2 H (11.5-14.5) % Immature Gran # 0.51 H (0.00-0.04) X 10*3/uL Neutrophils # 15.97 H (1.80-7.70) X 10*3/uL Monocytes # 1.67 H (0.20-1.00) X 10*3/uL Basophils # 0.16 H (0.00-0.10) X 10*3/uL Target Cells 2+ A PT (10.0-12.5) sec INR (<1.2) Sodium 126 L (135-145) mmol/L Chloride 93 L (96-109) mmol/L Carbon Dioxide 19.5 L (21.6-31.8) mmol/L Anion Gap 13.50 H (4.00-12.00) mmol/L BUN 29.4 H (9.0-27.0) mg/dL Est GFR (CKD-EPI) 37 L (>=60) Calcium 8.0 L (8.7-10.3) mg/dL Total Bilirubin 8.8 H (0.3-1.2) mg/dL AST 122 H (13-35) U/L ALT 48 H (8-44) U/L Albumin 2.5 L (3.8-4.9) g/dL Globulin 4.1 H (1.6-3.3) g/dL Albumin/Globulin Ratio 0.61 L (1.60-3.17) Ratio Procalcitonin 0.94 H (0.02-0.50) ng/mL 04/11/24 Range/Units 11:01 WBC (4.50-10.00) X 10*3/uL RBC (4.10-5.20) X 10*6/uL Hgb (12.0-15.0) g/dL Hct (37.2-46.3) % MCV (80.0-97.0) FL MCH (27.0-32.0) pg RDW (11.5-14.5) % Immature Gran # (0.00-0.04) X 10*3/uL Neutrophils # (1.80-7.70) X 10*3/uL Monocytes # (0.20-1.00) X 10*3/uL Basophils # (0.00-0.10) X 10*3/uL Target Cells PT 16.6 H (10.0-12.5) sec INR 1.6 H (<1.2) Sodium (135-145) mmol/L Chloride (96-109) mmol/L Carbon Dioxide (21.6-31.8) mmol/L Anion Gap (4.00-12.00) mmol/L BUN (9.0-27.0) mg/dL Est GFR (CKD-EPI) (>=60) Calcium (8.7-10.3) mg/dL Total Bilirubin (0.3-1.2) mg/dL AST (13-35) U/L ALT (8-44) U/L Albumin (3.8-4.9) g/dL Globulin (1.6-3.3) g/dL Albumin/Globulin Ratio (1.60-3.17) Ratio Procalcitonin (0.02-0.50) ng/mL
--- NOTE | 2024-04-12 01:59 | PN ---
PROGRESS NOTE SUBJECTIVE: This is a 68-year-old white female whose bilirubin is down to 8.8, but her white count is up to 20,000. We have to do a paracentesis today with cultures as she has some kind of spontaneous bacterial peritonitis. She is on IV antibiotics, white count is up to 20,000. She has portal venous hypertension, protein-calorie malnutrition, distended bowel loops, alcoholic liver cirrhosis, elevated lipase. Follow up with GI service as an outpatient. Her diuretics were stopped a couple of days ago due to severe hypotension. Now, blood pressure 130/57, O2 95, temp 97.9, pulse 91, respiratory rate 18. Bilirubin as mentioned is 8.8. White count is 20K with elevated procalcitonin. Continue on IV antibiotics. Await further paracentesis cultures, liver failure secondary to cirrhosis, elevated bilirubin secondary to cirrhosis IV white count, unclear etiology. SBT possibility, rule out intraabdominal peritonitis. Continue current antibiotics until improved. PROGNOSIS: Guarded. MMODL / IJN: [id number] /
[2024-04-12 08:40] LABS: Basophils # (A) 0.13 X 10*3/uL (0.00-0.10); Basophils % (A) 0.6 %; Eosinophils # (A) 0.36 X 10*3/uL (0.04-0.35); Eosinophils % (A) 1.8 %; HCT 27.9 % (37.2-46.3); HGB 10.2 g/dL (12.0-15.0); Lymphocytes % (A) 8.8 %; MCH 39.1 pg (27.0-32.0); MCHC 36.6 g/dL (32.0-37.0); MCV 106.9 FL (80.0-97.0); Mean Platelet Volume 10.5 FL (9.5-12.2); Monocytes # (A) 1.58 X 10*3/uL (0.20-1.00); Monocytes % (A) 7.7 %; NRBC Per 100 WBC 0 X 10*3/uL (0.00-0.01); Neutrophils # (A) 15.95 X 10*3/uL (1.80-7.70); Neutrophils % (A) 78.3 %; Platelet Count 159 X 10*3/uL (140-440); RBC 2.61 X 10*6/uL (4.10-5.20); RDW 16.2 % (11.5-14.5)
[2024-04-12 09:25] LABS: ALT 54 U/L (8-44); AST 129 U/L (13-35); Albumin 2.5 g/dL (3.8-4.9); Alkaline Phosphatase 122 U/L (41-126); BUN/Creat Ratio 19.75 Ratio (12.00-20.00); Blood Urea Nitrogen 31.6 mg/dL (9.0-27.0); Calcium 8.1 mg/dL (8.7-10.3); Carbon Dioxide 18.6 mmol/L (21.6-31.8); Chloride 94 mmol/L (96-109); Globulin 4.2 g/dL (1.6-3.3); Glucose 105 mg/dL (70-110); Potassium 4.2 mmol/L (3.5-5.5); Sodium 126 mmol/L (135-145); Total Bilirubin 8.6 mg/dL (0.3-1.2); Total Protein 6.7 g/dL (6.2-8.2)
[2024-04-12] MEDS: ALBUMIN HUMAN 25% 50 ML in EMPTY BAG 1 BAG IVPB SCH (10:57)
--- NOTE | 2024-04-12 12:48 | P.PN ---
Subjective Progress Note Date: 04/12/24 Principal diagnosis: Ascites This is a pleasant 68-year-old female who presented to the emergency department for increased weakness, decreased appetite and abdominal distention. Patient has history of alcohol abuse and was drinking quite heavily. She admitted to drinking 3 back on squirts daily for at least 10 years. States she has not been drinking at all for the last 2 weeks duration. She had abdominal CT that reports cirrhosis of the liver, portal hypertension with moderate to severe ascites. She denies any previous history of liver disease, no history of hepatitis, no previous history of ascites. States that her abdomen has been distended for last 2 weeks duration with some discomfort. at the bedside states that he has not really noticed that she was jaundice but states that she has been sleeping quite a bit and had decreased appetite not eating or drinking much. Patient with elevated liver enzymes. She denies any abdominal pain at this time, no nausea or vomiting, no fevers or chills. 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 Patient is scheduled to undergo paracentesis today. She is otherwise without any complaints. Denies any abdominal pain, nausea or vomiting. Today's labs WBC 12.0 hemoglobin 11.9 hematocrit 32 platelet count 164,000 INR 1.65 sodium 130 potassium 3.9 BUN 21 creatinine 1.1 total bilirubin 6.8 AST 118 ALT 37 alkaline phosphatase 137 hepatitis panel nonreactive. 04/01/2024 Patient seen and examined this morning as a follow-up. States she is feeling a little better yesterday. Yesterday she underwent paracentesis with 7.5 L removed following with albumin. She denies any abdominal pain, nausea or vomiting. WBC 11.1 hemoglobin 11.3 platelet count 150,000 sodium 133 potassium 3.8 18.4 creatinine 1.0 total bilirubin 7.3 AST 102-day-old T 31 alkaline phosphatase 111 04/11/2024 Patient seen and examined today as a follow-up. There was no gastroenterology present in the hospital last week. Patient has remained in the hospital now for 2 weeks. 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 Also noted to have acute alcohol hepatitis with elevated liver enzymes now stabilizing. She had a paracentesis on 719 and since then has had increased abdominal distention and is scheduled to undergo paracentesis today. Patient also has been noted to have leukocytosis this admission with a white count of 20.2 today. She denies any abdominal pain, nausea or vomiting. She has been afebrile. Infectious diseases following and patient is on Zosyn. Fluid cultures from first paracentesis were negative. Cytology negative. 04/12/2024 Patient seen and examined today as a follow-up. She underwent paracentesis with 5.8 L removed. Today's labs WBC 20.4 hemoglobin 10.2 platelet count 159,000 sodium 126 potassium 4.2 BUN 31 creatinine 1.6 total bilirubin 8.6 AST 129 ALT 54 alkaline phosphatase 122 fluid cell count pending as well as fluid culture. No abdominal pain, nausea or vomiting. No other acute changes. Patient remains afebrile. Objective - Vital Signs Vital signs: Vital Signs Temp 97.5 F L 04/12/24 08:52 Pulse 84 04/12/24 10:26 Resp 16 04/12/24 10:26 BP 98/55 04/12/24 10:26 Pulse Ox 98 04/12/24 10:26 FiO2 Intake & Output 04/11/24 04/12/24 04/12/24 18:59 06:59 18:59 Weight 74.843 kg Other: # Voids 2 2 - Exam General appearance: The patient is alert, oriented, appears in no acute distress. HET: Head is normocephalic and atraumatic. Conjunctiva pink. Sclera icteric. Neck: Supple without lymphadenopathy. Abdomen: Soft, distended with ascites, nontender. Extremities: Normal skin color and turgor. No pedal edema Skin: No rashes, jaundice. Neurological: No focal deficits. Alert and oriented. - Labs CBC & Chem 7: 04/12/24 05:05 04/12/24 05:05 Labs: Abnormal Lab Results - Last 24 Hours (Table) 04/12/24 04/12/24 Range/Units 05:05 05:05 WBC 20.40 H (4.50-10.00) X 10*3/uL RBC 2.61 L (4.10-5.20) X 10*6/uL Hgb 10.2 L (12.0-15.0) g/dL Hct 27.9 L (37.2-46.3) % MCV 106.9 H (80.0-97.0) FL MCH 39.1 H (27.0-32.0) pg RDW 16.2 H (11.5-14.5) % Immature Gran # 0.58 H (0.00-0.04) X 10*3/uL Neutrophils # 15.95 H (1.80-7.70) X 10*3/uL Monocytes # 1.58 H (0.20-1.00) X 10*3/uL Eosinophils # 0.36 H (0.04-0.35) X 10*3/uL Basophils # 0.13 H (0.00-0.10) X 10*3/uL Sodium 126 L (135-145) mmol/L Chloride 94 L (96-109) mmol/L Carbon Dioxide 18.6 L (21.6-31.8) mmol/L Anion Gap 13.40 H (4.00-12.00) mmol/L BUN 31.6 H (9.0-27.0) mg/dL Creatinine 1.6 H (0.6-1.5) mg/dL Est GFR (CKD-EPI) 35 L (>=60) Calcium 8.1 L (8.7-10.3) mg/dL Total Bilirubin 8.6 H (0.3-1.2) mg/dL AST 129 H (13-35) U/L ALT 54 H (8-44) U/L Albumin 2.5 L (3.8-4.9) g/dL Globulin 4.2 H (1.6-3.3) g/dL Albumin/Globulin Ratio 0.60 L (1.60-3.17) Ratio Microbiology - Last 24 Hours (Table) 04/10/24 13:48 Blood Culture - Preliminary Blood Assessment and Plan (1) Cirrhosis Narrative/Plan: 68-year-old female with alcohol abuse over the last 10 years duration admitting to at least 3 liquor drinks daily presenting with weakness, fatigue, decreased appetite and abdominal distention. CT abdomen pelvis showing ascites and nodular liver consistent with cirrhosis including portal hypertension. Patient with decompensated cirrhosis of the liver now with ascites secondary to alcohol abuse. Labs are consistent with alcohol cirrhosis of the liver. Will plan for paracentesis, hepatitis panel. Discussed with patient and at the bedside importance of alcohol abstinence. Recommend low-sodium diet. LFTs were trending up with acute alcohol hepatitis however have stabilized. No further gastroenterology workup for LFTs, they are stabilized. And secondary to acute alcohol hepatitis. Continue with alcohol abstinence and outpatient follow-up with gastroenterology Current Visit: Yes Status: Acute Code(s): K74.60 - UNSPECIFIED CIRRHOSIS OF LIVER SNOMED Code(s): 65187185 (2) Alcohol abuse Current Visit: Yes Status: Acute Code(s): F10.10 - ALCOHOL ABUSE, UNCOMPLICATED SNOMED Code(s): 18999260 (3) Ascites Narrative/Plan: 7 L removed by paracentesis. Transfuse albumin 50 g Current Visit: Yes Status: Acute Code(s): R18.8 - OTHER ASCITES SNOMED Code(s): 235300921 (4) Jaundice Current Visit: Yes Status: Acute Code(s): R17 - UNSPECIFIED JAUNDICE SNOMED Code(s): 37343356 (5) Hyponatremia Current Visit: Yes Status: Acute Code(s): E87.1 - HYPO-OSMOLALITY AND HYPONATREMIA SNOMED Code(s): 09611716 (6) Leukocytosis Narrative/Plan: Unclear etiology of leukocytosis. Patient afebrile. Last fluid culture from paracentesis with no growth. Patient to repeat paracentesis today with fluid culture and cell count. Infectious diseases following for leukocytosis, consider changing antibiotics from Zosyn to Rocephin for possible spontaneous bacterial peritonitis Current Visit: Yes Status: Acute Code(s): D72.829 - ELEVATED WHITE BLOOD CELL COUNT, UNSPECIFIED SNOMED Code(s): 792251100 Plan: 1. Continue symptomatic and supportive care 2. Daily CBC, CMP, INR 3. Consult to interventional radiology for paracentesis with fluid culture and cell count 4. Continue low-sodium diet 5. Fluid restriction 1500 mL daily 6. Continue Lasix 20 mg daily, spironolactone 50 mg daily 7. Discussed with patient and patient's importance of alcohol abstinence 8. Infectious disease on consult for leukocytosis, consider changing Zosyn to Rocephin to cover for SBP 9. Give albumin post paracentesis 10. Outpatient follow-up with gastroenterology Thank you for this consultation, we will continue to follow. Dr. Osman Moss I agree with the dictator's note, documented as a scribe by Tonia Davila
--- NOTE | 2024-04-12 13:24 | US ---
EXAMINATION TYPE: US paracentesis abd w/image DATE OF EXAM: 04/12/2024 9:14 AM CLINICAL INDICATION:Female, 68 years old with history of ascites; COMPARISON: 03/31/2024 ATTENDING: Dr. Flako Quevedo PROCEDURE: Informed consent was obtained. The risks of the procedure were extensively explained incl uding risk of damage to surrounding bowel with perforation and need for additional procedures. Proced ure was performed in the ultrasound procedure suite. Ultrasound imaging of the abdomen demonstrate as citic fluid. An appropriate access site was localized to the right lower abdomen. Timeout was taken p er protocol. The skin was prepped and draped in the usual sterile fashion and then locally anesthetiz ed with 1% lidocaine. The peritoneal cavity was then accessed via a 5-Armenian one-step needle/cathete r. Approximately 5900 cc of clear straw-colored fluid was obtained. Samples were sent to the lab for analysis. Postprocedural imaging of the abdomen demonstrate a minimal amount of abdominal fluid. Patient tolerated procedure well without immediate complication. Hemostasis at the procedural site w as obtained with a sterile bandage placed. The patient was monitored in the holding area following th e procedure and was subsequently discharged in stable condition. IMPRESSION: Ultrasound guided paracentesis, with approximately 5900 cc of clear straw-colored fluid drained. Path ology results pending. No immediate complications were evident.
--- NOTE | 2024-04-12 13:25 | P.PN ---
Subjective Progress Note Date: 04/12/24 CHIEF COMPLAINT: abdominal ascites HISTORY OF PRESENT ILLNESS: Patient is status post paracentesis. No new complaints. Afebrile. WBC same at 20.4 total bili 8.6 PHYSICAL EXAM: VITAL SIGNS: Reviewed. GENERAL: no acute distress. HEENT: scleral icterus ABDOMEN: Soft. nontender. skin: Jaundiced ASSESSMENT: 1. Abdominal distention due to abdominal ascites from liver cirrhosis status post paracentesis x 2 2. Elevated lipase level. No evidence of gallstones on CAT scan. No abdominal tenderness on exam 3. History of alcoholic liver cirrhosis 4. Portal venous hypertension with ascites 5. Severe protein calorie malnutrition 6. Inflamed short small bowel loop in the mid abdomen noted on CT PLAN: -No surgical intervention planned -Recommend follow-up with GI service outpatient in regards to her liver cirrhosis -Antibiotics per ID service Physician Skein Drier note has been reviewed by physician. Signing provider agrees with the documented findings, assessment, and plan of care. Objective - Vital Signs Vital signs: Vital Signs Temp 97.5 F L 04/12/24 08:52 Pulse 84 04/12/24 10:26 Resp 16 04/12/24 10:26 BP 98/55 04/12/24 10:26 Pulse Ox 98 04/12/24 10:26 FiO2 Intake & Output 04/11/24 04/12/24 04/12/24 18:59 06:59 18:59 Weight 74.843 kg Other: # Voids 2 2 - Labs CBC & Chem 7: 04/12/24 05:05 04/12/24 05:05 Labs: Abnormal Lab Results - Last 24 Hours (Table) 04/12/24 04/12/24 Range/Units 05:05 05:05 WBC 20.40 H (4.50-10.00) X 10*3/uL RBC 2.61 L (4.10-5.20) X 10*6/uL Hgb 10.2 L (12.0-15.0) g/dL Hct 27.9 L (37.2-46.3) % MCV 106.9 H (80.0-97.0) FL MCH 39.1 H (27.0-32.0) pg RDW 16.2 H (11.5-14.5) % Immature Gran # 0.58 H (0.00-0.04) X 10*3/uL Neutrophils # 15.95 H (1.80-7.70) X 10*3/uL Monocytes # 1.58 H (0.20-1.00) X 10*3/uL Eosinophils # 0.36 H (0.04-0.35) X 10*3/uL Basophils # 0.13 H (0.00-0.10) X 10*3/uL Sodium 126 L (135-145) mmol/L Chloride 94 L (96-109) mmol/L Carbon Dioxide 18.6 L (21.6-31.8) mmol/L Anion Gap 13.40 H (4.00-12.00) mmol/L BUN 31.6 H (9.0-27.0) mg/dL Creatinine 1.6 H (0.6-1.5) mg/dL Est GFR (CKD-EPI) 35 L (>=60) Calcium 8.1 L (8.7-10.3) mg/dL Total Bilirubin 8.6 H (0.3-1.2) mg/dL AST 129 H (13-35) U/L ALT 54 H (8-44) U/L Albumin 2.5 L (3.8-4.9) g/dL Globulin 4.2 H (1.6-3.3) g/dL Albumin/Globulin Ratio 0.60 L (1.60-3.17) Ratio Microbiology - Last 24 Hours (Table) 04/10/24 13:48 Blood Culture - Preliminary Blood
--- NOTE | 2024-04-12 14:28 | P.PN ---
Subjective Progress Note Date: 04/11/24 Principal diagnosis: Reason for follow-up is leukocytosis Patient is a 68-year-old female with a past medical history significant for alcohol abuse presented to the hospital for evaluation of increased weakness decreased appetite abdominal distention patient be diagnosed with cirrhosis of the liver secondary to alcoholism did have paracentesis abdominal culture negative with worsening white count prompted this consultation. On today's evaluation that is 04/11/2024, the patient continues to be afebrile, the patient is on room air and breathing comfortably, the Pt denies having any chest pain or cough, the patient did have some abdominal distention but denies any abdominal pain no nausea no vomiting or diarrhea reported. Patient white count is 20.41, creatinine is 1.5 Objective - Vital Signs Vital signs: Vital Signs Temp 98.1 F 04/11/24 07:06 Pulse 92 04/11/24 07:06 Resp 18 04/11/24 07:06 BP 111/50 04/11/24 07:06 Pulse Ox 94 L 04/11/24 07:06 FiO2 Intake & Output 04/10/24 04/11/24 04/11/24 18:59 06:59 18:59 Other: Voiding Method Toilet Toilet # Voids 3 2 - Exam GENERAL DESCRIPTION: An elderly female lying in bed in no distress HEENT: Oral thrush RESPIRATORY SYSTEM: Unlabored breathing , decreased breath sounds at bases HEART: S1 S2 regular rate and rhythm , ABDOMEN: Soft , no tenderness EXTREMITIES: No edema feet - Labs CBC & Chem 7: 04/12/24 05:05 04/12/24 05:05 Labs: Abnormal Lab Results - Last 24 Hours (Table) 04/10/24 04/11/24 04/11/24 Range/Units 04:05 04:52 04:52 WBC 20.41 H (4.50-10.00) X 10*3/uL RBC 2.71 L (4.10-5.20) X 10*6/uL Hgb 10.5 L (12.0-15.0) g/dL Hct 28.8 L (37.2-46.3) % MCV 106.3 H (80.0-97.0) FL MCH 38.7 H (27.0-32.0) pg RDW 16.2 H (11.5-14.5) % Immature Gran # 0.51 H (0.00-0.04) X 10*3/uL Neutrophils # 15.97 H (1.80-7.70) X 10*3/uL Monocytes # 1.67 H (0.20-1.00) X 10*3/uL Basophils # 0.16 H (0.00-0.10) X 10*3/uL Target Cells 2+ A PT (10.0-12.5) sec INR (<1.2) Sodium 126 L (135-145) mmol/L Chloride 93 L (96-109) mmol/L Carbon Dioxide 19.5 L (21.6-31.8) mmol/L Anion Gap 13.50 H (4.00-12.00) mmol/L BUN 29.4 H (9.0-27.0) mg/dL Est GFR (CKD-EPI) 37 L (>=60) Calcium 8.0 L (8.7-10.3) mg/dL Total Bilirubin 8.8 H (0.3-1.2) mg/dL AST 122 H (13-35) U/L ALT 48 H (8-44) U/L Albumin 2.5 L (3.8-4.9) g/dL Globulin 4.1 H (1.6-3.3) g/dL Albumin/Globulin Ratio 0.61 L (1.60-3.17) Ratio Procalcitonin 0.94 H (0.02-0.50) ng/mL 04/11/24 Range/Units 11:01 WBC (4.50-10.00) X 10*3/uL RBC (4.10-5.20) X 10*6/uL Hgb (12.0-15.0) g/dL Hct (37.2-46.3) % MCV (80.0-97.0) FL MCH (27.0-32.0) pg RDW (11.5-14.5) % Immature Gran # (0.00-0.04) X 10*3/uL Neutrophils # (1.80-7.70) X 10*3/uL Monocytes # (0.20-1.00) X 10*3/uL Basophils # (0.00-0.10) X 10*3/uL Target Cells PT 16.6 H (10.0-12.5) sec INR 1.6 H (<1.2) Sodium (135-145) mmol/L Chloride (96-109) mmol/L Carbon Dioxide (21.6-31.8) mmol/L Anion Gap (4.00-12.00) mmol/L BUN (9.0-27.0) mg/dL Est GFR (CKD-EPI) (>=60) Calcium (8.7-10.3) mg/dL Total Bilirubin (0.3-1.2) mg/dL AST (13-35) U/L ALT (8-44) U/L Albumin (3.8-4.9) g/dL Globulin (1.6-3.3) g/dL Albumin/Globulin Ratio (1.60-3.17) Ratio Procalcitonin (0.02-0.50) ng/mL Assessment and Plan (1) Leukocytosis Current Visit: Yes Status: Acute Code(s): D72.829 - ELEVATED WHITE BLOOD CELL COUNT, UNSPECIFIED SNOMED Code(s): 568333664 (2) Oral thrush Current Visit: Yes Status: Acute Code(s): B37.0 - CANDIDAL STOMATITIS SNOMED Code(s): 01875696 Plan: 1patient with elevated white count and this patient presented to hospital with weakness decreased appetite did have a abdominal ascites from cirrhosis of the liver status post paracentesis and those culture has been negative patient did not have any fever during this hospital stay noticed to have mild thrush could be etiology of this elevated white count has no other obvious focus of infection 2-UA has been negative, CT of the chest no pneumonia however the patient did have elevated procalcitonin 3-patient did have CT abdominal pelvis with oral contrast which did shows significant ascites and possible inflammation of the small bowel with worsening of the white count 4-we are currently waiting for paracentesis the fluid should be sent for cell count Gram stain culture and continue with the Zosyn Dictation was produced using [employer] dictation software. please excuse any grammatical, word or spelling errors. Time with Patient: Less than 30
--- NOTE | 2024-04-12 14:29 | P.PN ---
Subjective Progress Note Date: 04/12/24 Principal diagnosis: Reason for follow-up is leukocytosis Patient is a 68-year-old female with a past medical history significant for alcohol abuse presented to the hospital for evaluation of increased weakness decreased appetite abdominal distention patient be diagnosed with cirrhosis of the liver secondary to alcoholism did have paracentesis abdominal culture negative with worsening white count prompted this consultation.Patient is status post paracentesis completed 04/12/2024 patient tolerated the procedure On today's evaluation 04/12/2024, Patient is afebrile patient is currently on room air and denies having any shortness of breath, the patient denies any chest pain or cough, the patient denies any nausea vomiting did not have any abdominal pain and no diarrhea. The patient white count is 20.40 creatinine is 1.6 blood culture repeat negative Objective - Vital Signs Vital signs: Vital Signs Temp 97.6 F 04/12/24 13:22 Pulse 85 04/12/24 13:22 Resp 18 04/12/24 13:22 BP 90/42 04/12/24 13:22 Pulse Ox 93 L 04/12/24 13:22 FiO2 Intake & Output 04/11/24 04/12/24 04/12/24 18:59 06:59 18:59 Intake Total 230 Balance 230 Weight 74.843 kg Intake: Oral 230 Other: # Voids 2 2 - Exam GENERAL DESCRIPTION: An elderly female lying in bed in no distress HEENT: Oral thrush RESPIRATORY SYSTEM: Unlabored breathing , decreased breath sounds at bases HEART: S1 S2 regular rate and rhythm , ABDOMEN: Soft , no tenderness EXTREMITIES: No edema feet - Labs CBC & Chem 7: 04/12/24 05:05 04/12/24 05:05 Labs: Abnormal Lab Results - Last 24 Hours (Table) 04/12/24 04/12/24 Range/Units 05:05 05:05 WBC 20.40 H (4.50-10.00) X 10*3/uL RBC 2.61 L (4.10-5.20) X 10*6/uL Hgb 10.2 L (12.0-15.0) g/dL Hct 27.9 L (37.2-46.3) % MCV 106.9 H (80.0-97.0) FL MCH 39.1 H (27.0-32.0) pg RDW 16.2 H (11.5-14.5) % Immature Gran # 0.58 H (0.00-0.04) X 10*3/uL Neutrophils # 15.95 H (1.80-7.70) X 10*3/uL Monocytes # 1.58 H (0.20-1.00) X 10*3/uL Eosinophils # 0.36 H (0.04-0.35) X 10*3/uL Basophils # 0.13 H (0.00-0.10) X 10*3/uL Sodium 126 L (135-145) mmol/L Chloride 94 L (96-109) mmol/L Carbon Dioxide 18.6 L (21.6-31.8) mmol/L Anion Gap 13.40 H (4.00-12.00) mmol/L BUN 31.6 H (9.0-27.0) mg/dL Creatinine 1.6 H (0.6-1.5) mg/dL Est GFR (CKD-EPI) 35 L (>=60) Calcium 8.1 L (8.7-10.3) mg/dL Total Bilirubin 8.6 H (0.3-1.2) mg/dL AST 129 H (13-35) U/L ALT 54 H (8-44) U/L Albumin 2.5 L (3.8-4.9) g/dL Globulin 4.2 H (1.6-3.3) g/dL Albumin/Globulin Ratio 0.60 L (1.60-3.17) Ratio Microbiology - Last 24 Hours (Table) 04/10/24 13:48 Blood Culture - Preliminary Blood Assessment and Plan (1) Leukocytosis Current Visit: Yes Status: Acute Code(s): D72.829 - ELEVATED WHITE BLOOD CELL COUNT, UNSPECIFIED SNOMED Code(s): 618332160 (2) Oral thrush Current Visit: Yes Status: Acute Code(s): B37.0 - CANDIDAL STOMATITIS SNOMED Code(s): 91030528 Plan: 1patient with elevated white count and this patient presented to hospital with weakness decreased appetite did have a abdominal ascites from cirrhosis of the liver status post paracentesis and those culture has been negative patient did not have any fever during this hospital stay noticed to have mild thrush could be etiology of this elevated white count has no other obvious focus of infection 2-UA has been negative, CT of the chest no pneumonia however the patient did have elevated procalcitonin 3-patient did have CT abdominal pelvis with oral contrast which did shows significant ascites and possible inflammation of the small bowel with worsening of the white count 4-patient is status post paracentesis completed this afternoon we are currently waiting for cell count differential and culture will continue with the Zosyn adjust diabetic further on the basis of culture and clinical response Dictation was produced using [employer] dictation software. please excuse any grammatical, word or spelling errors. Time with Patient: Less than 30
[2024-04-12 16:15] LABS: Appearance,BF Cloudy (Clear)
--- NOTE | 2024-04-13 02:00 | PN ---
PROGRESS NOTE SUBJECTIVE: Liver cirrhosis, alcoholism, dehydration, worsening renal function due to dehydration. Diuretics were stopped. Given fluids, bilirubin is down to 8.5. She had paracentesis done today for leukocytosis, keeps in planning to [address] We will check Dr. Dye when the fluid to evaluate its quality, but does not have a lot of white cells and will wait for final cultures. Continue on current treatment and hydration. PROGNOSIS: Guarded. Condition guarded. Please see further orders, await GI recommendations. MMODL / IJN: [id number] /
[2024-04-13 10:36] LABS: Basophils # (A) 0.17 X 10*3/uL (0.00-0.10); Basophils % (A) 0.9 %; Eosinophils # (A) 0.43 X 10*3/uL (0.04-0.35); Eosinophils % (A) 2.2 %; HCT 27.7 % (37.2-46.3); HGB 10.1 g/dL (12.0-15.0); Lymphocytes % (A) 8.6 %; MCH 38.5 pg (27.0-32.0); MCHC 36.5 g/dL (32.0-37.0); MCV 105.7 FL (80.0-97.0); Mean Platelet Volume 10.3 FL (9.5-12.2); Monocytes # (A) 1.42 X 10*3/uL (0.20-1.00); Monocytes % (A) 7.2 %; NRBC Per 100 WBC 0 X 10*3/uL (0.00-0.01); Neutrophils # (A) 15.56 X 10*3/uL (1.80-7.70); Neutrophils % (A) 78.8 %; Platelet Count 153 X 10*3/uL (140-440); RBC 2.62 X 10*6/uL (4.10-5.20); RDW 16.3 % (11.5-14.5); WBC 19.73 X 10*3/uL (4.50-10.00)
[2024-04-13 11:13] LABS: ALT 51 U/L (8-44); AST 126 U/L (13-35); Albumin 2.8 g/dL (3.8-4.9); Albumin/Globulin Ratio 0.76 Ratio (1.60-3.17); Alkaline Phosphatase 113 U/L (41-126); BUN/Creat Ratio 19.44 Ratio (12.00-20.00); Blood Urea Nitrogen 31.1 mg/dL (9.0-27.0); Calcium 8.2 mg/dL (8.7-10.3); Carbon Dioxide 19.3 mmol/L (21.6-31.8); Chloride 94 mmol/L (96-109); Globulin 3.7 g/dL (1.6-3.3); Glucose 99 mg/dL (70-110); Potassium 4.2 mmol/L (3.5-5.5); Sodium 127 mmol/L (135-145); Total Protein 6.5 g/dL (6.2-8.2)
--- NOTE | 2024-04-13 12:29 | PN ---
PROGRESS NOTE Her bilirubin is going down, was 8.5 yesterday, where she was taken to hospital after a 2nd paracentesis due to elevated white count of 20,000. Waiting for final pathology, cell counts, etc. Cultures from the abdomen to make sure she has no infection there. For discharge, Dr. Dye has kept her on IV Unasyn. OBJECTIVE: ABDOMEN: Soft. CARDIOVASCULAR: S1, S2. PSYCH: Fair mood and affect. NEUROLOGIC: Alert and oriented x3. ASSESSMENT: Cirrhosis, leukocytosis of unclear etiology, atelectasis of the lungs. Waiting for final cultures to be done. Infectious Disease workup. Possibly go home once cleared by Infectious Disease. Prognosis guarded. MMODL / IJN: [id number] /
--- NOTE | 2024-04-13 12:59 | P.PN ---
Subjective Progress Note Date: 04/13/24 CHIEF COMPLAINT: abdominal ascites HISTORY OF PRESENT ILLNESS: Patient sitting up in bed and eating a breakfast sandwich. He has no abdominal pain. Denies any nausea or vomiting. No new complaints. Afebrile. WBC is down from 20-19.73 PHYSICAL EXAM: VITAL SIGNS: Reviewed. GENERAL: no acute distress. HEENT: scleral icterus ABDOMEN: Soft. nontender. skin: Jaundiced ASSESSMENT: 1. Abdominal distention due to abdominal ascites from liver cirrhosis status post paracentesis x 2 2. Elevated lipase level. No evidence of gallstones on CAT scan. No abdominal tenderness on exam 3. History of alcoholic liver cirrhosis 4. Portal venous hypertension with ascites 5. Severe protein calorie malnutrition 6. Inflamed short small bowel loop in the mid abdomen noted on CT PLAN: -No surgical intervention planned -Recommend follow-up with GI service outpatient in regards to her liver cirrhos is -Antibiotics per ID service Physician Wardrobe Assistant note has been reviewed by physician. Signing provider agrees with the documented findings, assessment, and plan of care. Objective - Vital Signs Vital signs: Vital Signs Temp 98.2 F 04/13/24 07:21 Pulse 91 04/13/24 07:21 Resp 17 04/13/24 07:21 BP 101/58 04/13/24 07:21 Pulse Ox 96 04/13/24 07:21 FiO2 Intake & Output 04/12/24 04/13/24 04/13/24 18:59 06:59 18:59 Intake Total 230 Balance 230 Weight 74.843 kg Intake: Oral 230 Other: Voiding Method Toilet # Voids 3 2 # Bowel Movements 1 - Labs CBC & Chem 7: 04/13/24 06:37 04/13/24 06:37 Labs: Abnormal Lab Results - Last 24 Hours (Table) 04/12/24 04/13/24 04/13/24 Range/Units 10:27 01:12 06:37 WBC 19.73 H (4.50-10.00) X 10*3/uL RBC 2.62 L (4.10-5.20) X 10*6/uL Hgb 10.1 L (12.0-15.0) g/dL Hct 27.7 L (37.2-46.3) % MCV 105.7 H (80.0-97.0) FL MCH 38.5 H (27.0-32.0) pg RDW 16.3 H (11.5-14.5) % Immature Gran # 0.45 H (0.00-0.04) X 10*3/uL Neutrophils # 15.56 H (1.80-7.70) X 10*3/uL Monocytes # 1.42 H (0.20-1.00) X 10*3/uL Eosinophils # 0.43 H (0.04-0.35) X 10*3/uL Basophils # 0.17 H (0.00-0.10) X 10*3/uL Sodium (135-145) mmol/L Chloride (96-109) mmol/L Carbon Dioxide (21.6-31.8) mmol/L Anion Gap (4.00-12.00) mmol/L BUN (9.0-27.0) mg/dL Creatinine (0.6-1.5) mg/dL Est GFR (CKD-EPI) (>=60) Calcium (8.7-10.3) mg/dL Total Bilirubin (0.3-1.2) mg/dL AST (13-35) U/L ALT (8-44) U/L Albumin (3.8-4.9) g/dL Globulin (1.6-3.3) g/dL Albumin/Globulin Ratio (1.60-3.17) Ratio Procalcitonin 1.02 H (0.02-0.50) ng/mL Fluid Appearance Cloudy A (Clear) 04/13/24 Range/Units 06:37 WBC (4.50-10.00) X 10*3/uL RBC (4.10-5.20) X 10*6/uL Hgb (12.0-15.0) g/dL Hct (37.2-46.3) % MCV (80.0-97.0) FL MCH (27.0-32.0) pg RDW (11.5-14.5) % Immature Gran # (0.00-0.04) X 10*3/uL Neutrophils # (1.80-7.70) X 10*3/uL Monocytes # (0.20-1.00) X 10*3/uL Eosinophils # (0.04-0.35) X 10*3/uL Basophils # (0.00-0.10) X 10*3/uL Sodium 127 L (135-145) mmol/L Chloride 94 L (96-109) mmol/L Carbon Dioxide 19.3 L (21.6-31.8) mmol/L Anion Gap 13.70 H (4.00-12.00) mmol/L BUN 31.1 H (9.0-27.0) mg/dL Creatinine 1.6 H (0.6-1.5) mg/dL Est GFR (CKD-EPI) 35 L (>=60) Calcium 8.2 L (8.7-10.3) mg/dL Total Bilirubin 9.0 H (0.3-1.2) mg/dL AST 126 H (13-35) U/L ALT 51 H (8-44) U/L Albumin 2.8 L (3.8-4.9) g/dL Globulin 3.7 H (1.6-3.3) g/dL Albumin/Globulin Ratio 0.76 L (1.60-3.17) Ratio Procalcitonin (0.02-0.50) ng/mL Fluid Appearance (Clear) Microbiology - Last 24 Hours (Table) 04/12/24 10:27 Gram Stain - Preliminary Ascites Fluid Body Fluid Culture - Preliminary 04/10/24 13:48 Blood Culture - Preliminary Blood
--- NOTE | 2024-04-13 16:49 | P.PN ---
Subjective Progress Note Date: 04/13/24 Principal diagnosis: Ascites This is a pleasant 68-year-old female who presented to the emergency department for increased weakness, decreased appetite and abdominal distention. Patient has history of alcohol abuse and was drinking quite heavily. She admitted to drinking 3 back on squirts daily for at least 10 years. States she has not been drinking at all for the last 2 weeks duration. She had abdominal CT that reports cirrhosis of the liver, portal hypertension with moderate to severe ascites. She denies any previous history of liver disease, no history of hepatitis, no previous history of ascites. States that her abdomen has been distended for last 2 weeks duration with some discomfort. at the bedside states that he has not really noticed that she was jaundice but states that she has been sleeping quite a bit and had decreased appetite not eating or drinking much. Patient with elevated liver enzymes. She denies any abdominal pain at this time, no nausea or vomiting, no fevers or chills. 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 Patient is scheduled to undergo paracentesis today. She is otherwise without any complaints. Denies any abdominal pain, nausea or vomiting. Today's labs WBC 12.0 hemoglobin 11.9 hematocrit 32 platelet count 164,000 INR 1.65 sodium 130 potassium 3.9 BUN 21 creatinine 1.1 total bilirubin 6.8 AST 118 ALT 37 alkaline phosphatase 137 hepatitis panel nonreactive. 04/01/2024 Patient seen and examined this morning as a follow-up. States she is feeling a little better yesterday. Yesterday she underwent paracentesis with 7.5 L removed following with albumin. She denies any abdominal pain, nausea or vomiting. WBC 11.1 hemoglobin 11.3 platelet count 150,000 sodium 133 potassium 3.8 18.4 creatinine 1.0 total bilirubin 7.3 AST 102-day-old T 31 alkaline phosphatase 111 04/11/2024 Patient seen and examined today as a follow-up. There was no gastroenterology present in the hospital last week. Patient has remained in the hospital now for 2 weeks. 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 Also noted to have acute alcohol hepatitis with elevated liver enzymes now stabilizing. She had a paracentesis on 719 and since then has had increased abdominal distention and is scheduled to undergo paracentesis today. Patient also has been noted to have leukocytosis this admission with a white count of 20.2 today. She denies any abdominal pain, nausea or vomiting. She has been afebrile. Infectious diseases following and patient is on Zosyn. Fluid cultures from first paracentesis were negative. Cytology negative. 04/12/2024 Patient seen and examined today as a follow-up. She underwent paracentesis with 5.8 L removed. Today's labs WBC 20.4 hemoglobin 10.2 platelet count 159,000 sodium 126 potassium 4.2 BUN 31 creatinine 1.6 total bilirubin 8.6 AST 129 ALT 54 alkaline phosphatase 122 fluid cell count pending as well as fluid culture. No abdominal pain, nausea or vomiting. No other acute changes. Patient remains afebrile. 04/13/2024 Seen and examined today as a follow-up. She is without any complaints. No abdominal pain, nausea or vomiting. She is afebrile. LFTs stable, total bilirubin 9.0 AST 126 ALT 51 alkaline phosphatase 113. Fluid culture currently pending, 24 hours no growth. Fluid cell count not consistent with SBP Objective - Vital Signs Vital signs: Vital Signs Temp 98.2 F 04/13/24 07:21 Pulse 91 04/13/24 07:21 Resp 17 04/13/24 07:21 BP 101/58 04/13/24 07:21 Pulse Ox 96 04/13/24 07:21 FiO2 Intake & Output 04/12/24 04/13/24 04/13/24 18:59 06:59 18:59 Intake Total 230 Balance 230 Weight 74.843 kg Intake: Oral 230 Other: Voiding Method Toilet # Voids 3 2 # Bowel Movements 1 - Exam General appearance: The patient is alert, oriented, appears in no acute distress. HET: Head is normocephalic and atraumatic. Conjunctiva pink. Sclera icteric. Neck: Supple without lymphadenopathy. Abdomen: Soft, nondistended, nontender. Extremities: Normal skin color and turgor. No pedal edema Skin: No rashes, jaundice. Neurological: No focal deficits. Alert and oriented. - Labs CBC & Chem 7: 04/13/24 06:37 04/13/24 06:37 Labs: Abnormal Lab Results - Last 24 Hours (Table) 0704/12/24 04/13/24 Range/Units 05:05 10:27 01:12 Sodium 126 L (135-145) mmol/L Chloride 94 L (96-109) mmol/L Carbon Dioxide 18.6 L (21.6-31.8) mmol/L Anion Gap 13.40 H (4.00-12.00) mmol/L BUN 31.6 H (9.0-27.0) mg/dL Creatinine 1.6 H (0.6-1.5) mg/dL Est GFR (CKD-EPI) 35 L (>=60) Calcium 8.1 L (8.7-10.3) mg/dL Total Bilirubin 8.6 H (0.3-1.2) mg/dL AST 129 H (13-35) U/L ALT 54 H (8-44) U/L Albumin 2.5 L (3.8-4.9) g/dL Globulin 4.2 H (1.6-3.3) g/dL Albumin/Globulin Ratio 0.60 L (1.60-3.17) Ratio Procalcitonin 1.02 H (0.02-0.50) ng/mL Fluid Appearance Cloudy A (Clear) Microbiology - Last 24 Hours (Table) 04/12/24 10:27 Gram Stain - Preliminary Ascites Fluid Body Fluid Culture - Preliminary 04/10/24 13:48 Blood Culture - Preliminary Blood Assessment and Plan (1) Cirrhosis Narrative/Plan: 68-year-old female with alcohol abuse over the last 10 years duration admitting to at least 3 liquor drinks daily presenting with weakness, fatigue, decreased appetite and abdominal distention. CT abdomen pelvis showing ascites and nodular liver consistent with cirrhosis including portal hypertension. Patient with decompensated cirrhosis of the liver now with ascites secondary to alcohol abuse. Labs are consistent with alcohol cirrhosis of the liver. Will plan for paracentesis, hepatitis panel. Discussed with patient and at the bedside importance of alcohol abstinence. Recommend low-sodium diet. LFTs were trending up with acute alcohol hepatitis however have stabilized. No further gastroenterology workup for LFTs, they are stabilized. And secondary to acute alcohol hepatitis. Continue with alcohol abstinence and outpatient follow-up with gastroenterology Current Visit: Yes Status: Acute Code(s): K74.60 - UNSPECIFIED CIRRHOSIS OF LIVER SNOMED Code(s): 13812658 (2) Alcohol abuse Current Visit: Yes Status: Acute Code(s): F10.10 - ALCOHOL ABUSE, UNCOMPLICATED SNOMED Code(s): 00615680 (3) Ascites Narrative/Plan: 7 L removed by paracentesis. Transfuse albumin 50 g Current Visit: Yes Status: Acute Code(s): R18.8 - OTHER ASCITES SNOMED Code(s): 948543652 (4) Jaundice Current Visit: Yes Status: Acute Code(s): R17 - UNSPECIFIED JAUNDICE SNOMED Code(s): 10936760 (5) Hyponatremia Current Visit: Yes Status: Acute Code(s): E87.1 - HYPO-OSMOLALITY AND HYPONATREMIA SNOMED Code(s): 05000221 (6) Leukocytosis Narrative/Plan: Unclear etiology of leukocytosis. Patient afebrile. Last fluid culture from paracentesis with no growth. Patient to repeat paracentesis today with fluid culture and cell count. Infectious diseases following for leukocytosis. Repeat fluid studies cell count not consistent with spontaneous bacterial peritonitis, fluid cultures currently pending but negative to date. Current Visit: Yes Status: Acute Code(s): D72.829 - ELEVATED WHITE BLOOD CELL COUNT, UNSPECIFIED SNOMED Code(s): 960267936 Plan: 1. Continue symptomatic and supportive care 2. Continue low-sodium diet 3. Fluid restriction 1500 mL daily 4. Continue Lasix 20 mg daily, spironolactone 50 mg daily 5. Discussed with patient and patient's importance of alcohol abstinence 6. Infectious disease on consult for leukocytosis continue with their recommendations 7. As far as patient's underlying liver disease patient is stable with current liver function tests and may be discharged when medically stable 8. Outpatient follow-up with gastroenterology Thank you for this consultation, we will continue to follow. Dr. Osman Moss I agree with the dictator's note, documented as a scribe by Tonia Torre.
--- NOTE | 2024-04-14 08:38 | P.PN ---
Subjective Progress Note Date: 04/13/24 Principal diagnosis: Reason for follow-up is leukocytosis Patient is a 68-year-old female with a past medical history significant for alcohol abuse presented to the hospital for evaluation of increased weakness decreased appetite abdominal distention patient be diagnosed with cirrhosis of the liver secondary to alcoholism did have paracentesis abdominal culture negative with worsening white count prompted this consultation.Patient is status post paracentesis completed 04/12/2024 patient tolerated the procedure On today's evaluation that is 04/13/2024, patient has been afebrile, patient is breathing comfortably and is currently on room air, patient denies having any significant cough no chest pain shortness of breath, patient denies nausea vomiting abdominal distention and pain has slightly decreased in intensity. Patient white count is down to 19.7, -1.6 peritoneal fluid was cloudy with 232 WBCs cultures are pending Objective - Vital Signs Vital signs: Vital Signs Temp 98.2 F 04/13/24 07:21 Pulse 91 04/13/24 07:21 Resp 17 04/13/24 07:21 BP 101/58 04/13/24 07:21 Pulse Ox 96 04/13/24 07:21 FiO2 Intake & Output 04/12/24 04/13/24 04/13/24 18:59 06:59 18:59 Intake Total 230 Balance 230 Weight 74.843 kg Intake: Oral 230 Other: Voiding Method Toilet # Voids 3 2 # Bowel Movements 1 - Exam GENERAL DESCRIPTION: An elderly female lying in bed in no distress HEENT: Oral thrush RESPIRATORY SYSTEM: Unlabored breathing , decreased breath sounds at bases HEART: S1 S2 regular rate and rhythm , ABDOMEN: Soft , no tenderness EXTREMITIES: No edema feet - Labs CBC & Chem 7: 04/13/24 06:37 04/13/24 06:37 Labs: Abnormal Lab Results - Last 24 Hours (Table) 04/12/24 04/13/24 04/13/24 Range/Units 10:27 01:12 06:37 WBC 19.73 H (4.50-10.00) X 10*3/uL RBC 2.62 L (4.10-5.20) X 10*6/uL Hgb 10.1 L (12.0-15.0) g/dL Hct 27.7 L (37.2-46.3) % MCV 105.7 H (80.0-97.0) FL MCH 38.5 H (27.0-32.0) pg RDW 16.3 H (11.5-14.5) % Immature Gran # 0.45 H (0.00-0.04) X 10*3/uL Neutrophils # 15.56 H (1.80-7.70) X 10*3/uL Monocytes # 1.42 H (0.20-1.00) X 10*3/uL Eosinophils # 0.43 H (0.04-0.35) X 10*3/uL Basophils # 0.17 H (0.00-0.10) X 10*3/uL Sodium (135-145) mmol/L Chloride (96-109) mmol/L Carbon Dioxide (21.6-31.8) mmol/L Anion Gap (4.00-12.00) mmol/L BUN (9.0-27.0) mg/dL Creatinine (0.6-1.5) mg/dL Est GFR (CKD-EPI) (>=60) Calcium (8.7-10.3) mg/dL Total Bilirubin (0.3-1.2) mg/dL AST (13-35) U/L ALT (8-44) U/L Albumin (3.8-4.9) g/dL Globulin (1.6-3.3) g/dL Albumin/Globulin Ratio (1.60-3.17) Ratio Procalcitonin 1.02 H (0.02-0.50) ng/mL Fluid Appearance Cloudy A (Clear) 04/13/24 Range/Units 06:37 WBC (4.50-10.00) X 10*3/uL RBC (4.10-5.20) X 10*6/uL Hgb (12.0-15.0) g/dL Hct (37.2-46.3) % MCV (80.0-97.0) FL MCH (27.0-32.0) pg RDW (11.5-14.5) % Immature Gran # (0.00-0.04) X 10*3/uL Neutrophils # (1.80-7.70) X 10*3/uL Monocytes # (0.20-1.00) X 10*3/uL Eosinophils # (0.04-0.35) X 10*3/uL Basophils # (0.00-0.10) X 10*3/uL Sodium 127 L (135-145) mmol/L Chloride 94 L (96-109) mmol/L Carbon Dioxide 19.3 L (21.6-31.8) mmol/L Anion Gap 13.70 H (4.00-12.00) mmol/L BUN 31.1 H (9.0-27.0) mg/dL Creatinine 1.6 H (0.6-1.5) mg/dL Est GFR (CKD-EPI) 35 L (>=60) Calcium 8.2 L (8.7-10.3) mg/dL Total Bilirubin 9.0 H (0.3-1.2) mg/dL AST 126 H (13-35) U/L ALT 51 H (8-44) U/L Albumin 2.8 L (3.8-4.9) g/dL Globulin 3.7 H (1.6-3.3) g/dL Albumin/Globulin Ratio 0.76 L (1.60-3.17) Ratio Procalcitonin (0.02-0.50) ng/mL Fluid Appearance (Clear) Microbiology - Last 24 Hours (Table) 04/12/24 10:27 Gram Stain - Preliminary Ascites Fluid Body Fluid Culture - Preliminary 04/10/24 13:48 Blood Culture - Preliminary Blood Assessment and Plan (1) Leukocytosis Current Visit: Yes Status: Acute Code(s): D72.829 - ELEVATED WHITE BLOOD CELL COUNT, UNSPECIFIED SNOMED Code(s): 779428214 (2) Oral thrush Current Visit: Yes Status: Acute Code(s): B37.0 - CANDIDAL STOMATITIS SNOMED Code(s): 03416613 Plan: 1patient with elevated white count and this patient presented to hospital with weakness decreased appetite did have a abdominal ascites from cirrhosis of the liver status post paracentesis and those culture has been negative patient did not have any fever during this hospital stay noticed to have mild thrush could be etiology of this elevated white count has no other obvious focus of infection 2-UA has been negative, CT of the chest no pneumonia however the patient did have elevated procalcitonin 3-patient did have CT abdominal pelvis with oral contrast which did shows significant ascites and possible inflammation of the small bowel with worsening of the white count 4-patient is status post paracentesis did have cloudy peritoneal fluid and mild elevated white count we will wait for the culture to finalize continue with Zosyn and monitor clinical course closely Dictation was produced using [employer] dictation software. please excuse any grammatical, word or spelling errors. Time with Patient: Less than 30
--- NOTE | 2024-04-14 10:12 | P.PN ---
Subjective Progress Note Date: 04/14/24 Principal diagnosis: Ascites This is a pleasant 68-year-old female who presented to the emergency department for increased weakness, decreased appetite and abdominal distention. Patient has history of alcohol abuse and was drinking quite heavily. She admitted to drinking 3 back on squirts daily for at least 10 years. States she has not been drinking at all for the last 2 weeks duration. She had abdominal CT that reports cirrhosis of the liver, portal hypertension with moderate to severe ascites. She denies any previous history of liver disease, no history of hepatitis, no previous history of ascites. States that her abdomen has been distended for last 2 weeks duration with some discomfort. at the bedside states that he has not really noticed that she was jaundice but states that she has been sleeping quite a bit and had decreased appetite not eating or drinking much. Patient with elevated liver enzymes. She denies any abdominal pain at this time, no nausea or vomiting, no fevers or chills. 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 Patient is scheduled to undergo paracentesis today. She is otherwise without any complaints. Denies any abdominal pain, nausea or vomiting. Today's labs WBC 12.0 hemoglobin 11.9 hematocrit 32 platelet count 164,000 INR 1.65 sodium 130 potassium 3.9 BUN 21 creatinine 1.1 total bilirubin 6.8 AST 118 ALT 37 alkaline phosphatase 137 hepatitis panel nonreactive. 04/01/2024 Patient seen and examined this morning as a follow-up. States she is feeling a little better yesterday. Yesterday she underwent paracentesis with 7.5 L removed following with albumin. She denies any abdominal pain, nausea or vomiting. WBC 11.1 hemoglobin 11.3 platelet count 150,000 sodium 133 potassium 3.8 18.4 creatinine 1.0 total bilirubin 7.3 AST 102-day-old T 31 alkaline phosphatase 111 04/11/2024 Patient seen and examined today as a follow-up. There was no gastroenterology present in the hospital last week. Patient has remained in the hospital now for 2 weeks. 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 Also noted to have acute alcohol hepatitis with elevated liver enzymes now stabilizing. She had a paracentesis on 719 and since then has had increased abdominal distention and is scheduled to undergo paracentesis today. Patient also has been noted to have leukocytosis this admission with a white count of 20.2 today. She denies any abdominal pain, nausea or vomiting. She has been afebrile. Infectious diseases following and patient is on Zosyn. Fluid cultures from first paracentesis were negative. Cytology negative. 04/12/2024 Patient seen and examined today as a follow-up. She underwent paracentesis with 5.8 L removed. Today's labs WBC 20.4 hemoglobin 10.2 platelet count 159,000 sodium 126 potassium 4.2 BUN 31 creatinine 1.6 total bilirubin 8.6 AST 129 ALT 54 alkaline phosphatase 122 fluid cell count pending as well as fluid culture. No abdominal pain, nausea or vomiting. No other acute changes. Patient remains afebrile. 04/13/2024 Seen and examined today as a follow-up. She is without any complaints. No abdominal pain, nausea or vomiting. She is afebrile. LFTs stable, total bilirubin 9.0 AST 126 ALT 51 alkaline phosphatase 113. Fluid culture currently pending, 24 hours no growth. Fluid cell count not consistent with SBP 04/14/2024 Patient is seen and examined today as a follow-up. No acute changes through the night. She remains afebrile. Fluid culture with no growth at 48 hours. Today's labs currently pending. Denies abdominal pain, nausea or vomiting. No shortness of breath or chest pain. Objective - Vital Signs Vital signs: Vital Signs Temp 97.6 F 04/14/24 06:54 Pulse 91 04/14/24 08:10 Resp 18 04/14/24 08:10 BP 98/50 04/14/24 06:54 Pulse Ox 94 L 04/14/24 06:54 FiO2 Intake & Output 04/13/24 04/14/24 04/14/24 18:59 06:59 18:59 Other: Voiding Method Toilet Toilet # Voids 3 1 - Exam General appearance: The patient is alert, oriented, appears in no acute distr ess. HET: Head is normocephalic and atraumatic. Conjunctiva pink. Sclera icteric. Neck: Supple without lymphadenopathy. Abdomen: Soft, nondistended, nontender. Extremities: Normal skin color and turgor. No pedal edema Skin: No rashes, jaundice. Neurological: No focal deficits. Alert and oriented. - Labs CBC & Chem 7: 04/14/24 06:17 04/14/24 06:17 Labs: Abnormal Lab Results - Last 24 Hours (Table) 04/13/24 04/13/24 Range/Units 06:37 06:37 WBC 19.73 H (4.50-10.00) X 10*3/uL RBC 2.62 L (4.10-5.20) X 10*6/uL Hgb 10.1 L (12.0-15.0) g/dL Hct 27.7 L (37.2-46.3) % MCV 105.7 H (80.0-97.0) FL MCH 38.5 H (27.0-32.0) pg RDW 16.3 H (11.5-14.5) % Immature Gran # 0.45 H (0.00-0.04) X 10*3/uL Neutrophils # 15.56 H (1.80-7.70) X 10*3/uL Monocytes # 1.42 H (0.20-1.00) X 10*3/uL Eosinophils # 0.43 H (0.04-0.35) X 10*3/uL Basophils # 0.17 H (0.00-0.10) X 10*3/uL Sodium 127 L (135-145) mmol/L Chloride 94 L (96-109) mmol/L Carbon Dioxide 19.3 L (21.6-31.8) mmol/L Anion Gap 13.70 H (4.00-12.00) mmol/L BUN 31.1 H (9.0-27.0) mg/dL Creatinine 1.6 H (0.6-1.5) mg/dL Est GFR (CKD-EPI) 35 L (>=60) Calcium 8.2 L (8.7-10.3) mg/dL Total Bilirubin 9.0 H (0.3-1.2) mg/dL AST 126 H (13-35) U/L ALT 51 H (8-44) U/L Albumin 2.8 L (3.8-4.9) g/dL Globulin 3.7 H (1.6-3.3) g/dL Albumin/Globulin Ratio 0.76 L (1.60-3.17) Ratio Microbiology - Last 24 Hours (Table) 04/12/24 10:27 Gram Stain - Preliminary Ascites Fluid Body Fluid Culture - Preliminary 04/10/24 13:48 Blood Culture - Preliminary Blood Assessment and Plan (1) Cirrhosis Narrative/Plan: 68-year-old female with alcohol abuse over the last 10 years duration admitting to at least 3 liquor drinks daily presenting with weakness, fatigue, decreased appetite and abdominal distention. CT abdomen pelvis showing ascites and n odular liver consistent with cirrhosis including portal hypertension. Patient with decompensated cirrhosis of the liver now with ascites secondary to alcohol abuse. Labs are consistent with alcohol cirrhosis of the liver. Will plan for paracentesis, hepatitis panel. Discussed with patient and at the bedside importance of alcohol abstinence. Recommend low-sodium diet. LFTs were trending up with acute alcohol hepatitis however have stabilized. No further gastroenterology workup for LFTs, they are stabilized. And secondary to acute alcohol hepatitis. Continue with alcohol abstinence and outpatient follow-up with gastroenterology Current Visit: Yes Status: Acute Code(s): K74.60 - UNSPECIFIED CIRRHOSIS OF LIVER SNOMED Code(s): 39834793 (2) Alcohol abuse Current Visit: Yes Status: Acute Code(s): F10.10 - ALCOHOL ABUSE, UNCOMPLICATED SNOMED Code(s): 20799081 (3) Ascites Narrative/Plan: Patient has status post 2 paracentesis this admission Current Visit: Yes Status: Acute Code(s): R18.8 - OTHER ASCITES SNOMED Code(s): 847769307 (4) Jaundice Current Visit: Yes Status: Acute Code(s): R17 - UNSPECIFIED JAUNDICE SNOMED Code(s): 65558998 (5) Hyponatremia Current Visit: Yes Status: Acute Code(s): E87.1 - HYPO-OSMOLALITY AND HYPONATREMIA SNOMED Code(s): 02360563 (6) Leukocytosis Narrative/Plan: Unclear etiology of leukocytosis, may be reactive to acute alcohol hepatitis and inflammation of liver. Patient afebrile. Last fluid culture from paracentesis with no growth. Patient to repeat paracentesis today with fluid culture and cell count. Infectious diseases following for leukocytosis. Repeat fluid studies cell count not consistent with spontaneous bacterial peritonitis, fluid cultures currently pending but negative to date. Current Visit: Yes Status: Acute Code(s): D72.829 - ELEVATED WHITE BLOOD CELL COUNT, UNSPECIFIED SNOMED Code(s): 620349820 Plan: 1. Continue symptomatic and supportive care 2. Continue low-sodium diet 3. Fluid restriction 1500 mL daily 4. Continue Lasix 20 mg daily, spironolactone 50 mg daily 5. Encourage ambulation 6. Discussed with patient and patient's importance of alcohol abstinence 7. Infectious disease on consult for leukocytosis continue with their recommendations 8. As far as patient's underlying liver disease patient is stable with current liver function tests and may be discharged when medically stable 9. Outpatient follow-up with gastroenterology Thank you for this consultation, we will sign off at this time. Dr. Osman Moss I agree with the dictator's note, documented as a scribe by Tonia Torre.
[2024-04-14 10:41] LABS: Basophils # (A) 0.19 X 10*3/uL (0.00-0.10); Basophils % (A) 0.9 %; Eosinophils # (A) 0.43 X 10*3/uL (0.04-0.35); Eosinophils % (A) 2.1 %; HCT 27.2 % (37.2-46.3); Lymphocytes # (A) 1.84 X 10*3/uL (0.90-5.00); Lymphocytes % (A) 9.1 %; MCH 38.9 pg (27.0-32.0); MCHC 36.8 g/dL (32.0-37.0); MCV 105.8 FL (80.0-97.0); Mean Platelet Volume 10.1 FL (9.5-12.2); Monocytes # (A) 1.63 X 10*3/uL (0.20-1.00); Monocytes % (A) 8.1 %; NRBC Per 100 WBC 0 X 10*3/uL (0.00-0.01); Neutrophils # (A) 15.64 X 10*3/uL (1.80-7.70); Neutrophils % (A) 77.5 %; Platelet Count 156 X 10*3/uL (140-440); RBC 2.57 X 10*6/uL (4.10-5.20); RDW 16.3 % (11.5-14.5); WBC 20.19 X 10*3/uL (4.50-10.00)
[2024-04-14 11:02] LABS: ALT 48 U/L (8-44); AST 129 U/L (13-35); Albumin 2.7 g/dL (3.8-4.9); Albumin/Globulin Ratio 0.73 Ratio (1.60-3.17); Alkaline Phosphatase 122 U/L (41-126); BUN/Creat Ratio 20.94 Ratio (12.00-20.00); Blood Urea Nitrogen 33.5 mg/dL (9.0-27.0); Calcium 8.2 mg/dL (8.7-10.3); Carbon Dioxide 19.4 mmol/L (21.6-31.8); Chloride 96 mmol/L (96-109); Globulin 3.7 g/dL (1.6-3.3); Glucose 108 mg/dL (70-110); Potassium 3.8 mmol/L (3.5-5.5); Sodium 127 mmol/L (135-145); Total Bilirubin 8.3 mg/dL (0.3-1.2); Total Protein 6.4 g/dL (6.2-8.2)
--- NOTE | 2024-04-14 15:46 | P.PN ---
Subjective Progress Note Date: 04/14/24 CHIEF COMPLAINT: abdominal ascites HISTORY OF PRESENT ILLNESS: Patient with no new complaints. Denies any abdominal pain. Afebrile. WBC 20 total bilirubin 8.3. Culture results from paracentesis fluid pending PHYSICAL EXAM: VITAL SIGNS: Reviewed. GENERAL: no acute distress. HEENT: scleral icterus ABDOMEN: Soft. Mildly distended. Nontender. skin: Jaundiced ASSESSMENT: 1. Abdominal distention due to abdominal ascites from liver cirrhosis status post paracentesis x 2 2. Elevated lipase level. No evidence of gallstones on CAT scan. No abdominal tenderness on exam 3. History of alcoholic liver cirrhosis 4. Portal venous hypertension with ascites 5. Severe protein calorie malnutrition 6. Inflamed short small bowel loop in the mid abdomen noted on CT PLAN: -No surgical intervention planned -Recommend follow-up with GI service outpatient in regards to her liver cirrhosis -Antibiotics per ID service -Surgical service will sign off. Please call with any questions or concerns Physician Etiquette Teacher note has been reviewed by physician. Signing provider agrees with the documented findings, assessment, and plan of care. Objective - Vital Signs Vital signs: Vital Signs Temp 97.8 F 04/14/24 14:13 Pulse 96 04/14/24 14:13 Resp 18 04/14/24 14:13 BP 97/46 04/14/24 14:13 Pulse Ox 96 04/14/24 14:13 FiO2 Intake & Output 04/13/24 04/14/24 04/14/24 18:59 06:59 18:59 Intake Total 0 Balance 0 Weight 74.843 kg Intake: Oral 0 Other: Voiding Method Toilet Toilet # Voids 3 1 1 # Bowel Movements 1 - Labs CBC & Chem 7: 04/14/24 06:17 04/14/24 06:17 Labs: Abnormal Lab Results - Last 24 Hours (Table) 04/14/24 04/14/24 Range/Units 06:17 06:17 WBC 20.19 H (4.50-10.00) X 10*3/uL RBC 2.57 L (4.10-5.20) X 10*6/uL Hgb 10.0 L (12.0-15.0) g/dL Hct 27.2 L (37.2-46.3) % MCV 105.8 H (80.0-97.0) FL MCH 38.9 H (27.0-32.0) pg RDW 16.3 H (11.5-14.5) % Immature Gran # 0.46 H (0.00-0.04) X 10*3/uL Neutrophils # 15.64 H (1.80-7.70) X 10*3/uL Monocytes # 1.63 H (0.20-1.00) X 10*3/uL Eosinophils # 0.43 H (0.04-0.35) X 10*3/uL Basophils # 0.19 H (0.00-0.10) X 10*3/uL Sodium 127 L (135-145) mmol/L Carbon Dioxide 19.4 L (21.6-31.8) mmol/L BUN 33.5 H (9.0-27.0) mg/dL Creatinine 1.6 H (0.6-1.5) mg/dL Est GFR (CKD-EPI) 35 L (>=60) BUN/Creatinine Ratio 20.94 H (12.00-20.00) Ratio Calcium 8.2 L (8.7-10.3) mg/dL Total Bilirubin 8.3 H (0.3-1.2) mg/dL AST 129 H (13-35) U/L ALT 48 H (8-44) U/L Albumin 2.7 L (3.8-4.9) g/dL Globulin 3.7 H (1.6-3.3) g/dL Albumin/Globulin Ratio 0.73 L (1.60-3.17) Ratio Microbiology - Last 24 Hours (Table) 04/12/24 10:27 Anaerobic Culture - Preliminary Ascites Fluid 04/12/24 10:27 Gram Stain - Preliminary Ascites Fluid Body Fluid Culture - Preliminary 04/10/24 13:48 Blood Culture - Preliminary Blood
[2024-04-14] MEDS: metroNIDAZOLE 500 MG TAB PO SCH (17:22)
--- NOTE | 2024-04-14 21:14 | P.PN ---
Subjective Progress Note Date: 04/14/24 Principal diagnosis: Reason for follow-up is leukocytosis Patient is a 68-year-old female with a past medical history significant for alcohol abuse presented to the hospital for evaluation of increased weakness decreased appetite abdominal distention patient be diagnosed with cirrhosis of the liver secondary to alcoholism did have paracentesis abdominal culture negative with worsening white count prompted this consultation.Patient is status post paracentesis completed 04/12/2024 patient tolerated the procedure On today's evaluation that is 04/14/2024, Patient is afebrile this morning patient denies having any chest pain shortness of breath or cough, the patient is breathing comfortably and currently on room air, patient still having some abdominal distention but denies abdominal pain did have some loose stool but only 1 bowel movement denies any blood or mucus in the stool. Patient white count is 20.19, creatinine is 1.6 abdominal cultures currently pending Objective - Vital Signs Vital signs: Vital Signs Temp 97.6 F 04/14/24 06:54 Pulse 91 04/14/24 08:10 Resp 18 04/14/24 08:10 BP 98/50 04/14/24 06:54 Pulse Ox 94 L 04/14/24 06:54 FiO2 Intake & Output 04/13/24 04/14/24 04/14/24 18:59 06:59 18:59 Intake Total 0 Balance 0 Weight 74.843 kg Intake: Oral 0 Other: Voiding Method Toilet Toilet # Voids 3 1 1 # Bowel Movements 1 - Exam GENERAL DESCRIPTION: An elderly female lying in bed in no distress HEENT: Oral thrush RESPIRATORY SYSTEM: Unlabored breathing , decreased breath sounds at bases HEART: S1 S2 regular rate and rhythm , ABDOMEN: Soft , no tenderness EXTREMITIES: No edema feet - Labs CBC & Chem 7: 04/14/24 06:17 04/14/24 06:17 Labs: Abnormal Lab Results - Last 24 Hours (Table) 04/14/24 04/14/24 Range/Units 06:17 06:17 WBC 20.19 H (4.50-10.00) X 10*3/uL RBC 2.57 L (4.10-5.20) X 10*6/uL Hgb 10.0 L (12.0-15.0) g/dL Hct 27.2 L (37.2-46.3) % MCV 105.8 H (80.0-97.0) FL MCH 38.9 H (27.0-32.0) pg RDW 16.3 H (11.5-14.5) % Immature Gran # 0.46 H (0.00-0.04) X 10*3/uL Neutrophils # 15.64 H (1.80-7.70) X 10*3/uL Monocytes # 1.63 H (0.20-1.00) X 10*3/uL Eosinophils # 0.43 H (0.04-0.35) X 10*3/uL Basophils # 0.19 H (0.00-0.10) X 10*3/uL Sodium 127 L (135-145) mmol/L Carbon Dioxide 19.4 L (21.6-31.8) mmol/L BUN 33.5 H (9.0-27.0) mg/dL Creatinine 1.6 H (0.6-1.5) mg/dL Est GFR (CKD-EPI) 35 L (>=60) BUN/Creatinine Ratio 20.94 H (12.00-20.00) Ratio Calcium 8.2 L (8.7-10.3) mg/dL Total Bilirubin 8.3 H (0.3-1.2) mg/dL AST 129 H (13-35) U/L ALT 48 H (8-44) U/L Albumin 2.7 L (3.8-4.9) g/dL Globulin 3.7 H (1.6-3.3) g/dL Albumin/Globulin Ratio 0.73 L (1.60-3.17) Ratio Microbiology - Last 24 Hours (Table) 04/12/24 10:27 Anaerobic Culture - Preliminary Ascites Fluid 04/12/24 10:27 Gram Stain - Preliminary Ascites Fluid Body Fluid Culture - Preliminary 04/10/24 13:48 Blood Culture - Preliminary Blood Assessment and Plan (1) Leukocytosis Current Visit: Yes Status: Acute Code(s): D72.829 - ELEVATED WHITE BLOOD CELL COUNT, UNSPECIFIED SNOMED Code(s): 688525023 (2) Oral thrush Current Visit: Yes Status: Acute Code(s): B37.0 - CANDIDAL STOMATITIS SNOMED Code(s): 22653127 Plan: 1patient with elevated white count and this patient presented to hospital with weakness decreased appetite did have a abdominal ascites from cirrhosis of the liver status post paracentesis and those culture has been negative patient did not have any fever during this hospital stay noticed to have mild thrush could be etiology of this elevated white count has no other obvious focus of infection 2-UA has been negative, CT of the chest no pneumonia however the patient did have elevated procalcitonin 3-patient did have CT abdominal pelvis with oral contrast which did shows significant ascites and possible inflammation of the small bowel with worsening of the white count 4-patient is status post paracentesis did have cloudy peritoneal fluid and mild elevated white count we will wait for the culture to finalize continue with Zosyn we will discontinue Diflucan and Flagyl and repeat a CBC with a.m. lab Dictation was produced using [employer] dictation software. please excuse any grammatical, word or spelling errors. Time with Patient: Less than 30
[2024-04-15 08:41] LABS: Basophils # (A) 0.19 X 10*3/uL (0.00-0.10); Eosinophils # (A) 0.45 X 10*3/uL (0.04-0.35); Eosinophils % (A) 2.3 %; HCT 26.2 % (37.2-46.3); HGB 9.7 g/dL (12.0-15.0); Lymphocytes # (A) 1.57 X 10*3/uL (0.90-5.00); Lymphocytes % (A) 8.1 %; MCH 39.3 pg (27.0-32.0); MCV 106.1 FL (80.0-97.0); Mean Platelet Volume 10.6 FL (9.5-12.2); Monocytes # (A) 1.58 X 10*3/uL (0.20-1.00); Monocytes % (A) 8.2 %; NRBC Per 100 WBC 0 X 10*3/uL (0.00-0.01); Neutrophils # (A) 15.05 X 10*3/uL (1.80-7.70); Neutrophils % (A) 77.8 %; Platelet Count 163 X 10*3/uL (140-440); RBC 2.47 X 10*6/uL (4.10-5.20); RDW 16.1 % (11.5-14.5); WBC 19.35 X 10*3/uL (4.50-10.00)
[2024-04-15 08:54] LABS: ALT 54 U/L (8-44); AST 133 U/L (13-35); Albumin 2.6 g/dL (3.8-4.9); Albumin/Globulin Ratio 0.68 Ratio (1.60-3.17); Alkaline Phosphatase 122 U/L (41-126); Blood Urea Nitrogen 35.7 mg/dL (9.0-27.0); Calcium 8.1 mg/dL (8.7-10.3); Carbon Dioxide 18.5 mmol/L (21.6-31.8); Chloride 94 mmol/L (96-109); Globulin 3.8 g/dL (1.6-3.3); Glucose 114 mg/dL (70-110); Potassium 3.8 mmol/L (3.5-5.5); Sodium 126 mmol/L (135-145); Total Bilirubin 7.7 mg/dL (0.3-1.2); Total Protein 6.4 g/dL (6.2-8.2)
[2024-04-15] MEDS: NEOMYCIN-BACITRACIN-POLY OINT 14 GM TUBE TOPICAL PRN (12:26)
--- NOTE | 2024-04-15 12:33 | XR ---
Right hip. HISTORY: Pain following fall. COMPARISON: None TECHNIQUE: 2 views of the right hip were obtained. FINDINGS: There is no fracture, dislocation, intraosseous, intra-articular soft tissue abnormality. IMPRESSION: No evidence of right hip trauma.
--- NOTE | 2024-04-15 12:35 | XR ---
Left knee HISTORY: Pain following fall. COMPARISON: None TECHNIQUE: 3 views of the left knee were obtained. FINDINGS: There is no fracture, dislocation, intraosseous, intra-articular soft tissue abnormality. There is no joint effusion. IMPRESSION: No evidence of acute trauma.
--- NOTE | 2024-04-15 16:08 | P.PN ---
Subjective Progress Note Date: 04/15/24 Principal diagnosis: Ascites This is a pleasant 68-year-old female who presented to the emergency department for increased weakness, decreased appetite and abdominal distention. Patient has history of alcohol abuse and was drinking quite heavily. She admitted to drinking 3 back on squirts daily for at least 10 years. States she has not been drinking at all for the last 2 weeks duration. She had abdominal CT that reports cirrhosis of the liver, portal hypertension with moderate to severe ascites. She denies any previous history of liver disease, no history of hepatitis, no previous history of ascites. States that her abdomen has been distended for last 2 weeks duration with some discomfort. at the bedside states that he has not really noticed that she was jaundice but states that she has been sleeping quite a bit and had decreased appetite not eating or drinking much. Patient with elevated liver enzymes. She denies any abdominal pain at this time, no nausea or vomiting, no fevers or chills. 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 Patient is scheduled to undergo paracentesis today. She is otherwise without any complaints. Denies any abdominal pain, nausea or vomiting. Today's labs WBC 12.0 hemoglobin 11.9 hematocrit 32 platelet count 164,000 INR 1.65 sodium 130 potassium 3.9 BUN 21 creatinine 1.1 total bilirubin 6.8 AST 118 ALT 37 alkaline phosphatase 137 hepatitis panel nonreactive. 04/01/2024 Patient seen and examined this morning as a follow-up. States she is feeling a little better yesterday. Yesterday she underwent paracentesis with 7.5 L removed following with albumin. She denies any abdominal pain, nausea or vomiting. WBC 11.1 hemoglobin 11.3 platelet count 150,000 sodium 133 potassium 3.8 18.4 creatinine 1.0 total bilirubin 7.3 AST 102-day-old T 31 alkaline phosphatase 111 04/11/2024 Patient seen and examined today as a follow-up. There was no gastroenterology present in the hospital last week. Patient has remained in the hospital now for 2 weeks. 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 Also noted to have acute alcohol hepatitis with elevated liver enzymes now stabilizing. She had a paracentesis on 719 and since then has had increased abdominal distention and is scheduled to undergo paracentesis today. Patient also has been noted to have leukocytosis this admission with a white count of 20.2 today. She denies any abdominal pain, nausea or vomiting. She has been afebrile. Infectious diseases following and patient is on Zosyn. Fluid cultures from first paracentesis were negative. Cytology negative. 04/12/2024 Patient seen and examined today as a follow-up. She underwent paracentesis with 5.8 L removed. Today's labs WBC 20.4 hemoglobin 10.2 platelet count 159,000 sodium 126 potassium 4.2 BUN 31 creatinine 1.6 total bilirubin 8.6 AST 129 ALT 54 alkaline phosphatase 122 fluid cell count pending as well as fluid culture. No abdominal pain, nausea or vomiting. No other acute changes. Patient remains afebrile. 04/13/2024 Seen and examined today as a follow-up. She is without any complaints. No abdominal pain, nausea or vomiting. She is afebrile. LFTs stable, total bilirubin 9.0 AST 126 ALT 51 alkaline phosphatase 113. Fluid culture currently pending, 24 hours no growth. Fluid cell count not consistent with SBP 04/14/2024 Patient is seen and examined today as a follow-up. No acute changes through the night. She remains afebrile. Fluid culture with no growth at 48 hours. Today's labs currently pending. Denies abdominal pain, nausea or vomiting. No shortness of breath or chest pain. 04/15/2024 Patient seen and examined today as a follow-up. She states she feels like she is filling up with fluid again in her abdomen. She denies any abdominal pain, nausea or vomiting. No fever, chills or bodyaches. She does report watery diarrhea. Ascitic fluid culture at 72 hours with no growth. WBC 19.3 hemoglobin 9.7 platelet count 163,000 total bilirubin 8.1 AST 7.7 AST 133 ALT 54 alkaline phosphatase 122 Objective - Vital Signs Vital signs: Vital Signs Temp 98.6 F 04/15/24 06:56 Pulse 90 04/15/24 06:56 Resp 18 04/15/24 06:56 BP 96/54 04/15/24 06:56 Pulse Ox 94 L 04/15/24 06:56 FiO2 Intake & Output 04/14/24 04/15/24 04/15/24 18:59 06:59 18:59 Intake Total 0 Balance 0 Weight 74.843 kg Intake: Oral 0 Other: Voiding Method Toilet Toilet # Voids 1 1 # Bowel Movements 1 - Exam General appearance: The patient is alert, oriented, appears in no acute distress. HET: Head is normocephalic and atraumatic. Conjunctiva pink. Sclera icteric. Neck: Supple without lymphadenopathy. Abdomen: Soft, nondistended, ascites, nontender. Extremities: Normal skin color and turgor. No pedal edema Skin: No rashes, jaundice. Neurological: No focal deficits. Alert and oriented. - Labs CBC & Chem 7: 04/15/24 05:16 04/15/24 05:16 Labs: Abnormal Lab Results - Last 24 Hours (Table) 04/14/24 04/14/24 04/15/24 Range/Units 06:17 06:17 05:16 WBC 20.19 H 19.35 H (4.50-10.00) X 10*3/uL RBC 2.57 L 2.47 L (4.10-5.20) X 10*6/uL Hgb 10.0 L 9.7 L (12.0-15.0) g/dL Hct 27.2 L 26.2 L (37.2-46.3) % MCV 105.8 H 106.1 H (80.0-97.0) FL MCH 38.9 H 39.3 H (27.0-32.0) pg RDW 16.3 H 16.1 H (11.5-14.5) % Immature Gran # 0.46 H 0.51 H (0.00-0.04) X 10*3/uL Neutrophils # 15.64 H 15.05 H (1.80-7.70) X 10*3/uL Monocytes # 1.63 H 1.58 H (0.20-1.00) X 10*3/uL Eosinophils # 0.43 H 0.45 H (0.04-0.35) X 10*3/uL Basophils # 0.19 H 0.19 H (0.00-0.10) X 10*3/uL Sodium 127 L (135-145) mmol/L Chloride (96-109) mmol/L Carbon Dioxide 19.4 L (21.6-31.8) mmol/L Anion Gap (4.00-12.00) mmol/L BUN 33.5 H (9.0-27.0) mg/dL Creatinine 1.6 H (0.6-1.5) mg/dL Est GFR (CKD-EPI) 35 L (>=60) BUN/Creatinine Ratio 20.94 H (12.00-20.00) Ratio Glucose (70-110) mg/dL Calcium 8.2 L (8.7-10.3) mg/dL Total Bilirubin 8.3 H (0.3-1.2) mg/dL AST 129 H (13-35) U/L ALT 48 H (8-44) U/L C-Reactive Protein (0.00-0.80) mg/dL Albumin 2.7 L (3.8-4.9) g/dL Globulin 3.7 H (1.6-3.3) g/dL Albumin/Globulin Ratio 0.73 L (1.60-3.17) Ratio 04/15/24 Range/Units 05:16 WBC (4.50-10.00) X 10*3/uL RBC (4.10-5.20) X 10*6/uL Hgb (12.0-15.0) g/dL Hct (37.2-46.3) % MCV (80.0-97.0) FL MCH (27.0-32.0) pg RDW (11.5-14.5) % Immature Gran # (0.00-0.04) X 10*3/uL Neutrophils # (1.80-7.70) X 10*3/uL Monocytes # (0.20-1.00) X 10*3/uL Eosinophils # (0.04-0.35) X 10*3/uL Basophils # (0.00-0.10) X 10*3/uL Sodium 126 L (135-145) mmol/L Chloride 94 L (96-109) mmol/L Carbon Dioxide 18.5 L (21.6-31.8) mmol/L Anion Gap 13.50 H (4.00-12.00) mmol/L BUN 35.7 H (9.0-27.0) mg/dL Creatinine 1.7 H (0.6-1.5) mg/dL Est GFR (CKD-EPI) 32 L (>=60) BUN/Creatinine Ratio 21.00 H (12.00-20.00) Ratio Glucose 114 H (70-110) mg/dL Calcium 8.1 L (8.7-10.3) mg/dL Total Bilirubin 7.7 H (0.3-1.2) mg/dL AST 133 H (13-35) U/L ALT 54 H (8-44) U/L C-Reactive Protein 7.30 H (0.00-0.80) mg/dL Albumin 2.6 L (3.8-4.9) g/dL Globulin 3.8 H (1.6-3.3) g/dL Albumin/Globulin Ratio 0.68 L (1.60-3.17) Ratio Microbiology - Last 24 Hours (Table) 04/12/24 10:27 Gram Stain - Preliminary Ascites Fluid Body Fluid Culture - Preliminary 04/12/24 10:27 Anaerobic Culture - Preliminary Ascites Fluid Assessment and Plan (1) Cirrhosis Narrative/Plan: 68-year-old female with alcohol abuse over the last 10 years duration admitting to at least 3 liquor drinks daily presenting with weakness, fatigue, decreased appetite and abdominal distention. CT abdomen pelvis showing ascites and nodular liver consistent with cirrhosis including portal hypertension. Patient with decompensated cirrhosis of the liver now with ascites secondary to alcohol abuse. Labs are consistent with alcohol cirrhosis of the liver. Will plan for paracentesis, hepatitis panel. Discussed with patient and at the bedside importance of alcohol abstinence. Recommend low-sodium diet. LFTs were trending up with acute alcohol hepatitis however have stabilized. No further gastroenterology workup for LFTs, they are stabilized. And secondary to acute alcohol hepatitis. Continue with alcohol abstinence and outpatient follow-up with gastroenterology Current Visit: Yes Status: Acute Code(s): K74.60 - UNSPECIFIED CIRRHOSIS OF LIVER SNOMED Code(s): 78150142 (2) Alcohol abuse Current Visit: Yes Status: Acute Code(s): F10.10 - ALCOHOL ABUSE, UNCOMPLICATED SNOMED Code(s): 78830647 (3) Ascites Narrative/Plan: Patient has status post 2 paracentesis this admission. I will order repeat therapeutic paracentesis for Thursday if patient still hospitalized Current Visit: Yes Status: Acute Code(s): R18.8 - OTHER ASCITES SNOMED Code(s): 035977576 (4) Jaundice Current Visit: Yes Status: Acute Code(s): R17 - UNSPECIFIED JAUNDICE SNOMED Code(s): 27312686 (5) Hyponatremia Current Visit: Yes Status: Acute Code(s): E87.1 - HYPO-OSMOLALITY AND HYPONATREMIA SNOMED Code(s): 37819773 (6) Leukocytosis Narrative/Plan: Unclear etiology of leukocytosis, may be reactive to acute alcohol hepatitis and inflammation of liver. Patient afebrile. Last fluid culture from paracentesis with no growth. Patient to repeat paracentesis today with fluid culture and cell count. Infectious diseases following for leukocytosis. Repeat fluid studies cell count not consistent with spontaneous bacterial peritonitis, fluid cultures currently pending but negative to date. Current Visit: Yes Status: Acute Code(s): D72.829 - ELEVATED WHITE BLOOD CELL COUNT, UNSPECIFIED SNOMED Code(s): 454554020 (7) Diarrhea Narrative/Plan: Likely secondary to antibiotics. Need to rule out C. difficile toxin secondary to antibiotic use. Current Visit: Yes Status: Acute Code(s): R19.7 - DIARRHEA, UNSPECIFIED SNOMED Code(s): 51648544 Plan: 1. Continue symptomatic and supportive care 2. Continue low-sodium diet 3. Fluid restriction 1500 mL daily 4. Continue Lasix 20 mg daily, spironolactone 50 mg daily 5. Encourage ambulation 6. Discussed with patient and patient's importance of alcohol a bstinence 7. Infectious disease on consult for leukocytosis continue with their recommendations 8. Stool C. difficile ordered, negative 9. Will add Questran for diarrhea, may also add Imodium if needed 10. As far as patient's underlying liver disease, patient is stable with current liver function tests 11. Therapeutic paracentesis ordered for 04/18/2024 patient still hospitalized 12. Patient is cleared for discharge from gastroenterology, recommend outpatient follow-up with gastroenterology Thank you for allowing us to participate in the care of the patient, the GI service will sign off, gastroenterology will not be available at the hospital this weekend. If further evaluation by gastroenterology is required the patient will need transfer as per the primary team's discretion. Dr. Osman Moss I agree with the dictator's note, documented as a scribe by Tonia Davila
[2024-04-15] MEDS: MIDODRINE 5 MG TAB PO SCH (17:14)
[2024-04-15] MEDS: CEFDINIR 300 MG CAP PO SCH (20:23)
--- NOTE | 2024-04-16 00:21 | PN ---
PROGRESS NOTE SUBJECTIVE: Blood pressure dropping to 90/51 from 100/57, standing up she got dizzy and she fell today. We are going to put her on midodrine and watch her day and then she can go home on oral antibiotics. Discussed with Dr. Dye. Sent home on Flagyl empirically 500 t.i.d. and Ceftin 500 b.i.d. for 7 days. Bilirubin is greatly improved down to 7.7. Sodium continues at 126. She is on apparently fluid restriction. Hemoglobin is 10.7, white count is 19.35. PROGNOSIS: Guarded. Continue current treatment, PT OT, started on midodrine. Prophylactic antibiotics on discharge. Watch her PT OT for a day, make sure she is not falling and she is stable before discharge. DEE / BROOKEN: [id number] /
[2024-04-16 08:00] LABS: Basophils # (A) 0.1 k/uL (0-0.2); Basophils % (A) 1 %; Eosinophils # (A) 0.3 k/uL (0-0.7); Eosinophils % (A) 2 %; HCT 28.8 % (34.0-46.0); Lymphocytes # (A) 1.6 k/uL (1.0-4.8); Lymphocytes % (A) 8 %; MCH 38.4 pg (25.0-35.0); MCV 116.3 fL (80.0-100.0); Macrocytosis Marked; Mean Platelet Volume 9.8; Monocytes # (A) 1.1 k/uL (0-1.0); Monocytes % (A) 5 %; Neutrophils # (A) 16.3 k/uL (1.3-7.7); Neutrophils % (A) 83 %; Platelet Count 176 k/uL (150-450); RBC 2.48 m/uL (3.80-5.40); RDW 14.7 % (11.5-15.5); WBC 19.7 k/uL (3.8-10.6)
[2024-04-16 08:04] LABS: ALT 47 U/L (4-34); AST 125 U/L (14-36); African American GFR (CKD) 33 (>60 ml/min/1.73 sqM); Albumin 2.4 g/dL (3.5-5.0); Albumin/Globulin Ratio 0.6; Alkaline Phosphatase 134 U/L (38-126); Anion Gap 9 mmol/L; Blood Urea Nitrogen 39 mg/dL (7-17); Calcium 7.9 mg/dL (8.4-10.2); Carbon Dioxide 16 mmol/L (22-30); Chloride 101 mmol/L (98-107); Globulin 4.1 g/dL; Glucose 116 mg/dL (74-99); Non-African American GFR(CKD) 29 (>60 ml/min/1.73 sqM); Potassium 3.6 mmol/L (3.5-5.1); Sodium 126 mmol/L (137-145); Total Bilirubin 8.6 mg/dL (0.2-1.3); Total Protein 6.5 g/dL (6.3-8.2)
[2024-04-16 08:07] LABS: HGB 9.5 gm/dL (11.4-16.0)
--- NOTE | 2024-04-16 15:15 | P.PN ---
Subjective Progress Note Date: 04/16/24 Principal diagnosis: Reason for follow-up is leukocytosis Patient is a 68-year-old female with a past medical history significant for alcohol abuse presented to the hospital for evaluation of increased weakness decreased appetite abdominal distention patient be diagnosed with cirrhosis of the liver secondary to alcoholism did have paracentesis abdominal culture negative with worsening white count prompted this consultation.Patient is status post paracentesis completed 04/12/2024 patient tolerated the procedure On today's evaluation that is 04/16/2024,the patient remains to be afebrile, patient is on room air not requiring supplemental oxygen and denies any short ness of breath no chest pain or cough.Patient denies having any nausea or vomiting, still complaining of abdominal distention slightly worse than yesterday did not have any bowel movement today. Patient white count is 19.7, creatinine 1.79 stool for C. difficile is negative Objective - Vital Signs Vital signs: Vital Signs Temp 98.3 F 04/16/24 07:18 Pulse 94 04/16/24 07:18 Resp 18 04/16/24 07:18 BP 111/57 04/16/24 07:18 Pulse Ox 95 04/16/24 07:18 FiO2 Intake & Output 04/15/24 04/16/24 04/16/24 18:59 06:59 18:59 Intake Total 1000 Balance 1000 Intake: Intake, IV Titration 1000 Amount Piperacillin-Tazobactam 3 100 .375 gm In Sodium Chloride 0.9% 100 ml @ 25 mls/hr IVPB Q8HR [facility] Rx# :[id number] Sodium Chloride 0.9% 1, 900 000 ml @ 75 mls/hr IV . [id number] [facility] Rx#:[id number] Other: Voiding Method Toilet Toilet Toilet # Voids 1 1 # Bowel Movements 1 - Exam GENERAL DESCRIPTION: An elderly female lying in bed in no distress HEENT: Oral thrush RESPIRATORY SYSTEM: Unlabored breathing , decreased breath sounds at bases HEART: S1 S2 regular rate and rhythm , ABDOMEN: Soft , no tenderness EXTREMITIES: No edema feet - Labs CBC & Chem 7: 04/16/24 06:50 04/16/24 06:50 Labs: Abnormal Lab Results - Last 24 Hours (Table) 04/16/24 04/16/24 Range/Units 06:50 06:50 WBC 19.7 H (3.8-10.6) k/uL RBC 2.48 L (3.80-5.40) m/uL Hgb 9.5 L D (11.4-16.0) gm/dL Hct 28.8 L (34.0-46.0) % MCV 116.3 H (80.0-100.0) fL MCH 38.4 H (25.0-35.0) pg Neutrophils # 16.3 H (1.3-7.7) k/uL Monocytes # 1.1 H (0-1.0) k/uL Macrocytosis Marked A Sodium 126 L (137-145) mmol/L Carbon Dioxide 16 L (22-30) mmol/L BUN 39 H (7-17) mg/dL Creatinine 1.79 H (0.52-1.04) mg/dL Glucose 116 H (74-99) mg/dL Calcium 7.9 L (8.4-10.2) mg/dL Total Bilirubin 8.6 H (0.2-1.3) mg/dL AST 125 H (14-36) U/L ALT 47 H (4-34) U/L Alkaline Phosphatase 134 H (38-126) U/L Albumin 2.4 L (3.5-5.0) g/dL Microbiology - Last 24 Hours (Table) 04/12/24 10:27 Anaerobic Culture - Final Ascites Fluid 04/12/24 10:27 Gram Stain - Final Ascites Fluid Body Fluid Culture - Final 04/10/24 13:48 Blood Culture - Final Blood Assessment and Plan (1) Leukocytosis Current Visit: Yes Status: Acute Code(s): D72.829 - ELEVATED WHITE BLOOD CELL COUNT, UNSPECIFIED SNOMED Code(s): 358198238 (2) Oral thrush Current Visit: Yes Status: Acute Code(s): B37.0 - CANDIDAL STOMATITIS SNOMED Code(s): 50278544 Plan: 1patient with elevated white count and this patient presented to hospital with weakness decreased appetite did have a abdominal ascites from cirrhosis of the liver status post paracentesis and those culture has been negative patient did not have any fever during this hospital stay noticed to have mild thrush could be etiology of this elevated white count has no other obvious focus of infection 2-UA has been negative, CT of the chest no pneumonia however the patient did hav e elevated procalcitonin 3-patient did have CT abdominal pelvis with oral contrast which did shows s ignificant ascites and possible inflammation of the small bowel 4-patient is status post paracentesis did have cloudy peritoneal fluid and mild elevated white count, peritoneal fluid culture has been negative so far patient did have a persistent elevated white count also with repeat accumulation of the ascitic fluid will benefit from transfer to tertiary care for more aggressive treatment of underlying cirrhosis and recurrent ascites at the bedside multiple question answered Dictation was produced using [employer] dictation software. please excuse any grammatical, word or spelling errors. Time with Patient: Less than 30
--- NOTE | 2024-04-16 15:15 | P.PN ---
Subjective Progress Note Date: 04/15/24 Principal diagnosis: Reason for follow-up is leukocytosis Patient is a 68-year-old female with a past medical history significant for alcohol abuse presented to the hospital for evaluation of increased weakness decreased appetite abdominal distention patient be diagnosed with cirrhosis of the liver secondary to alcoholism did have paracentesis abdominal culture negative with worsening white count prompted this consultation.Patient is status post paracentesis completed 04/12/2024 patient tolerated the procedure On today's evaluation that is 04/15/2024,the patient denies any fever or any chills, patient is breathing comfortably on room air, the patient denies chest pain shortness of breath and no significant cough, patient denies abdominal pain, no nausea vomiting, loose stools stool for C. difficile has been collected. Patient white count is down to 19.35, creatinine is 1.7 Objective - Vital Signs Vital signs: Vital Signs Temp 98.6 F 04/15/24 06:56 Pulse 91 04/15/24 11:17 Resp 18 04/15/24 11:17 BP 102/58 04/15/24 11:17 Pulse Ox 95 04/15/24 11:17 FiO2 Intake & Output 04/14/24 04/15/24 04/15/24 18:59 06:59 18:59 Intake Total 0 Balance 0 Weight 74.843 kg Intake: Oral 0 Other: Voiding Method Toilet Toilet Toilet # Voids 1 1 # Bowel Movements 1 - Exam GENERAL DESCRIPTION: An elderly female lying in bed in no distress HEENT: Oral thrush RESPIRATORY SYSTEM: Unlabored breathing , decreased breath sounds at bases HEART: S1 S2 regular rate and rhythm , ABDOMEN: Soft , no tenderness EXTREMITIES: No edema feet - Labs CBC & Chem 7: 04/16/24 06:50 04/16/24 06:50 Labs: Abnormal Lab Results - Last 24 Hours (Table) 04/15/24 04/15/24 Range/Units 05:16 05:16 WBC 19.35 H (4.50-10.00) X 10*3/uL RBC 2.47 L (4.10-5.20) X 10*6/uL Hgb 9.7 L (12.0-15.0) g/dL Hct 26.2 L (37.2-46.3) % MCV 106.1 H (80.0-97.0) FL MCH 39.3 H (27.0-32.0) pg RDW 16.1 H (11.5-14.5) % Immature Gran # 0.51 H (0.00-0.04) X 10*3/uL Neutrophils # 15.05 H (1.80-7.70) X 10*3/uL Monocytes # 1.58 H (0.20-1.00) X 10*3/uL Eosinophils # 0.45 H (0.04-0.35) X 10*3/uL Basophils # 0.19 H (0.00-0.10) X 10*3/uL Sodium 126 L (135-145) mmol/L Chloride 94 L (96-109) mmol/L Carbon Dioxide 18.5 L (21.6-31.8) mmol/L Anion Gap 13.50 H (4.00-12.00) mmol/L BUN 35.7 H (9.0-27.0) mg/dL Creatinine 1.7 H (0.6-1.5) mg/dL Est GFR (CKD-EPI) 32 L (>=60) BUN/Creatinine Ratio 21.00 H (12.00-20.00) Ratio Glucose 114 H (70-110) mg/dL Calcium 8.1 L (8.7-10.3) mg/dL Total Bilirubin 7.7 H (0.3-1.2) mg/dL AST 133 H (13-35) U/L ALT 54 H (8-44) U/L C-Reactive Protein 7.30 H (0.00-0.80) mg/dL Albumin 2.6 L (3.8-4.9) g/dL Globulin 3.8 H (1.6-3.3) g/dL Albumin/Globulin Ratio 0.68 L (1.60-3.17) Ratio Microbiology - Last 24 Hours (Table) 04/12/24 10:27 Gram Stain - Preliminary Ascites Fluid Body Fluid Culture - Preliminary 04/12/24 10:27 Anaerobic Culture - Preliminary Ascites Fluid Assessment and Plan (1) Leukocytosis Current Visit: Yes Status: Acute Code(s): D72.829 - ELEVATED WHITE BLOOD CELL COUNT, UNSPECIFIED SNOMED Code(s): 619351095 (2) Oral thrush Current Visit: Yes Status: Acute Code(s): B37.0 - CANDIDAL STOMATITIS SNOMED Code(s): 97831570 Plan: 1patient with elevated white count and this patient presented to hospital with weakness decreased appetite did have a abdominal ascites from cirrhosis of the liver status post paracentesis and those culture has been negative patient did not have any fever during this hospital stay noticed to have mild thrush could be etiology of this elevated white count has no other obvious focus of infection 2-UA has been negative, CT of the chest no pneumonia however the patient did have elevated procalcitonin 3-patient did have CT abdominal pelvis with oral contrast which did shows sign ificant ascites and possible inflammation of the small bowel 4-patient is status post paracentesis did have cloudy peritoneal fluid and mild elevated white count, white count is trending down. Antibiotic switched over to Ceftin and Flagyl Dictation was produced using [employer] dictation software. please excuse any grammatical, word or spelling errors. Time with Patient: Less than 30
[2024-04-17 11:27] LABS: HCT 27.7 % (34.0-46.0); HGB 9.7 gm/dL (11.4-16.0); MCH 40.4 pg (25.0-35.0); MCV 115.4 fL (80.0-100.0); Macrocytosis Marked; Mean Platelet Volume 9.4; Platelet Count 207 k/uL (150-450); RDW 14.2 % (11.5-15.5); WBC 18.4 k/uL (3.8-10.6)
[2024-04-17 11:41] LABS: ALT 45 U/L (4-34); AST 119 U/L (14-36); African American GFR (CKD) 25 (>60 ml/min/1.73 sqM); Albumin 2.5 g/dL (3.5-5.0); Albumin/Globulin Ratio 0.6; Alkaline Phosphatase 135 U/L (38-126); Anion Gap 10 mmol/L; Blood Urea Nitrogen 43 mg/dL (7-17); Carbon Dioxide 12 mmol/L (22-30); Chloride 103 mmol/L (98-107); Glucose 129 mg/dL (74-99); Non-African American GFR(CKD) 22 (>60 ml/min/1.73 sqM); Potassium 3.5 mmol/L (3.5-5.1); Sodium 125 mmol/L (137-145); Total Bilirubin 8.3 mg/dL (0.2-1.3); Total Protein 6.5 g/dL (6.3-8.2)
[2024-04-17 13:00] LABS: Basophils # (M) 0.18 k/uL (0-0.2); Eosinophils # (M) 0.37 k/uL (0-0.7); Lymphocytes # (M) 0.92 k/uL (1.0-4.8); Metamyelocytes # (M) 0.18 k/uL (0); Metamyelocytes % 1 %; Monocytes # (M) 1.66 k/uL (0-1.0); Myelocytes # (M) 0.18 k/uL (0); Myelocytes % 1 %; Neutrophils # (M) 15.46 k/uL (1.3-7.7); Neutrophils % (M) 84 %; Nucleated Red Blood Cells 0 /100 WBC (0-0); Rouleaux Present; Total Cells Counted 200
[2024-04-17 14:38] VITALS: RESP 18
--- NOTE | 2024-04-17 15:43 | P.PN ---
Subjective Progress Note Date: 04/17/24 Principal diagnosis: Reason for follow-up is leukocytosis Patient is a 68-year-old female with a past medical history significant for alcohol abuse presented to the hospital for evaluation of increased weakness decreased appetite abdominal distention patient be diagnosed with cirrhosis of the liver secondary to alcoholism did have paracentesis abdominal culture negative with worsening white count prompted this consultation.Patient is status post paracentesis completed 04/12/2024 patient tolerated the procedure On today's evaluation that is 04/17/2024, the patient continues to be afebrile, the patient is on room air and breathing comfortably, the Pt denies having any chest pain or cough, the patient denies having any abdominal pain no vomiting or any diarrhea has been reported by the nursing staff, mention feeling slightly better today. Patient white count is low at 18.4, creatinine is 2.22 Objective - Vital Signs Vital signs: Vital Signs Temp 97.3 F L 04/17/24 14:19 Pulse 91 04/17/24 14:19 Resp 18 04/17/24 14:19 BP 111/55 04/17/24 14:19 Pulse Ox 92 L 04/17/24 14:19 FiO2 Intake & Output 04/16/24 04/17/24 04/17/24 18:59 06:59 18:59 Intake Total 1000 Balance 1000 Intake: Intake, IV Titration 1000 Amount Piperacillin-Tazobactam 3 100 .375 gm In Sodium Chloride 0.9% 100 ml @ 25 mls/hr IVPB Q8HR [facility]AQU[facility] Rx# :[id number] Sodium Chloride 0.9% 1, 900 000 ml @ 75 mls/hr IV . [id number] JOAQUINA Rx#:[id number] Other: Voiding Method Toilet Toilet # Voids 2 - Exam GENERAL DESCRIPTION: An elderly female lying in bed in no distress HEENT: Oral thrush RESPIRATORY SYSTEM: Unlabored breathing , decreased breath sounds at bases HEART: S1 S2 regular rate and rhythm , ABDOMEN: Soft , no tenderness EXTREMITIES: No edema feet - Labs CBC & Chem 7: 04/17/24 11:01 04/17/24 11:01 Labs: Abnormal Lab Results - Last 24 Hours (Table) 04/17/24 04/17/24 Range/Units 11:01 11:01 WBC 18.4 H (3.8-10.6) k/uL RBC 2.40 L (3.80-5.40) m/uL Hgb 9.7 L (11.4-16.0) gm/dL Hct 27.7 L (34.0-46.0) % MCV 115.4 H (80.0-100.0) fL MCH 40.4 H (25.0-35.0) pg Neutrophils # (Manual) 15.46 H (1.3-7.7) k/uL Lymphocytes # (Manual) 0.92 L (1.0-4.8) k/uL Monocytes # (Manual) 1.66 H (0-1.0) k/uL Metamyelocytes # (Man) 0.18 H (0) k/uL Myelocytes # (Manual) 0.18 H (0) k/uL Macrocytosis Marked A Sodium 125 L (137-145) mmol/L Carbon Dioxide 12 L (22-30) mmol/L BUN 43 H (7-17) mg/dL Creatinine 2.22 H (0.52-1.04) mg/dL Glucose 129 H (74-99) mg/dL Calcium 8.0 L (8.4-10.2) mg/dL Total Bilirubin 8.3 H (0.2-1.3) mg/dL AST 119 H (14-36) U/L ALT 45 H (4-34) U/L Alkaline Phosphatase 135 H (38-126) U/L Albumin 2.5 L (3.5-5.0) g/dL Microbiology - Last 24 Hours (Table) 04/12/24 10:27 Anaerobic Culture - Final Ascites Fluid Assessment and Plan (1) Leukocytosis Current Visit: Yes Status: Acute Code(s): D72.829 - ELEVATED WHITE BLOOD CELL COUNT, UNSPECIFIED SNOMED Code(s): 204786822 (2) Oral thrush Current Visit: Yes Status: Acute Code(s): B37.0 - CANDIDAL STOMATITIS SNOMED Code(s): 82830967 Plan: 1patient with elevated white count and this patient presented to hospital with weakness decreased appetite did have a abdominal ascites from cirrhosis of the liver status post paracentesis and those culture has been negative patient did not have any fever during this hospital stay noticed to have mild thrush could be etiology of this elevated white count has no other obvious focus of infection 2-UA has been negative, CT of the chest no pneumonia however the patient did have elevated procalcitonin 3-patient did have CT abdominal pelvis with oral contrast which did shows significant ascites and possible inflammation of the small bowel 4-patient is status post paracentesis did have cloudy peritoneal fluid and mild elevated white count, peritoneal fluid culture has been negative so far patient did have a persistent elevated white count also with repeat accumulation of the ascitic fluid will benefit from transfer to tertiary care for more aggressive treatment of underlying cirrhosis and recurrent ascites 5the patient white count is trending down continue with Ceftin and Flagyl Dictation was produced using [employer] dictation software. please excuse any grammatical, word or spelling errors. Time with Patient: Less than 30
[2024-04-17] MEDS: SODIUM CHLORIDE 0.9% 500 ML 500 ML IV ONE (18:21)
[2024-04-17 22:07] VITALS: TEMP 98
[2024-04-18 01:58] VITALS: PULSE 86
[2024-04-18 06:39] VITALS: BP 101/46
[2024-04-18] MEDS ORDERED: PANTOPRAZOLE 40 MG TABLET PO ONE (08:59)
[2024-04-18] MEDS ORDERED: metroNIDAZOLE 500 MG TAB ONE ×3 (09:00→21:31)
[2024-04-18] MEDS ORDERED: MIDODRINE 5 MG TAB ONE ×2 (11:45→17:01)
[2024-04-19] MEDS ORDERED: PANTOPRAZOLE 40 MG TABLET PO ONE (06:18)
[2024-04-19] MEDS ORDERED: MIDODRINE 5 MG TAB ONE ×4 (06:18→17:10)
[2024-04-19] MEDS ORDERED: metroNIDAZOLE 500 MG TAB ONE ×3 (10:08→23:34)
[2024-04-19] MEDS ORDERED: IPRATROPIUM-ALBUTEROL 3 ML NEB ONE (20:17)
[2024-04-20] MEDS ORDERED: metroNIDAZOLE 500 MG TAB ONE ×3 (07:28→22:25)
[2024-04-20] MEDS ORDERED: MIDODRINE 5 MG TAB ONE ×3 (07:50→17:32)
[2024-04-20] MEDS ORDERED: PANTOPRAZOLE 40 MG TABLET PO ONE (07:50)
[2024-04-20] MEDS ORDERED: FUROSEMIDE 20 MG TAB ONE (13:38)
[2024-04-20] MEDS ORDERED: LACTULOSE 20 GM/30 ML CUP ONE ×4 (13:39→22:25)
[2024-04-20] MEDS ORDERED: SPIRONOLACTONE 25 MG TAB ONE (13:40)
[2024-04-21] MEDS ORDERED: IPRATROPIUM-ALBUTEROL 3 ML NEB ONE (07:52)
[2024-04-21] MEDS ORDERED: SPIRONOLACTONE 25 MG TAB ONE ×2 (08:33→22:41)
[2024-04-21] MEDS ORDERED: metroNIDAZOLE 500 MG TAB ONE ×3 (08:34→22:41)
[2024-04-21] MEDS ORDERED: PANTOPRAZOLE 40 MG TABLET PO ONE (08:34)
[2024-04-21] MEDS ORDERED: MIDODRINE 5 MG TAB ONE ×4 (08:34→22:42)
[2024-04-21] MEDS ORDERED: LACTULOSE 20 GM/30 ML CUP ONE ×4 (08:34→16:20)
[2024-04-21] MEDS ORDERED: FUROSEMIDE 20 MG TAB ONE (08:35)
[2024-04-21] MEDS ORDERED: FUROSEMIDE 10 MG/ML 4 ML VIAL ONE ×2 (12:44)
[2024-04-21] MEDS ORDERED: POTASSIUM CHLORIDE ER 20 MEQ TAB.ER PO ONE ×2 (12:45)
[2024-04-21] MEDS ORDERED: SODIUM BICARB 8.4% 50 ML SYR (1 MEQ/ML) ONE ×2 (12:52)
[2024-04-22] MEDS ORDERED: SPIRONOLACTONE 25 MG TAB ONE (08:33)
[2024-04-22] MEDS ORDERED: MIDODRINE 5 MG TAB ONE ×3 (08:34→16:57)
[2024-04-22] MEDS ORDERED: metroNIDAZOLE 500 MG TAB ONE ×2 (08:34→20:28)
[2024-04-22] MEDS ORDERED: PANTOPRAZOLE 40 MG TABLET PO ONE (08:34)
[2024-04-22] MEDS ORDERED: FUROSEMIDE 20 MG TAB ONE (08:34)
[2024-04-22] MEDS ORDERED: fentaNYL (PF) 50 MCG/ML 2 ML AMP ONE (10:36)
[2024-04-22] MEDS ORDERED: MIDAZOLAM 2 MG/2 ML VIAL ONE (10:36)
[2024-04-22] MEDS ORDERED: POTASSIUM CHLORIDE ER 20 MEQ TAB.ER PO ONE ×2 (12:39)
[2024-04-23] MEDS ORDERED: PANTOPRAZOLE 40 MG TABLET PO ONE (05:46)
[2024-04-23] MEDS ORDERED: MIDODRINE 5 MG TAB ONE ×3 (05:46→17:12)
[2024-04-23] MEDS ORDERED: metroNIDAZOLE 500 MG TAB ONE ×3 (11:57→21:20)
[2024-04-23] MEDS ORDERED: LACTULOSE 20 GM/30 ML CUP ONE ×4 (11:59→17:13)
[2024-04-24] MEDS ORDERED: MIDODRINE 5 MG TAB ONE ×2 (05:55→17:46)
[2024-04-24] MEDS ORDERED: PANTOPRAZOLE 40 MG TABLET PO ONE ×2 (05:55→09:27)
[2024-04-24] MEDS ORDERED: LACTULOSE 20 GM/30 ML CUP ONE ×2 (09:27)
[2024-04-24] MEDS ORDERED: metroNIDAZOLE 500 MG TAB ONE ×3 (09:28→21:17)
[2024-04-25] MEDS ORDERED: MIDODRINE 5 MG TAB ONE ×3 (06:43→16:59)
[2024-04-25] MEDS ORDERED: PANTOPRAZOLE 40 MG TABLET PO ONE (06:43)
[2024-04-25] MEDS ORDERED: LACTULOSE 20 GM/30 ML CUP ONE ×4 (09:25→15:31)
[2024-04-25] MEDS ORDERED: metroNIDAZOLE 500 MG TAB ONE ×3 (09:25→22:11)
[2024-04-25] MEDS ORDERED: PIPERACILLIN-TAZOBACTAM 3.375 GM VIAL ONE (13:24)
[2024-04-26] MEDS ORDERED: PIPERACILLIN-TAZOBACTAM 3.375 GM VIAL ONE ×2 (00:03→12:27)
[2024-04-26] MEDS ORDERED: PANTOPRAZOLE 40 MG TABLET PO ONE (06:39)
[2024-04-26] MEDS ORDERED: MIDODRINE 5 MG TAB ONE ×3 (06:40→18:06)
[2024-04-26] MEDS ORDERED: metroNIDAZOLE 500 MG TAB ONE ×3 (10:40→20:42)
[2024-04-26] MEDS ORDERED: FLUCONAZOLE 100 MG TAB ONE (18:06)
[2024-04-26] MEDS ORDERED: LACTULOSE 20 GM/30 ML CUP ONE ×2 (18:06)
[2024-04-27] MEDS ORDERED: PIPERACILLIN-TAZOBACTAM 3.375 GM VIAL ONE ×2 (00:29→14:25)
[2024-04-27] MEDS ORDERED: MIDODRINE 5 MG TAB ONE ×4 (01:12→16:16)
[2024-04-27] MEDS ORDERED: PANTOPRAZOLE 40 MG TABLET PO ONE (06:27)
[2024-04-27] MEDS ORDERED: metroNIDAZOLE 500 MG TAB ONE ×3 (08:52→21:01)
[2024-04-27] MEDS ORDERED: FLUCONAZOLE 100 MG TAB ONE (14:25)
[2024-04-27] MEDS ORDERED: POTASSIUM CHLORIDE ER 20 MEQ TAB.ER PO ONE ×2 (16:15)
[2024-04-27] MEDS ORDERED: LACTULOSE 20 GM/30 ML CUP ONE ×2 (21:00)
[2024-04-28] MEDS ORDERED: PIPERACILLIN-TAZOBACTAM 3.375 GM VIAL ONE ×2 (00:15→13:04)
[2024-04-28] MEDS ORDERED: PANTOPRAZOLE 40 MG TABLET PO ONE (06:28)
[2024-04-28] MEDS ORDERED: MIDODRINE 5 MG TAB ONE ×3 (06:35→17:27)
[2024-04-28] MEDS ORDERED: LACTULOSE 20 GM/30 ML CUP ONE ×4 (08:40→15:15)
[2024-04-28] MEDS ORDERED: metroNIDAZOLE 500 MG TAB ONE ×3 (08:40→21:06)
[2024-04-28] MEDS ORDERED: FLUCONAZOLE 100 MG TAB ONE (13:07)
[2024-04-29] MEDS ORDERED: PIPERACILLIN-TAZOBACTAM 3.375 GM VIAL ONE ×2 (01:36→14:56)
[2024-04-29] MEDS ORDERED: PANTOPRAZOLE 40 MG TABLET PO ONE (06:14)
[2024-04-29] MEDS ORDERED: MIDODRINE 5 MG TAB ONE ×5 (06:14→15:32)
[2024-04-29] MEDS ORDERED: metroNIDAZOLE 500 MG TAB ONE (09:07)
[2024-04-29] MEDS ORDERED: LACTULOSE 20 GM/30 ML CUP ONE ×6 (09:16→20:52)
[2024-04-29] MEDS ORDERED: FLUCONAZOLE 100 MG TAB ONE (14:56)
[2024-04-30] MEDS ORDERED: PIPERACILLIN-TAZOBACTAM 3.375 GM VIAL ONE ×2 (01:18→12:59)
[2024-04-30] MEDS ORDERED: MIDODRINE 5 MG TAB ONE ×4 (06:51→22:19)
[2024-04-30] MEDS ORDERED: PANTOPRAZOLE 40 MG TABLET PO ONE ×2 (06:51→08:39)
[2024-04-30] MEDS ORDERED: LACTULOSE 20 GM/30 ML CUP ONE ×4 (08:41→16:26)
[2024-04-30] MEDS ORDERED: FLUCONAZOLE 100 MG TAB ONE (12:59)
[2024-05-01] MEDS ORDERED: FLUCONAZOLE 100 MG TAB ONE (09:43)
[2024-05-01] MEDS ORDERED: PIPERACILLIN-TAZOBACTAM 3.375 GM VIAL ONE ×2 (14:10→23:06)
[2024-05-01] MEDS ORDERED: MIDODRINE 5 MG TAB ONE (17:17)
[2024-05-01] MEDS ORDERED: POTASSIUM CHLORIDE ER 20 MEQ TAB.ER PO ONE ×2 (17:25)
[2024-05-01] MEDS ORDERED: LACTULOSE 20 GM/30 ML CUP ONE ×2 (21:05)
[2024-05-02] MEDS ORDERED: PANTOPRAZOLE 40 MG TABLET PO ONE (06:33)
[2024-05-02] MEDS ORDERED: MIDODRINE 5 MG TAB ONE ×3 (06:34→10:28)
[2024-05-02] MEDS ORDERED: FLUCONAZOLE 100 MG TAB ONE ×2 (09:07)
[2024-05-02] MEDS ORDERED: LACTULOSE 20 GM/30 ML CUP ONE ×2 (09:07)
[2024-05-03] MEDS ORDERED: PIPERACILLIN-TAZOBACTAM 3.375 GM VIAL ONE ×2 (01:01)
[2024-05-03] MEDS ORDERED: MIDODRINE 5 MG TAB ONE ×3 (06:01→12:30)
[2024-05-03] MEDS ORDERED: PANTOPRAZOLE 40 MG TABLET PO ONE (06:01)
[2024-05-03] MEDS ORDERED: LACTULOSE 20 GM/30 ML CUP ONE ×2 (11:37)
[2024-05-03] MEDS ORDERED: POTASSIUM CHLORIDE ER 20 MEQ TAB.ER PO ONE ×2 (12:22)
[2024-05-03] MEDS ORDERED: METOPROLOL TARTRATE 25 MG TAB ONE ×4 (12:23→22:09)
[2024-05-03 12:42] LABS: Glucose,Whole Blood 123 mg/dL (70-110)
[2024-05-04] MEDS ORDERED: PANTOPRAZOLE 40 MG TABLET PO ONE (08:37)
[2024-05-04] MEDS ORDERED: METOPROLOL TARTRATE 25 MG TAB ONE ×2 (08:37)
[2024-05-04] MEDS ORDERED: MIDODRINE 5 MG TAB ONE ×6 (08:37→19:16)
[2024-05-04] MEDS ORDERED: LACTULOSE 20 GM/30 ML CUP ONE ×2 (20:31)
[2024-05-04] MEDS ORDERED: PIPERACILLIN-TAZOBACTAM 3.375 GM VIAL ONE ×2 (23:02)
[2024-05-04] MEDS ORDERED: METOPROLOL TARTRATE 12.5 MG TAB ONE ×2 (23:02)
[2024-05-05] MEDS ORDERED: PANTOPRAZOLE 40 MG TABLET PO ONE (06:45)
[2024-05-05] MEDS ORDERED: SODIUM BICARBONATE TAB 650 MG TAB ONE ×2 (08:37)
[2024-05-05] MEDS ORDERED: MIDODRINE 5 MG TAB ONE ×2 (08:37→09:03)
[2024-05-05] MEDS ORDERED: LACTULOSE 20 GM/30 ML CUP ONE ×2 (08:37)
[2024-05-05] MEDS ORDERED: METOPROLOL TARTRATE 12.5 MG TAB ONE ×2 (08:38)
[2024-05-05] MEDS ORDERED: PIPERACILLIN-TAZOBACTAM 3.375 GM VIAL ONE ×2 (08:38)
[2024-05-05] MEDS ORDERED: LORazepam 2 MG/ML INJ ONE ×2 (20:33)
[2024-05-06] MEDS ORDERED: ACETAMINOPHEN SUPPOSITORY 650 MG SUPP RECTAL PRN (07:45)
[2024-05-06] MEDS ORDERED: bisacodyL 10 MG SUPP RECTAL PRN (07:46)
[2024-05-06] MEDS ORDERED: ATROPINE OPHTH SOLN 1% 5ML BTL SUBLINGUAL PRN (07:52)
[2024-05-06] MEDS ORDERED: LORazepam 1 MG/0.5 ML VIAL IV SCH (08:00)
[2024-05-06] MEDS ORDERED: MORPHINE SULFATE 2 MG/ML SYRINGE IVP SCH (08:00)
--- NOTE | 2024-05-06 15:52 | PN ---
PROGRESS NOTE Date of service 04/24/2024 REASON FOR FOLLOWUP: Leukocytosis. INTERVAL HISTORY: The patient is afebrile. The patient is breathing comfortably on room air. The patient denies having any chest pain or shortness of breath or cough. Did have some abdominal distention, but no pain. Did have some liquidy stools. Denies any blood or mucus in the stool. PHYSICAL EXAMINATION: VITAL SIGNS: Blood pressure 92/55 with a pulse of 97, temperature 97.5. GENERAL DESCRIPTION: Middle-aged female, lying in bed, in no distress. RESPIRATORY SYSTEM: Unlabored breathing. Clear to auscultation anteriorly. HEART: S1 and S2. Regular rhythm. ABDOMEN: Soft. Slightly distended. No guarding or rigidity. LABORATORY DATA: No new labs have been obtained today. DIAGNOSTIC IMPRESSION AND PLAN: The patient with leukocytosis, which is likely multifactorial, possible reactive or related to SBP. The patient did have rapid accumulation of the ascitic fluid. Will benefit from repeat paracentesis scheduled for tomorrow. Repeat CBC. Continue with Ceftin and on Flagyl. at the bedside. Questions were answered. MMODL / IJN: [id number] / DIANNE
--- NOTE | 2024-05-06 15:52 | PN ---
Date of service is 04/25/2024 PROGRESS NOTE LOCATION: [facility]. REASON FOR FOLLOWUP: Leukocytosis. INTERVAL HISTORY: Patient is afebrile. The patient has been telling about getting weak, telling about blood pressure has been low. Patient denies nausea, vomiting. Abdominal distention, but no pain., No chest pain shortness of breath or cough PHYSICAL EXAMINATION: VITAL SIGNS: Blood pressure 87/49, pulse of 84, temperature is 98 F GENERAL DESCRIPTION: This is a middle-aged female, lying in bed, in no distress. RESPIRATORY SYSTEM: Unlabored breathing. Clear to auscultation anteriorly. HEART: S1 and S2. Regular rhythm. ABDOMEN: Soft. No tenderness. Has some distention. No guarding, rigidity. LABORATORY DATA: Reviewed DIAGNOSTIC IMPRESSION AND PLAN: The patient with leukocytosis, which is likely multifactorial, concerning for SBP now with evidence of renal failure requiring dialysis with worsening of the white count. We will repeat cultures and discontinue Ceftin and Flagyl start the patient on Zosyn, overall prognosis remains to be guarded. MMODL / IJN: [id number] / MTDD
--- NOTE | 2024-05-06 15:53 | PN ---
Date of service 04/27/2024 PROGRESS NOTE LOCATION: [facility]. REASON FOR FOLLOWUP: Leukocytosis. INTERVAL HISTORY: The patient is afebrile. The patient is feeling weak, lethargic, but not running any fever. Paracentesis could not be done yesterday because of low blood pressure. The patient is currently undergoing dialysis or ultrafiltration with no plan for removal of any fluid as reported by aviation electronics technician. The patient is having diarrhea, but she is getting lactulose. Abdominal distention but no significant pain. PHYSICAL EXAMINATION: VITAL SIGNS: Blood pressure is 83/34, pulse of 83, temperature is 97.8. GENERAL DESCRIPTION: This is an elderly female, lying in bed, in no distress. RESPIRATORY SYSTEM: Unlabored breathing. Clear to auscultation anteriorly. HEART: S1, S2. Regular rhythm. ABDOMEN: Soft, distended. No guarding or rigidity. LABS: The patient's white count is down to 19,000. DIAGNOSTIC IMPRESSION AND PLAN: The patient with leukocytosis which is multifactorial in this patient with cirrhosis of the liver and has developed hepatorenal syndrome, currently getting dialysis with recurrent paracentesis. Currently waiting for repeat paracentesis and fluid analysis. The patient currently covered with Zosyn and Diflucan. White count slightly trended down. We will monitor white count closely. at the bedside. Questions were answered. MMODL / IJN: [id number] / DIANNE
--- NOTE | 2024-05-06 15:53 | PN ---
Date of service 04/26/2024 PROGRESS NOTE LOCATION: [facility]. REASON FOR FOLLOWUP: Leukocytosis. INTERVAL HISTORY: The patient is afebrile, has been complaining of feeling weak. Did have slightly low blood pressure. Getting albumin transmission before the paracentesis. Denies any chest pain or cough. Currently on room air. Did have abdominal distention, but no worsening abdominal pain, vomiting, or diarrhea has been reported by the nursing staff. PHYSICAL EXAMINATION: VITAL SIGNS: Blood pressure is 89/44 with a pulse of 89, temperature of 98, she is 98% on room air. GENERAL DESCRIPTION: This is an elderly female, lying in bed, in no distress. RESPIRATORY SYSTEM: Unlabored breathing, decreased breath sounds in the bases. No wheeze. HEART: S1, S2. Regular rate and rhythm. ABDOMEN: Soft, mildly distended. No guarding or rigidity. LABORATORY DATA: Creatinine 3.26. White count is 21.4. DIAGNOSTIC IMPRESSION AND PLAN: The patient with leukocytosis which is multifactorial in this patient who did have a complicated history with cirrhosis of the liver, recurrent ascites, concern for possible spontaneous bacterial peritonitis. Did have worsening of the white count yesterday. Blood cultures were obtained which are currently pending. Antibiotic has been adjusted to Zosyn to continue, waiting for repeat paracentesis and fluid should be sent for cell count, differential, Gram stain and culture. We will add Diflucan. Repeat CBC in the a.m. Prognosis remains to be guarded. MMODL / IJN: [id number] / MTDD
--- NOTE | 2024-05-06 15:54 | PN ---
PROGRESS NOTE SUBJECTIVE: A white female with worsening cirrhosis, renal failure, hepatorenal syndrome, placed on Xifaxan. She has an INR of 2.2. She is on midodrine for hypotension. Give her vitamin K for 2.2 today for getting her INR below 2 for paracentesis tomorrow. She remains on broad-spectrum antibiotics for elevated white count, some breathing treatments. She is on oxygen for hypoxemia, low oxygen levels. Remains on broad- spectrum antibiotics, PPIs, etc. She remains weak, fatigued, possibly get dietary consult for possible TPN as she is getting very little nutrition in, possibly get some TPN going. We will get dietary consult and go from there. OBJECTIVE: CARDIOVASCULAR: S1, S2. LUNGS: Transmitted upper sounds. ABDOMEN: Distended. Hemoglobin is down to 7, white count is 19.3. We will check again after giving another unit of blood today. Glucose 124, albumin is 2.3, potassium is 3.2, total bilirubin is 7.7. PLAN: Possibly transfuse 1 unit of blood before paracentesis. Check orthostatic changes with ambulation. Continue the midodrine. Possibly TPN will be needed. We will get dietary consult. Give her 1 unit of packed red blood cells. Check labs in the morning. PROGNOSIS: Guarded. MMODL / IJN: [id number] /
--- NOTE | 2024-05-06 15:54 | PN ---
PROGRESS NOTE DATE OF SERVICE: 04/28/2024 LOCATION: 452. REASON FOR FOLLOWUP: Leukocytosis, possible SBP. INTERVAL HISTORY: The patient is afebrile. The patient's blood pressure and coagulation status remains to be abnormal. Unable to do the paracentesis. Denies any chest pain or cough. Has complained of abdominal distention, but no nausea, vomiting, or worsening diarrhea. PHYSICAL EXAMINATION: VITAL SIGNS: Blood pressure is 88/52 with a pulse of 90, temperature 98.1. GENERAL DESCRIPTION: This is an elderly female, lying in bed, in no distress. RESPIRATORY SYSTEM: Unlabored breathing, decreased breath sounds at the base. HEART: S1, S2. Regular rhythm. ABDOMEN: Soft, distended. No guarding, or rigidity. LABORATORY DATA: CBC is pending from this morning. DIAGNOSTIC IMPRESSION AND PLAN: The patient with leukocytosis which is multifactorial with concern for possible SBP in this patient who did have alcoholic cirrhosis of the liver and also developed hepatorenal syndrome. Overall prognosis remains to be guarded. Currently waiting for repeat paracentesis. The patient is broadly covered with Zosyn. Diflucan to continue. Repeat CBC with a.m. labs. at the bedside. Questions were answered. MMODL / IJN: [id number] /
--- NOTE | 2024-05-06 15:54 | PN ---
PROGRESS NOTE DATE OF SERVICE: 04/27/2024 SUBJECTIVE: This is a white female hepatorenal failure secondary to cirrhosis of the liver. INR is over 2.5. We are giving her vitamin K daily 10 mg if INR is over 2.5. Orthostatic hypotension as her blood pressure has been low. She is on midodrine 10 t.i.d., we may go up to 15 t.i.d. if it continues to remain low versus give fluid boluses. Hemoglobin 7.2 to 7.0 today. They are going to give her a unit of blood today for anemia. She is on per Nephrology. Her bilirubin remains in the 7's. She remains looking jaundiced. Her strength is fairly good for what she has been through. OBJECTIVE: CARDIOVASCULAR: S1-S2. LUNGS: Transmitted upper sounds. ABDOMEN: Soft, tender. LABS: Potassium is 3.2, replacement with 40 mEq of potassium today. Albumin is 2.3. Glucose 124, BUN is 28, creatinine is 4.03 which is elevated. Her bilirubin remains at 7.7. Liver enzymes remain high, AST and ALT 99 and 56. ASSESSMENT: She has acute renal failure with no urine output essentially secondary to cirrhosis and hepatic failure. Remains on all the above medicines. PLAN: She is going to get dialysis today, possibly thoracentesis at different times and paracentesis at different times. Continue current treatment. Prognosis guarded. Continue current medications. She can go to [facility] for rehab placement when she gets better. She will get on dialysis 3 times a week. Try to stabilize her electrolytes and her anemia prior to discharge. We will get PT/OT involved with her. Please see further orders. MMODL / IJN: [id number] /
--- NOTE | 2024-05-06 15:55 | PN ---
Date of service 04/29/2024 PROGRESS NOTE LOCATION: [facility]. REASON FOR FOLLOWUP: Leukocytosis, possible SBP. INTERVAL HISTORY: The patient is afebrile. The patient is status post paracentesis this morning and removal of 7.7 L of fluid. The patient has tolerated the procedure. Her blood pressure is low but not complaining of any dizziness or weakness. No chest pain, shortness of breath, or cough. Still having diarrhea, but she is on lactulose as well. PHYSICAL EXAMINATION: VITAL SIGNS: Blood pressure 77/54, pulse of 89, temperature of 97.6. GENERAL DESCRIPTION: This is an elderly female lying in bed, in no distress. RESPIRATORY SYSTEM: Unlabored breathing. Decreased breath sounds in the base with no wheeze. HEART: S1, S2. Regular rate and rhythm. ABDOMEN: Soft. No distention. EXTREMITIES: No edema in the feet. LABORATORY DATA: White count from yesterday was 20.2, white count from this morning is pending. DIAGNOSTIC IMPRESSION AND PLAN: Patient with leukocytosis which is multifactorial. There was concern for possible spontaneous bacterial peritonitis. The patient is status post paracentesis. We will follow up on repeat fluid analysis. Covered with Zosyn and Diflucan. Flagyl to be discontinued. Discussed with the nursing staff as well as the at the bedside. MMODL / IJN: [id number] / DIANNE
--- NOTE | 2024-05-06 15:55 | PN ---
PROGRESS NOTE DATE OF SERVICE: 04/30/2024 LOCATION: 452. REASON FOR FOLLOWUP: Leukocytosis. INTERVAL HISTORY: The patient is afebrile. The patient is breathing comfortably on nasal cannula oxygen. No chest pain, shortness of breath or cough. No vomiting or any worsening diarrhea has been reported. The patient is already getting lactulose. PHYSICAL EXAMINATION: VITAL SIGNS: Blood pressure of 78/37, pulse of 76, temperature 98.1. GENERAL DESCRIPTION: Elderly female lying in bed in no distress. Respiratory System: Unlabored breathing, decreased breath sounds at the bases. No wheeze. Heart: S1, S2. Regular rate and rhythm. Abdomen: Soft, less distended, no rigidity. LABS: CBC pending from this morning. DIAGNOSTIC IMPRESSION AND PLAN: The patient with leukocytosis, multifactorial, with concern for spontaneous bacterial peritonitis. Initial culture, negative, repeat. Paracentesis completed yesterday. We will wait for cell count Gram stain and culture. For now, continue with Zosyn and Diflucan. Overall prognosis remains to be guarded. MMODL / IJN: [id number] / MTDD
--- NOTE | 2024-05-06 15:55 | PN ---
PROGRESS NOTE SUBJECTIVE: This is a white female with hepatorenal failure, protein calorie malnutrition, leukocytosis secondary to peritoneal infection, most likely cause getting on the hepatic transplant list, which will be done hopefully tomorrow. She can talk to she is in good spirits. OBJECTIVE: VITAL SIGNS: Reviewed. CARDIOVASCULAR: S1, S2. ABDOMEN: Distended. EXTREMITIES: 2+ edema. She is ambulating few steps with family. She is eating mild amount of food. Blood pressures are maintaining in the low 90s over 60s. Cardiovascular S1, S2. PLAN: Hepatorenal syndrome possible hepatic transplant down the road. Discussed otherwise continue current treatment. Paracentesis and dialysis as tolerated for increased mobility and nutrition. MMODL / IJN: [id number] /
--- NOTE | 2024-05-06 15:55 | PN ---
Date of service 05/01/2024 PROGRESS NOTE REASON FOR FOLLOWUP: Leukocytosis/SBP. INTERVAL HISTORY: The patient is afebrile. Complaining of feeling weak and tired. The patient denies having any chest pain, shortness of breath, cough, or any abdominal pain. Did have diarrhea, but getting lactulose. PHYSICAL EXAMINATION: VITAL SIGNS: Blood pressure is 91/55, pulse of 100, and temperature 97.8. GENERAL: The patient is an elderly female, lying in bed in no distress. RESPIRATORY SYSTEM: Unlabored breathing. Clear to auscultation anteriorly. HEART: S1, S2. Regular. ABDOMEN: Soft, has more distention today compared to yesterday, but no tenderness. LABORATORY DATA: Reviewed DIAGNOSTIC IMPRESSION AND PLAN: The patient with leukocytosis, which is multifactorial in this patient, who did have cirrhosis of the liver with concern for SBP. We are currently awaiting for repeat peritoneal fluid analysis and culture. The patient's white count is trending down. Continue Zosyn and Diflucan. Prognosis remains to be guarded. MMODL / IJN: [id number] / MTDD
--- NOTE | 2024-05-06 15:55 | PN ---
PROGRESS NOTE SUBJECTIVE: This is a white female with hepatorenal failure secondary to cirrhosis, still having a lot of weakness, fatigue. She had dialysis, paracentesis yesterday. Remains on lactulose, Protonix, albumin with paracentesis yesterday. She had dialysis yesterday. She has vitamin K if INR is over 2.5. She is on midodrine depending on her hypertension. She is on Xifaxan, Zosyn, albumin, Zofran for nausea. Dr. Dye can stop the Flagyl. We will check labs daily and continue on IV antibiotics for possible peritoneal infection. Continue dialysis and paracentesis as necessary, I hope Dr. Moss can see her on Thursday to discuss with her possible liver transplant and the procedure to get this set up. We will continue current treatments on her. Prognosis extremely guarded. Please see further orders. MMODL / IJN: [id number] /
--- NOTE | 2024-05-06 15:55 | PN ---
PROGRESS NOTE DATE OF SERVICE: 04/29/2024 SUBJECTIVE: This is a white female with hepatorenal failure. Bilirubin is up to 8.3. She had thoracentesis, 7.2 L today. Fluid sent to the lab. She is getting dialysis for creatinine 4.0 with elevated BUN. OBJECTIVE: VITAL SIGNS: Blood pressure is running low 92 over 60s to 70s, pulse 73, heart rate 60 to 83, respiratory rate 12 to 14. GENERAL: She is alert, giving appropriate answers. Says she does not feel well. She looks jaundiced. ABDOMEN: Less edematous than yesterday. CARDIOVASCULAR: S1, S2. LUNGS: Decreased breath sounds. HEMATOLOGY: 2+ edema. Dietitian saw the patient for malnutrition, ordered Ensure. Does not want to do TPN. Sinus rhythm on the monitor. Wait for GI consultation on Thursday. Continue dialysis and paracentesis as needed and saw her for possible hepatic transplant if possible as soon as possible. Await what GI doctor says in the morning or next week, Dr. Moss. Prognosis guarded. Replace electrolytes as tolerated. White count, leukocytosis secondary to possible infection, paracentesis fluid. Continue on the Zosyn per Dr. Dye. MMODL / IJN: [id number] /
--- NOTE | 2024-05-06 15:56 | PN ---
Date of service 05/02/2024 PROGRESS NOTE LOCATION: [facility]. REASON FOR FOLLOWUP: Leukocytosis and concerning for possible SBP. INTERVAL HISTORY: The patient is afebrile. The patient is breathing comfortably on nasal cannula oxygen. She was undergoing dialysis. Blood pressure has been on softer side. Denies any nausea or vomiting. No abdominal pain or any worsening diarrhea. PHYSICAL EXAMINATION: VITAL SIGNS: Blood pressure is 88/55, pulse of 83, temperature 98.1. GENERAL DESCRIPTION: This is an elderly female, lying in bed, in no distress. RESPIRATORY SYSTEM: Unlabored breathing. Decreased intensity of breath sounds. No wheeze. HEART: S1, S2. Regular rate. ABDOMEN: Soft, mildly distended. No guarding or rigidity. EXTREMITIES: No edema in feet. LABORATORY DATA: White count is 19.3, creatinine 4.44. Repeat paracentesis fluid analysis report is currently pending. DIAGNOSTIC IMPRESSION AND PLAN: Patient with leukocytosis, multifactorial in this patient who did have cirrhosis and hepatorenal syndrome, concern for spontaneous bacterial peritonitis. The patient is covered with Zosyn and Diflucan. White count was 20 on exam yesterday, and repeat white count is currently pending. The patient will benefit from transfer to tertiary care. Discussed with the patient case manager. MMODL / IJN: [id number] / DIANNE
--- NOTE | 2024-05-06 15:56 | PN ---
PROGRESS NOTE DATE OF SERVICE: 05/03/2024 LOCATION: 255. REASON FOR FOLLOWUP: Leukocytosis, possible SBP. INTERVAL HISTORY: The patient did develop atrial fibrillation with RVR while undergoing dialysis. The patient subsequently has been transferred to the ICU. The patient is currently on low- dose pressor support as reported by the nursing staff. The patient is complaining of feeling weak, lethargic. Denies any chest pain, shortness of breath, or cough. Has complaints of abdominal distention and discomfort, nausea but no vomiting. Having bowel movement and is getting lactulose. EXAMINATION: VITAL SIGNS: Blood pressure 89/44, pulse of 82, temperature 97.8. She is 100% on 2 L cannula. GENERAL: Patient is elderly female, lying in bed in no distress. RESPIRATORY SYSTEM: Unlabored breathing, decreased breath sounds in the base, no wheeze. HEART: S1, S2. Regular rate. ABDOMEN: Soft, remain to be distended. EXTREMITIES: No edema in the feet. LABORATORY DATA: White count is down to 17.84, creatinine 4.45. DIAGNOSTIC IMPRESSION AND PLAN: Patient with leukocytosis which is multifactorial in this patient who did have cirrhosis of the liver, possible SBP. The patient did have a repeat paracentesis. We are still waiting for the analysis and the culture. She is broadly covered with Zosyn, Diflucan to continue. White count is trending down. Prognosis remains to be guarded. Will benefit from transfer to the tertiary care/Hepatology unit. MMODL / IJN: [id number] /
--- NOTE | 2024-05-06 15:56 | PN ---
PROGRESS NOTE SUBJECTIVE: She is being transferred to [facility] for hepatorenal syndrome for end-stage cirrhosis for possible hepatic transplant or renal transplant by the transplant team evaluation prior to going to rehab. She is unable to tolerate much dialysis due to hypotension. She remains on midodrine 15 t.i.d., they stopped dialysis intermittently due to hypotension. OBJECTIVE: VITAL SIGNS: Reviewed. CARDIOVASCULAR : S1, S2. ABDOMEN: Soft. EXTREMITIES: Less edema in the legs, 1 to 2+ today. LABORATORY DATA: Labs showed protein level 6.2 with albumin 2.6 with a glucose 180, creatinine is 4.44, CO2 is 21, bilirubin is 6.4, which is the best it has been in a long time. PLAN: To transfuse per hepatorenal team for possible transplant. Continue current treatments. Please see further orders. MMODL / IJN: [id number] /
--- NOTE | 2024-05-06 15:57 | PN ---
Date of service 05/04/2024 PROGRESS NOTE LOCATION: 255. REASON FOR FOLLOWUP: Leukocytosis, possible SBP. INTERVAL HISTORY: The patient is afebrile. The patient is currently on pressors. The patient apparently has been refusing to get transferred to [facility]. The patient mentioned Not happy from the decision. Denies any headache. No chest pain, shortness of breath, or cough. Still has some abdominal distention, and no worsening diarrhea has been reported. PHYSICAL EXAMINATION: VITAL SIGNS: Blood pressure 110/60 on pressors, pulse of 80, temperature 98. GENERAL DESCRIPTION: This is an elderly female, lying in bed, in no distress. RESPIRATORY SYSTEM: Unlabored breathing. Decreased breath sounds in the base. HEART: S1, S2. Regular. ABDOMEN: Slightly distended. No guarding or rigidity. LABORATORY DATA: White count down to 16.42. DIAGNOSTIC IMPRESSION AND PLAN: The patient with leukocytosis which is multifactorial with concern for possible SBP. We are still waiting on repeat peritoneal fluid analysis as well as cultures. The patient's white count is trending down and is down to 16,000 today. Covered with Zosyn and Diflucan. Monitor clinical course closely. Overall prognosis remains to be guarded. Possible hospice. at the bedside. Questions answered. MMODL / IJN: [id number] / DIANNE
--- NOTE | 2024-05-06 15:57 | PN ---
PROGRESS NOTE SUBJECTIVE: This is a white female, 255 in ICU. Nurses have talked to her, I have talked to her. She is tired of fighting. She wants a hospice consult. Her is in agreement with hospice, come talk to the patient today and she will decide whether she is going to stop all her care which is what she most likely is going to do due to poor prognosis and unable [place] be [place] city with multiple attempts by myself and Dr. Moss with hepatology people at [facility]. She is on vasopressin and norepinephrine to keep her blood pressure up in the 90s to 100s systolically, now maintaining blood pressure elevation. No dialysis is done today and most of the labs are not back today, especially the bilirubin. Discussed with her the prognosis with dialysis and monitoring the liver function over the next 3-4 months and the patient does not want to do this at this time. PROGNOSIS: Guarded. Please continue current treatment. Prognosis guarded. Ambulate as tolerated. MMODL / IJN: [id number] /
--- NOTE | 2024-05-06 15:57 | PN ---
PROGRESS NOTE DATE OF SERVICE: 05/03/2024 SUBJECTIVE: This is a white female who remains on norepinephrine ICU, low doses for blood pressure control. Discussed the case with Shashank Jung multiple times, they do not want to take the patient on transfer. Discussed case with Dr. Nury Moss who is going to call herself to talk to the stator tester at [facility] to see if they will change their mind and take the patient. Meantime, the patient went into AFib with RVR. She is now back in sinus rhythm in ICU. She is weak, fatigued. She has minimal ambulation, minimal food intake. She is alert and oriented x3. Bilirubin is 7, creatinine is in the 4s. White count remains 21K. Dr. Dye got her on antibiotics for her spontaneous bacterial peritonitis, most likely. OBJECTIVE: CARDIOVASCULAR: S1, S2. She has regular rhythm now. LUNGS: Transmitted upper sounds. GI: Soft. HEMATOLOGY: Negative for Homans. ASSESSMENT: Most likely hepatorenal syndrome secondary to cirrhosis with acute renal failure on dialysis on paracentesis every few days, not tolerating oral Lasix or spironolactone due to severe hypotension despite midodrine. The patient is deciding whether she wants hospice or not, will discuss more with Dr. Nury Moss. Remain on current treatments. Check labs in the morning. ICU time 20 minutes. MMODL / IJN: [id number] /
--- NOTE | 2024-05-06 15:58 | PN ---
PROGRESS NOTE DATE OF SERVICE: 05/05/2024 LOCATION: 255. INTERVAL HISTORY: The patient is afebrile. The patient is currently hemodynamically stable, still requiring pressor support. She is on nasal cannula oxygen. No chest pain, shortness of breath, or cough. Did have some abdominal distention. No worsening diarrhea reported. PHYSICAL EXAMINATION: VITAL SIGNS: Blood pressure 117/61 with pulse of 65. GENERAL DESCRIPTION: This is an elderly female, lying in bed, in no distress. RESPIRATORY SYSTEM: Unlabored breathing. Clear to auscultation anteriorly. ABDOMEN: Distended. EXTREMITIES: No edema in the feet. DIAGNOSTIC IMPRESSION AND PLAN: The patient with leukocytosis, multifactorial, likely component of spontaneous bacterial peritonitis. The patient did have renal failure and also started developing other comorbidities. Could not be transferred to [facility]. Family has decided for possible hospice which may be appropriate. Zosyn and Diflucan to be safely discontinued. at the bedside. Questions were answered. MMODL / IJN: [id number] / DIANNE
[2024-05-06] MEDS ORDERED: MORPHINE SULFATE 2 MG/ML SYRINGE ONE ×2 (19:01→19:40)
[2024-05-07] MEDS ORDERED: MORPHINE SULFATE 2 MG/ML SYRINGE ONE ×5 (09:43→18:45)
[2024-05-07] MEDS ORDERED: MORPHINE SULFATE 4 MG/ML SYRINGE ONE ×2 (16:28)
[2024-05-08] MEDS ORDERED: MORPHINE SULFATE 2 MG/ML SYRINGE IV PRN (00:46)
[2024-05-08] MEDS ORDERED: MORPHINE SULFATE (100 MG/2 ML) 100 MG in SODIUM CHLORIDE 0.9% 100 ML IV SCH (01:00)
[2024-05-11 11:08] LABS: Chloride 104 mmol/L (98-107); Glucose 105 mg/dL (74-99); Potassium 3.8 mmol/L (3.5-5.1); Sodium 126 mmol/L (137-145)
[2024-05-11 11:09] LABS: Albumin 2.4 g/dL (3.5-5.0); Albumin/Globulin Ratio 0.6; Anion Gap 13 mmol/L; Blood Urea Nitrogen 47 mg/dL (7-17); Calcium 7.9 mg/dL (8.4-10.2); Carbon Dioxide 9 mmol/L (22-30); Globulin 4.1 g/dL; Total Protein 6.5 g/dL (6.3-8.2)
[2024-05-11 11:10] LABS: ALT 43 U/L (4-34); AST 112 U/L (14-36); Alkaline Phosphatase 136 U/L (38-126)
[2024-05-11 11:11] LABS: HCT 29.6 % (34.0-46.0); HGB 9.6 gm/dL (11.4-16.0); MCH 39.4 pg (25.0-35.0); MCHC 32.3 g/dL (31.0-37.0); MCV 121.9 fL (80.0-100.0); Mean Platelet Volume 10.3; Platelet Count 171 k/uL (150-450); RBC 2.43 m/uL (3.80-5.40); RDW 14.4 % (11.5-15.5); WBC 18.4 k/uL (3.8-10.6)
[2024-05-11 11:12] LABS: Eosinophils # (M) 0.37 k/uL (0-0.7); Lymphocytes # (M) 2.39 k/uL (1.0-4.8); Metamyelocytes # (M) 0.18 k/uL (0); Metamyelocytes % 1 %; Monocytes # (M) 1.47 k/uL (0-1.0); Myelocytes # (M) 0.18 k/uL (0); Myelocytes % 1 %; Neutrophils % (M) 75 %
--- NOTE | 2024-05-13 08:37 | XR ---
Report Patient: Beena Esqueda Ordering Physician: Unknown, Unknown ID: [id number] Phone, Pager: Phone: N/A Pager: N/A : N/A Age/Gender: N/A, O Primary Location: N/A Procedure: XR Chest 1 View Study Date: 05/04/2024 10:43:00 AM EXAMINATION TYPE: XR chest 1V DATE OF EXAM: 05/04/2024, dictated on 05/07/2024 due to downtime COMPARISON: NONE HISTORY: 68-year-old female central line placement TECHNIQUE: Single frontal view of the chest is obtained. FINDINGS: Left subclavian CVC tip in the mid to lower right atrium. Right-sided double-lumen hemodia lysis catheter tips at the upper right atrium. Heart borderline in size. Diffuse interstitial opacity . Small left pleural effusion with patchy bibasilar densities. IMPRESSION: 1. Left subclavian CVC tip at the mid to lower right atrium. 2. Correlate for CHF with pulmonary vascular congestion. 3. Small pleural effusions with adjacent atelectasis and/or consolidation.
--- NOTE | 2024-05-13 08:42 | XR ---
synapse default - Radiology Report Patient: Beena Esqueda Ordering Physician: Unknown, Unknown ID: [id number] Phone, Pager: Phone: N/A Pager: N/A : 1955 Age/Gender: 68Y, F Primary Location: N/A Procedure: cxr 1v Study Date: 05/05/2024 5:06:31 AM Order #: [id number] Report Status: Unknown EXAMINATION TYPE: XR chest 1V DATE OF EXAM: 05/06/2024 HISTORY: Shortness of breath. COMPARISON: None. TECHNIQUE: Single view of the chest is submitted. FINDINGS: Demonstrated are scattered senescent parenchymal change. Pulmonary venous congestion with small effusions and scattered Dada B-lines. The heart is stable. Hilar and mediastinal structures are within normal limits. Degenerative changes are seen of the dorsal spine. IMPRESSION: 1. Correlate for volume overload.
--- NOTE | 2024-05-17 12:44 | US ---
EXAMINATION TYPE: US paracentesis abd w/image DATE OF EXAM: 05/09/2024 CLINICAL HISTORY: 68-year-old female referred for ultrasound-guided paracentesis The procedure was discussed with the patient. The risks, complications, benefits, and alternatives we re discussed and any questions were answered. Informed consent was obtained. The patient was placed s upine on the ultrasound table and prepped and draped in the usual sterile fashion. All elements of maximal barrier technique were utilized. Ultrasound was utilized to determine the precise skin entry site along the right lower quadrant. Utilizing trocar technique and a 6 Bengali safety centesis catheter, access into the right lower quadr ant was obtained. Approximately 7.7 L of fluid was removed. The patient was stable throughout the procedure and remaine d stable upon discharge from Department of Radiology. IMPRESSION: Successful paracentesis under ultrasound guidance. 7.7 L of fluid removed.
--- NOTE | 2024-05-18 16:23 | US ---
Site ID [facility] Patient Beena Esqueda ID [id number] 1955 Age/Gender: 68Y, F Order # [id number] Procedure US renals and bladder Date 04/22/2024 2:14:00 PM Reason KAREN EXAMINATION TYPE: US renals and bladder DATE OF EXAM: 04/22/2024 COMPARISON: CT abdomen pelvis 04/09/2024 CLINICAL INDICATION: Female, 68 years old with history of KAREN; EXAM MEASUREMENTS: Right Kidney: 11.3 x 4.7 x 5.1 cm Left Kidney: 12.0 x 6.1 x 4.9 cm Right Kidney: wnl Left Kidney: wnl Bladder: Not visualized Cirrhotic appearance of the visualized liver with surface nodularity. Perihepatic ascites identified. There is no evidence for hydronephrosis at this point in time. Cortical medullary differentiation is maintained. No nephrolithiasis is seen. No masses are identified. The urinary bladder is not visua lized. IMPRESSION: 1. No hydronephrosis. 2. Hepatic cirrhosis with perihepatic ascites.
--- NOTE | 2024-05-24 21:29 | XR ---
Beena Esqueda : 1955 EXAMINATION TYPE: XR chest 1V DATE OF EXAM: 04/22/2024 COMPARISON: None available during downtime HISTORY: 68-year-old female dialysis catheter placement TECHNIQUE: Single frontal view of the chest is obtained. FINDINGS: Heart upper limits of normal in size. Aorta and pulmonary vasculature within normal limits . There is a right-sided double-lumen hemodialysis catheter present with tip at the upper right atriu m. Some strandy atelectasis noted at the left base. No pneumothorax or pleural effusion. IMPRESSION: Right-sided double-lumen hemodialysis catheter tips at the upper right atrium.
--- NOTE | 2024-06-01 11:46 | US ---
EXAMINATION TYPE: US paracentesis abd w/image DATE OF EXAM: 05/24/2024 1:23 PM CLINICAL INDICATION:Female, 68 years old with history of ascites; COMPARISON: 04/19/2024 ATTENDING: Dr. Flako Quevedo PROCEDURE: Informed consent was obtained. The risks of the procedure were extensively explained incl uding risk of damage to surrounding bowel with perforation and need for additional procedures. Proced ure was performed in the ultrasound procedure suite. Ultrasound imaging of the abdomen demonstrate as citic fluid. An appropriate access site was localized to the right lower abdomen. Timeout was taken p er protocol. The skin was prepped and draped in the usual sterile fashion and then locally anesthetiz ed with 1% lidocaine. The peritoneal cavity was then accessed via a 5-Cook Islander one-step needle/cathete r. Approximately 7700 cc of clear straw-colored fluid was obtained. Postprocedural imaging of the a bdomen demonstrate a minimal amount of abdominal fluid. Patient tolerated procedure well without immediate complication. Hemostasis at the procedural site w as obtained with a sterile bandage placed. The patient was monitored in the holding area following th e procedure and was subsequently discharged in stable condition. IMPRESSION: Ultrasound guided paracentesis, with approximately 7700 cc of clear straw-colored fluid drained. No immediate complications were evident. [facility], , 06/01/2024 11:44 AM
== END 2024-05-06 09:06 | disposition hospice, inpatient (51) | DRG 432 ==
LOC: EC 20:32 → 4SSUR 23:11 → 2SICU 05-06 09:05 → 4SSUR 05-07 14:30
PROVIDERS: ADMIT Family Medicine; ATTEND Family Medicine
PROC: 0W9G3ZZ Drainage of Peritoneal Cavity, Percutaneous Approach (ICD-10-PCS; principal; 2024-03-31)
PROC: 30233J1 Transfusion of Nonautologous Serum Albumin into Peripheral Vein, Percutaneous Approach (ICD-10-PCS; 2024-03-31)
PROC: 0W9G3ZZ Drainage of Peritoneal Cavity, Percutaneous Approach (ICD-10-PCS; 2024-04-12)
PROC: 0W9G3ZZ Drainage of Peritoneal Cavity, Percutaneous Approach (ICD-10-PCS; 2024-04-19)
PROC: 02HV33Z Insertion of Infusion Device into Superior Vena Cava, Percutaneous Approach (ICD-10-PCS; 2024-04-22)
PROC: 5A1D70Z Performance of Urinary Filtration, Intermittent, Less than 6 Hours Per Day (ICD-10-PCS; 2024-04-22)
PROC: 30233N1 Transfusion of Nonautologous Red Blood Cells into Peripheral Vein, Percutaneous Approach (ICD-10-PCS; 2024-04-25)
PROC: 0W9G3ZZ Drainage of Peritoneal Cavity, Percutaneous Approach (ICD-10-PCS; 2024-04-29)
PROC: 03HY32Z Insertion of Monitoring Device into Upper Artery, Percutaneous Approach (ICD-10-PCS; 2024-05-04)
PROC: 4A133B1 Monitoring of Arterial Pressure, Peripheral, Percutaneous Approach (ICD-10-PCS; 2024-05-04)
PROC: 4A133J1 Monitoring of Arterial Pulse, Peripheral, Percutaneous Approach (ICD-10-PCS; 2024-05-04)
PROC: 02HV33Z Insertion of Infusion Device into Superior Vena Cava, Percutaneous Approach (ICD-10-PCS; 2024-05-04)
PROC: 3E043XZ Introduction of Vasopressor into Central Vein, Percutaneous Approach (ICD-10-PCS; 2024-05-04)
DX: K70.31 Alcoholic cirrhosis of liver with ascites (principal); E43 Unspecified severe protein-calorie malnutrition; K65.2 Spontaneous bacterial peritonitis; K76.7 Hepatorenal syndrome; N17.0 Acute kidney failure with tubular necrosis; K76.6 Portal hypertension; I85.10 Secondary esophageal varices without bleeding; T82.838A Hemorrhage due to vascular prosthetic devices, implants and grafts, initial encounter; D68.4 Acquired coagulation factor deficiency; E72.20 Disorder of urea cycle metabolism, unspecified; B37.0 Candidal stomatitis; E87.20 Acidosis, unspecified; E87.1 Hypo-osmolality and hyponatremia; J98.11 Atelectasis; D62 Acute posthemorrhagic anemia; J84.89 Other specified interstitial pulmonary diseases; K70.11 Alcoholic hepatitis with ascites; F10.20 Alcohol dependence, uncomplicated; K70.40 Alcoholic hepatic failure without coma; I48.91 Unspecified atrial fibrillation; K76.82 Hepatic encephalopathy; Z51.5 Encounter for palliative care; Z66 Do not resuscitate; Z53.8 Procedure and treatment not carried out for other reasons; E86.0 Dehydration; I95.1 Orthostatic hypotension; T50.1X1A Poisoning by loop [high-ceiling] diuretics, accidental (unintentional), initial encounter; D75.89 Other specified diseases of blood and blood-forming organs; E87.6 Hypokalemia; E87.70 Fluid overload, unspecified; R09.02 Hypoxemia; R31.0 Gross hematuria; W18.30XA Fall on same level, unspecified, initial encounter; Y71.1 Therapeutic (nonsurgical) and rehabilitative cardiovascular devices associated with adverse incidents; Y92.239 Unspecified place in hospital as the place of occurrence of the external cause; Y90.0 Blood alcohol level of less than 20 mg/100 ml; Z88.1 Allergy status to other antibiotic agents; Z68.26 Body mass index [BMI] 26.0-26.9, adult; Z79.899 Other long term (current) drug therapy
CPT/HCPCS: 36415; 49083; 71250; 73502; 74176; 74177; 80053; 80074; 80320; 81001; 81003; 82042; 82140; 82150; 82247; 82248; 83605; 83690; 83735; 83880; 84145; 84157; 84484; 85025; 85027; 85610; 85730; 86140; 87040; 87070; 87075; 87205; 87324; 87636; 88108; 88305; 89050; 93005; 93306; 94760; 96365; 96366; 96375; 96376; 99285

== ENCOUNTER 2024-05-06 09:07 | Inpatient (IN) | payer MEDICAID ==
[2024-05-08] MEDS ORDERED: ONDANSETRON 4 MG/2 ML VIAL IVP PRN (03:13)
[2024-05-08] MEDS: MORPHINE SULFATE (100 MG/2 ML) 100 MG in SODIUM CHLORIDE 0.9% 100 ML IV SCH (04:40)
[2024-05-08] MEDS: MORPHINE SULFATE 2 MG/ML SYRINGE IV PRN (17:28)
[2024-05-09] MEDS: LORazepam 2 MG/ML INJ IV PRN (00:25)
[2024-05-09] MEDS: SCOPOLAMINE 1 MG/72 HR PATCH TRANSDERM SCH (05:39)
[2024-05-09] MEDS: MORPHINE SULFATE 2 MG/ML SYRINGE ONE (11:37)
[2024-05-09] MEDS: LORazepam 2 MG/ML INJ ONE ×4 (12:32→12:33)
[2024-05-09 13:41] VITALS: PULSE 91
[2024-05-09 15:52] VITALS: BP 90/41
[2024-05-10 07:55] VITALS: BMI 26.3
[2024-05-10] MEDS: ATROPINE OPHTH SOLN 1% 5ML BTL SUBLINGUAL PRN (08:48)
[2024-05-10] MEDS: GLYCOPYRROLATE 0.2 MG/ML 2 ML VIAL IVP PRN ×2 (09:31→14:16)
[2024-05-10] MEDS: ACETAMINOPHEN SUPPOSITORY 650 MG SUPP RECTAL PRN (15:51)
[2024-05-11 02:45] VITALS: RESP 12
[2024-05-11] MEDS: HYDROmorphone 1 MG/ML 1 ML SYRINGE IVP PRN (09:46)
[2024-05-11] MEDS: HYDROmorphone (PF) 100 MG in SODIUM CHLORIDE 0.9% 90 ML IV SCH (09:47)
--- NOTE | 2024-05-18 15:00 | PN ---
PROGRESS NOTE DATE OF SERVICE: 05/09/2024 The patient remains in ICU, is on morphine drip. She is nonresponsive. She is comfortable. She does not have a lot of mucus or phlegm production. She appears to be breathing stable on her oxygen. She is on Transderm-Scop for secretions. She is managed with comfort care. Discussed with her care and she appears to be stable at this time. She is on hospice care. MMODL / IJN: [id number] /
== END 2024-05-11 16:53 | disposition expired | DRG 951 ==
LOC: 2SICU 09:07 → 5NMEDONC 05-09 14:30
PROVIDERS: ADMIT Family Medicine; ATTEND Family Medicine
DX: Z51.5 Encounter for palliative care (principal); K70.31 Alcoholic cirrhosis of liver with ascites; I48.91 Unspecified atrial fibrillation
CPT/HCPCS: 84145; 87040